=== PATIENT | male | born 1960 | race Caucasian/White ===

== ENCOUNTER → 2018-02-04 08:38 | Outpatient (REF) | payer OTHER, SELFPAY ==
[2018-02-04 18:50] LABS: Basophils # 0.1 K/mm3 (0-0.2); Basophils % 1.3 % (0.1-2.0); Eosinophils # 0.1 K/mm3 (0.0-0.4); Eosinophils % 1.3 % (0.1-12.0); Hematocrit 45.3 % (42.0-52.0); Hemoglobin 14.6 g/dL (14.1-18.0); Lymphocytes # 1.5 K/mm3 (0.7-4.5); Lymphocytes % 27.1 K/mm3 (10-50); Mean Corpuscular HGB Conc 32.3 g/dL (31.8-35.4); Mean Corpuscular Hemoglobin 29.5 pg (27.0-31.2); Mean Corpuscular Volume 91.5 fl (80-94); Monocytes # 0.4 K/mm3 (0.1-1.0); Monocytes % 6.5 % (1.7-9.3); Neutrophils # 3.4 K/mm3 (1.8-7.8); Neutrophils % 63.9 % (37.0-80.0); Platelet Count 325 K/mm3 (142-424); Red Blood Count 4.95 M/mm3 (4.60-6.20); Red Cell Distribution Width 13.6 % (11.5-17.5); White Blood Count 5.4 K/mm3 (4.8-10.8)
[2018-02-04 20:18] LABS: Alanine Aminotransferase 56 U/L (12-78); Albumin/Globulin Ratio 1.2 (1.1-1.8); Alkaline Phosphatase 130 U/L (46-116); Anion Gap 14.7 mEq/L (5-15); Aspartate Amino Transferase 31 U/L (15-37); Bilirubin,Total 0.3 mg/dL (0.2-1.0); Blood Urea Nitrogen 10 mg/dL (7-18); Calcium 9.1 mg/dL (8.5-10.1); Carbon Dioxide 28 mmol/L (21.0-32.0); Chloride 105 mmol/L (98-107); Cholesterol 175 mg/dL (140-200); Creatinine,Serum 0.86 mg/dL (0.70-1.30); Estimated Glomerular Filt Rate 92 ml/min (>60); GFR (African American) 111 ML/MIN (>60); Globulin 3.4 gm/dl (1.3-3.2); Glucose 98 mg/dL (74-106); HDL Cholesterol 35 mg/dL (27-67); LDL Cholesterol 72 mg/dL (0-130); Potassium 4.7 mmoL/L (3.5-5.1); Sodium 143 mmol/L (136-145); Thyroid Stimulating Hormone 1.49 uIU/ml (0.358-3.740); Total Protein,Serum 7.4 gm/dL (6.4-8.2); Triglycerides 341 mg/dL (30-200); VLDL Cholesterol 68 mg/dL (0-40)
== END ==
LOC: LAB 08:38
PROVIDERS: Visit Provider Nurse Practitioner Family
DX: I10 Essential (primary) hypertension (principal)
CPT/HCPCS: 80053; 80061; 82652; 84436; 84443; 85025

== ENCOUNTER → 2018-06-05 11:21 | Outpatient (CLI) | payer OTHER, SELFPAY ==
--- NOTE | 2018-06-05 11:26 | XR_ITS ---
XR hip RT 2-3V w/pelvis Ordering Physician: Umair Hawthorne MD Patient Age: 57 years: Male HISTORY: ITS.REASON: rt hip painAP pelvis with TECHNIQUE: AP and frog-leg view right hip.. COMPARISON :None FINDINGS The right femoral head and neck intact. Femoral head normal contour. Right hip joint space well maintained with only scant sclerosis about the joint Acetabulum is some minor hypertrophic lipping at its superior margin bilaterally at hips. Hip joint spaces adequately maintained with only borderline narrowing superiorly.. There could be some early subchondral cystic changes at the roof of the acetabulum on right more so than left. Equivocal. Degenerative facet changes at the lower L-spine L5/S1 noted The osseous pelvis is intact SI joints intact pubis and superior/inferior ramus intact. IMPRESSION: . Right hip intact. Only question some scant subtle degenerative changes at hips radiographically. Scant hypertrophic lipping superior rim of acetabulum possible early subchondral cystic changes roof of acetabulum question on plain film
== END ==
PROVIDERS: PCP Nurse Practitioner Family; Visit Provider Orthopaedic Surgery
DX: M25.551 Pain in right hip (principal)
CPT/HCPCS: 73502

== ENCOUNTER → 2018-06-17 13:33 | Outpatient (CLI) | payer OTHER, SELFPAY ==
--- NOTE | 2018-06-17 13:35 | MR_ITS ---
MR hip RT wo con Ordering Physician: Meredith Gordon MD Patient Age: 57 years: Male HISTORY severe right hip pain for 3 months.. Right leg pain with 18 at right ridley. No known injury . ITS.REASON: rule out AVN/ septic arthritis TECHNIQUE: Multiplanar multisequence imaging on 1.5 Jay[facility] MRI. COMPARISON :Plain films right hip 08/05/2017 FINDINGS A right & left femoral head appears symmetric and normal contour normal signal. No evidence of AVN in either hip. There is actually normal signal at both femoral heads.. RIGHT HIP : Arthritic Changes & Irregularities Involving involving the right acetabulum. ..:. Most notable is a focal moderate slightly generous subchondral cyst at the anterior/ superior aspect of the acetabulum this measuring up to 14 mm AP x 12 mm depth as nicely seen on sagittal image 18.. Associated small area of focal chondral thinning/loss here- at this developing osteochondral irregularity Also note more subtle degenerative signal changes, with possibly tiny developing subchondral cyst at the posterior superior acetabulum. These are best seen axial STIR slice 8, and sagittal slice 16 LEFT HIP.. Only very subtle increase signal likely reflecting early reactive degenerative changes at the posterior superior rim of acetabulum. Coronal image 16-14 Pelvic musculature well-developed. Moderate size prostate. SI joints, visualized inferior sacrum unremarkable. . There are generous fat along the right inguinal canal more so than left.. Generous caliber slightly dilated right inguinal ring -in fact Sagittal image 16 suggest developing fat-containing inguinal hernia. Clinical correlation required. -----IMPRESSION 1. 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 Most notable is the up to 14 mm AP Focal subchondral cystic feature// osteochondral irregularity at anterior superior acetabulum, ... With only Subtle reactive degenerative changes at posterior superior acetabulum 2. No evidence of AVN in either hip. Femoral heads normal contour & density. 3.Only question scant degenerative changes at the left hip 3. Generous fat along the right inguinal canal. Laxity at slight dilated right inguinal ring. Sagittal image suggest likely developing fat-containing right inguinal hernia.. No bowel loops
== END ==
PROVIDERS: PCP Emergency Medicine; Visit Provider Orthopaedic Surgery
DX: M25.551 Pain in right hip (principal)
CPT/HCPCS: 73721

== ENCOUNTER → 2019-01-23 07:27 | Outpatient (CLI) | payer OTHER, SELFPAY ==
[2019-01-23 07:44] LABS: Basophils # 0.1 K/mm3 (0-0.2); Eosinophils # 0.1 K/mm3 (0.0-0.4); Hematocrit 43.1 % (42.0-52.0); Lymphocytes # 1.5 K/mm3 (0.7-4.5); Lymphocytes % 24.7 % (10-50); Mean Corpuscular HGB Conc 32.5 g/dL (31.8-35.4); Mean Corpuscular Hemoglobin 29.5 pg (27.0-31.2); Mean Corpuscular Volume 90.9 fl (80-94); Monocytes # 0.3 K/mm3 (0.1-1.0); Monocytes % 5.5 % (1.7-9.3); Neutrophils # 4.1 K/mm3 (1.8-7.8); Neutrophils % 67.8 % (37.0-80.0); Platelet Count 361 K/mm3 (142-424); Red Blood Count 4.74 M/mm3 (4.60-6.20); Red Cell Distribution Width 13.5 % (11.5-17.5)
[2019-01-23 11:34] LABS: Alanine Aminotransferase 39 U/L (12-78); Albumin Level 3.8 gm/dL (3.4-5.0); Albumin/Globulin Ratio 1.2 (1.1-1.8); Alkaline Phosphatase 126 U/L (46-116); Anion Gap 15.5 mEq/L (5-15); Aspartate Amino Transferase 26 U/L (15-37); Bilirubin,Total 0.6 mg/dL (0.2-1.0); Blood Urea Nitrogen 10 mg/dL (7-18); Calcium 9.1 mg/dL (8.5-10.1); Carbon Dioxide 25 mmol/L (21.0-32.0); Chloride 102 mmol/L (98-107); Chol/HDL Ratio 3.8 (1-3.5); Cholesterol 132 mg/dL (140-200); Estimated Glomerular Filt Rate 87 ml/min (>60); GFR (African American) 105 ML/MIN (>60); Globulin 3.2 gm/dl (1.3-3.2); Glucose 90 mg/dL (74-106); HDL Cholesterol 35 mg/dL (27-67); LDL Cholesterol 69 mg/dL (0-130); Potassium 4.5 mmoL/L (3.5-5.1); Sodium 138 mmol/L (136-145); Triglycerides 139 mg/dL (30-200); VLDL Cholesterol 28 mg/dL (0-40)
[2019-01-26 03:31] LABS: Vitamin D 25 Hydroxy 44.4 ng/mL (30.0-100.0)
== END ==
PROVIDERS: Visit Provider Internal Medicine Cardiovascular Disease
DX: R01.1 Cardiac murmur, unspecified (principal); R42 Dizziness and giddiness; E78.5 Hyperlipidemia, unspecified; I10 Essential (primary) hypertension; I65.22 Occlusion and stenosis of left carotid artery
CPT/HCPCS: 36415; 80053; 80061; 82652; 85025

== ENCOUNTER → 2019-06-16 09:09 | Outpatient (CLI) | payer OTHER, SELFPAY ==
--- NOTE | 2019-06-16 09:18 | US_ITS ---
PROCEDURE: US GALLBLADDER CLINICAL INDICATION: abdominal pain and diarrhea Nausea after eating COMPARISON: No exams were available for comparison FINDINGS: Pancreas: Unremarkable/Not well seen Liver: Diffuse hepatic steatosis. No focal liver lesion demonstrated. There is appropriate direction of blood flow within a non dilated portal vein. Right kidney: Unremarkable appearing. No hydronephrosis. Gallbladder: No stones are evident. There is no gallbladder wall thickening. Common duct is normal in diameter. IMPRESSION: Negative gallbladder ultrasound. No stones evident. Hepatic steatosis Dictated by: Michael Zaragoza MD 06/16/2019 19:51 Electronically signed by Michael Zaragoza MD in [place] 06/16/2019 19:51
== END ==
PROVIDERS: PCP Emergency Medicine; Visit Provider Surgery
DX: K82.9 Disease of gallbladder, unspecified (principal); R10.9 Unspecified abdominal pain; R11.10 Vomiting, unspecified; R19.7 Diarrhea, unspecified
CPT/HCPCS: 76705

== ENCOUNTER → 2020-07-29 18:48 | Outpatient (CLI) | payer OTHER, SELFPAY ==
[2020-07-29 19:12] LABS: Basophils # 0.1 K/mm3 (0-0.2); Basophils % 1.1 % (0.1-2.0); Eosinophils # 0.1 K/mm3 (0.0-0.4); Eosinophils % 0.8 % (0.1-12.0); Hematocrit 42.8 % (42.0-52.0); Hemoglobin 14.5 g/dL (14.1-18.0); Lymphocytes # 2.1 K/mm3 (0.7-4.5); Lymphocytes % 28.3 % (10-50); Mean Corpuscular HGB Conc 33.8 g/dL (31.8-35.4); Mean Corpuscular Hemoglobin 30.3 pg (27.0-31.2); Mean Corpuscular Volume 89.6 fl (80-94); Mean Platelet Volume 8.1 fl (7.4-10.4); Monocytes # 0.5 K/mm3 (0.1-1.0); Monocytes % 7.2 % (1.7-9.3); Neutrophils # 4.6 K/mm3 (1.8-7.8); Neutrophils % 62.6 % (37.0-80.0); Platelet Count 370 K/mm3 (142-424); Red Blood Count 4.78 M/mm3 (4.60-6.20); Red Cell Distribution Width 13.8 % (11.5-17.5); White Blood Count 7.4 K/mm3 (4.8-10.8)
[2020-07-29 19:20] LABS: Alanine Aminotransferase 62 U/L (12-78); Albumin Level 4.6 g/dl (3.5-5.0); Albumin/Globulin Ratio 1.5 (1.1-1.8); Alkaline Phosphatase 130 U/L (38-126); Anion Gap 13.1 mEq/L (5-15); Aspartate Amino Transferase 52 U/L (17-59); Bilirubin,Total 0.4 mg/dl (0.2-1.3); Blood Urea Nitrogen 9 mg/dl (9-20); Carbon Dioxide 27 mmol/L (22.0-30.0); Chloride 99 mmol/L (98-107); Cholesterol 189 mg/dl (140-200); Estimated Glomerular Filt Rate 99 ml/min (>60); GFR (African American) 120 ML/MIN (>60); Glucose 123 mg/dl (74-100); HDL Cholesterol 38 mg/dl (40-60); Potassium 4.1 mmoL/L (3.5-5.1); Sodium 135 mmol/L (136-145); Total Protein,Serum 7.6 g/dl (6.3-8.2); Triglycerides 368 mg/dl (30-150); VLDL Cholesterol 74 mg/dL (0-40)
[2020-07-29 19:31] LABS: Direct LDL Cholesterol 88.32 mg/dL (100-129)
[2020-07-29 19:38] LABS: Free T4 (Free Thyroxine) 0.77 ng/dl (0.78-2.19)
[2020-07-29 19:53] LABS: Prostate Specific Ag Screen 0.2 ng/ml (0.0-4.0); Thyroid Stimulating Hormone 1.48 uIU/mL (0.465-4.68)
== END ==
PROVIDERS: PCP Nurse Practitioner Family; Visit Provider Nurse Practitioner Family
DX: Z00.00 Encounter for general adult medical examination without abnormal findings (principal); Z12.5 Encounter for screening for malignant neoplasm of prostate; I10 Essential (primary) hypertension; E78.5 Hyperlipidemia, unspecified
CPT/HCPCS: 80053; 80061; 84439; 84443; 85025; G0103

== ENCOUNTER 2020-11-14 13:16 | Emergency (ER) | payer OTHER, SELFPAY ==
[2020-11-14 13:17] VITALS: BP 173/84; PULSE 67; RESP 16; TEMP 36.6; O2SAT 98; BMI 31.6
--- NOTE | 2020-11-14 14:16 | HMH.EDGENADL ---
ED Disposition Clinical Impression: Lumbar strain Qualifiers: Encounter type: initial encounter Qualified Code(s): S39.012A - Strain of muscle, fascia and tendon of lower back, initial encounter Disposition: Home, Self-Care Condition on Discharge: Good Instructions: DI for Low Back Pain Additional Instructions: Rosepine and ibuprofen for pain. Additional instructions for BACK PAIN: See your physician as soon as possible for further evaluation. Return immediately if back pain becomes intolerable, or if fever, numbness or weakness of your legs, loss of control of your bowels or bladder. Additional instructions for CONTROLLED SUBSTANCES: You have been prescribed a medication that is a controlled substance. Controlled substances include pain medications known as opiates and sedative nerve medications known as benzodiazepines. Tramadol, fioricet, and gabapentin are also controlled substances. Some common opiates include: Codeine (such as Tylenol #3) Hydrocodone (Vicodin, Lortab, Lorcet, Rosepine) Oxycodone (Percocet, Percodan, Oxycodone, Oxy IR) Some common benzodiazepines include: Diazepam (Valium) Lorazepam (Ativan) Alprazolam (Xanax) Clonazepam (Klonopin) Oxazepam (Serax) All of these controlled substances are highly addictive and frequently abused. Misuse can and frequently does lead to addiction as well as overdose and . Medication should be stored in a locked cabinet or other secure storage unit. Do not store the medication in a motor vehicle. Short term supplies, 3 days or less, are prescribed because of the highly addictive nature of the medication. Any of the controlled substance medication NOT taken should be disposed of properly and NOT SAVED. The recommended method of disposing of unused medications is: Place the medicines in a sealable plastic bag. If the medicine is a solid, crush it or add water to dissolve it. Add something undesirable (cat litter, coffee grounds, etc.) Dispose of sealed bag in household trash Do not flush or pour unused medicines down a sink or drain. Controlled substances should not be shared, given away or sold. Because of the addictive nature and frequent abuse, these medications are sometimes stolen. These medications should be kept in a safe place where they cannot be stolen. Do not keep them in your car or purse. Lost or stolen prescriptions for controlled substances WILL NOT BE REFILLED in this emergency department, regardless of whether a police report was filed. Prescriptions: Hydrocod/Acet 5/325 mg [Rosepine 5/325mg tablet] 1 tab PO Q6HP PRN #10 tab PRN Reason: Pain Transmission Status: Received by [id number] Ibuprofen [Ibuprofen 800mg Tablet] 800 mg PO Q8HP PRN #15 tab PRN Reason: Moderate Pain Transmission Status: Pending to [id number] Referrals: Chip Falcon MD [Primary Care Provider] - - Critical Care Critical Care Time: No Attestation: On 11/14/20, the high probability of a clinically significant, sudden or life threatening deterioration of the following system(s) required my full and direct attention, intervention and personal management. The time I documented below is in addition to time spent performing reported procedures but includes the following listed in this critical care notation. Medical Decision Making - Rancho Inquiry Pt receiving controlled substance: Yes Rancho was queried for this patient: Yes Risks and benefits of using a controlled substance: were discussed with pt by me Vital Signs: 11/14/20 13:17 Temperature 98 F Temperature Source Oral Pulse Rate [Radial] 67 Respiratory Rate 16 Blood Pressure [Right Arm] 173/84 H Blood Pressure Mean [Right Arm] 113 Blood Pressure Position [Right Arm] Sitting 02 Sat by Pulse Oximetry 98 Oxygen Delivery Method Room Air Orders (Tests/Meds): ED MEDICATIONS Discontinued Medications Generic Name Dose Route Start Last Admin Trade Name F
[2020-11-14 14:51] VITALS: BP 160/83; PULSE 88; RESP 97; TEMP 36.6
== END 2020-11-14 14:52 | disposition home or self-care (01) ==
PROVIDERS: Emergency Provider Emergency Medicine; PCP Emergency Medicine
DX: S39.012A Strain of muscle, fascia and tendon of lower back, initial encounter (principal); X50.1XXA Overexertion from prolonged static or awkward postures, initial encounter; Y92.89 Other specified places as the place of occurrence of the external cause; I10 Essential (primary) hypertension; E78.5 Hyperlipidemia, unspecified; K21.9 Gastro-esophageal reflux disease without esophagitis; F33.1 Major depressive disorder, recurrent, moderate; Z79.899 Other long term (current) drug therapy
CPT/HCPCS: 96372; 99281; J2405

== ENCOUNTER → 2021-01-25 13:53 | Outpatient (CLI) | payer SELFPAY | PROVIDERS: Visit Provider Nurse Practitioner Family | DX: L98.9 Disorder of the skin and subcutaneous tissue, unspecified (principal) | CPT/HCPCS: 87070; 87077; 87186; 87205 ==

== ENCOUNTER → 2021-03-10 17:11 | Outpatient (CLI) | payer SELFPAY ==
[2021-03-10 17:46] LABS: Adenovirus,PCR Not Detected (NotDetected); Bordetella Pertussis Not Detected (NotDetected); Chlamydophila Pneumoniae, PCR Not Detected (NotDetected); Coronavirus 229E Not Detected (NotDetected); Coronavirus NL63 Not Detected (NotDetected); Coronavirus OC43 Not Detected (NotDetected); Coronovirus HKU1,PCR Not Detected (NotDetected); Human Metapneumovirus Not Detected (NotDetected); Influenza A, PCR Not Detected (NotDetected); Influenza AH1, 2009 Not Detected (NotDetected); Influenza AH1, PCR Not Detected (NotDetected); Influenza AH3,PCR Not Detected (NotDetected); Influenza B, PCR Not Detected (NotDetected); Mycoplasma Pneumoniae, PCR Not Detected (NotDetected); Parainfluenza 1, PCR Not Detected (NotDetected); Parainfluenza 2, PCR Not Detected (NotDetected); Parainfluenza 3, PCR Not Detected (NotDetected); Parainfluenza 4, PCR Not Detected (NotDetected); Respiratory Syncytial Virus Not Detected (NotDetected); Rhinovirus/Enterovirus Not Detected (NotDetected)
== END ==
PROVIDERS: Visit Provider Nurse Practitioner Family
DX: Z20.822 Contact with and (suspected) exposure to COVID-19 (principal)
CPT/HCPCS: 87486; 87581; 87633; 87798; U0003

== ENCOUNTER → 2021-03-21 08:24 | Outpatient (CLI) | payer SELFPAY ==
--- NOTE | 2021-03-21 08:33 | US_ITS ---
PROCEDURE: US GALLBLADDER CLINICAL INDICATION: RUQ Pain COMPARISON: US US GALLBLADDER from 06/16/2019 FINDINGS: Pancreas: Unremarkable/Not well seen Liver: Diffuse increased echogenicity of the liver with poor through transmission of sound consistent with hepatic steatosis. No focal liver lesion demonstrated. There is appropriate direction of blood flow within non dilated portal vein.There is appropriate direction of blood flow within a non dilated portal vein. Right kidney: Unremarkable appearing. No hydronephrosis. Gallbladder: No shadowing stones. No mobile stones. Small focus of increased echogenicity is present in the region of the neck of the gallbladder possibly due to small stone. This however is questionable. MRI with MRCP may confirm if clinically desired. IMPRESSION: Fatty liver. Possible small stone in the neck of the gallbladder. This is questionable. MRI/MRCP may confirm if clinically warranted Dictated by: Michael Zaragoza MD 03/21/2021 11:45 Michael Zaragoza MD in [place] 03/21/2021 11:45
== END ==
PROVIDERS: PCP Emergency Medicine; Visit Provider Nurse Practitioner Family
DX: R10.11 Right upper quadrant pain (principal)
CPT/HCPCS: 76705

== ENCOUNTER → 2021-07-21 17:30 | Outpatient (CLI) | payer SELFPAY ==
[2021-07-21 17:35] LABS: Coronavirus 19, PCR Not Detected (NotDetected); Influenza A, PCR Not Detected (NotDetected); Influenza B, PCR Not Detected (NotDetected)
== END ==
PROVIDERS: Visit Provider Nurse Practitioner Family
DX: Z20.822 Contact with and (suspected) exposure to COVID-19 (principal); R05.9 Cough, unspecified
CPT/HCPCS: C9803; U0003; U0005

== ENCOUNTER → 2021-10-29 10:00 | Outpatient (CLI) | payer MEDICAID, SELFPAY ==
[2021-10-29 11:01] LABS: Basophils # 0.1 K/mm3 (0-0.2); Basophils % 1.9 % (0.1-2.0); Eosinophils % 0.9 % (0.1-12.0); Hematocrit 42.1 % (42.0-52.0); Hemoglobin 14.1 g/dL (14.1-18.0); Lymphocytes # 1.5 K/mm3 (0.7-4.5); Lymphocytes % 31.8 % (10-50); Mean Corpuscular HGB Conc 33.4 g/dL (31.8-35.4); Mean Corpuscular Hemoglobin 30.7 pg (27.0-31.2); Mean Corpuscular Volume 91.9 fl (80-94); Monocytes # 0.3 K/mm3 (0.1-1.0); Monocytes % 6.1 % (1.7-9.3); Neutrophils # 2.9 K/mm3 (1.8-7.8); Neutrophils % 59.3 % (37.0-80.0); Platelet Count 318 K/mm3 (142-424); Red Blood Count 4.58 M/mm3 (4.60-6.20); Red Cell Distribution Width 14.2 % (11.5-17.5); White Blood Count 4.9 K/mm3 (4.8-10.8)
[2021-10-29 11:23] LABS: Hemoglobin A1C 6.8 % (4.0-6.0)
[2021-10-29 11:37] LABS: Alanine Aminotransferase 60 U/L (12-78); Albumin Level 4.1 g/dl (3.5-5.0); Albumin/Globulin Ratio 1.6 (1.1-1.8); Alkaline Phosphatase 119 U/L (38-126); Anion Gap 12.4 mEq/L (5-15); Aspartate Amino Transferase 58 U/L (17-59); Bilirubin,Total 0.6 mg/dl (0.2-1.3); Blood Urea Nitrogen 9 mg/dl (9-20); Calcium 9.1 mg/dl (8.4-10.2); Carbon Dioxide 25 mmol/L (22.0-30.0); Chloride 105 mmol/L (98-107); Chol/HDL Ratio 4.8 (1-3.5); Cholesterol 158 mg/dl (140-200); Estimated Glomerular Filt Rate 115 ml/min (>60); GFR (African American) 139 ML/MIN (>60); Globulin 2.6 g/dL (1.3-3.2); Glucose 113 mg/dl (74-100); HDL Cholesterol 33 mg/dl (40-60); Potassium 4.4 mmoL/L (3.5-5.1); Sodium 138 mmol/L (136-145); Total Protein,Serum 6.7 g/dl (6.3-8.2); Triglycerides 197 mg/dl (30-150); VLDL Cholesterol 39 mg/dL (0-40)
[2021-10-29 11:53] LABS: Free T4 (Free Thyroxine) 0.63 ng/dl (0.78-2.19)
[2021-10-29 12:07] LABS: Prostate Specific Ag Screen 0.2 ng/ml (0.0-4.0)
[2021-10-29 12:10] LABS: Thyroid Stimulating Hormone 1.36 uIU/mL (0.465-4.68)
== END ==
PROVIDERS: Visit Provider Emergency Medicine
DX: I10 Essential (primary) hypertension (principal); Z79.899 Other long term (current) drug therapy; Z12.5 Encounter for screening for malignant neoplasm of prostate
CPT/HCPCS: 36415; 80053; 80061; 83036; 84439; 84443; 85025; G0103

== ENCOUNTER → 2021-11-09 10:53 | Outpatient (CLI) | payer MEDICAID, SELFPAY | PROVIDERS: Visit Provider Plastic Surgery | DX: Z11.52 Encounter for screening for COVID-19 (principal); C44.612 Basal cell carcinoma of skin of right upper limb, including shoulder; L98.9 Disorder of the skin and subcutaneous tissue, unspecified | CPT/HCPCS: C9803; U0003; U0005 ==

== ENCOUNTER 2022-01-21 15:43 | Emergency (ER) | payer MEDICAID, SELFPAY ==
[2022-01-21 15:43] VITALS: BP 170/85; PULSE 85; RESP 19; TEMP 36.8; O2SAT 98; BMI 32.5
--- NOTE | 2022-01-21 15:54 | HMH.EDGENADL ---
ED Disposition Clinical Impression: Chest pain Qualifiers: Chest pain type: precordial pain Qualified Code(s): R07.2 - Precordial pain Disposition: Home, Self-Care Condition on Discharge: Good Instructions: DI for Chest Pain Additional Instructions: See Dr. Yoo in his office on Sunday morning at 9 AM. Additional instructions for CHEST PAIN: Return immediately if worsening chest pain, vomiting, shortness of breath, fever, coughing of blood. Prescriptions: bisoproloL fumarate [Bisoprolol Fumarate] 10 mg PO DAILY #14 tab Transmission Status: Pending to [id number] Isosorbide Mononitrate [Imdur 30mg ER tablet] 30 mg PO DAILY #14 tab Transmission Status: Pending to [id number] Referrals: Chip Falcon MD [Primary Care Provider] - - Critical Care Critical Care Time: No Attestation: On , the high probability of a clinically significant, sudden or life threatening deterioration of the following system(s) required my full and direct attention, intervention and personal management. The time I documented below is in addition to time spent performing reported procedures but includes the following listed in this critical care notation. Medical Decision Making - Rancho Inquiry Pt receiving controlled substance: No Rancho was queried for this patient: Yes Vital Signs: 01/21/22 15:43 01/21/22 16:00 01/21/22 16:31 Temperature 98.3 F Temperature Source Oral Pulse Rate 77 75 Pulse Rate [Right Radial] 85 Respiratory Rate 19 16 16 Blood Pressure 164/95 H 147/79 H Blood Pressure [Right Arm] 170/85 H Blood Pressure Mean 118 101 Blood Pressure Mean [Right Arm] 113 Blood Pressure Source [Right Arm] Automatic Cuff Blood Pressure Position [Right Arm] Sitting 02 Sat by Pulse Oximetry 98 96 98 Oxygen Delivery Method Room Air 01/21/22 17:30 01/21/22 18:01 Temperature Temperature Source Pulse Rate 73 65 Pulse Rate [Right Radial] Respiratory Rate 15 15 Blood Pressure 143/79 H 125/64 Blood Pressure [Right Arm] Blood Pressure Mean 98 84 Blood Pressure Mean [Right Arm] Blood Pressure Source [Right Arm] Blood Pressure Position [Right Arm] 02 Sat by Pulse Oximetry 97 95 Oxygen Delivery Method - Lab Data Lab Results 01/21/22 15:50: Sodium 130 L, Potassium 4.1, Chloride 99, Carbon Dioxide 22, Anion Gap 13.1, BUN 10, Creatinine 0.60 L, Estimated Creat Clear 109, Estimated GFR 137, Est GFR ( Amer) 166, Glucose 255 H, Calcium 8.8, Troponin I 0.01 01/21/22 16:41: WBC 7.2, RBC 4.23 L, Hgb 12.5 L, Hct 39.1 L, MCV 92.4, MCH 29.6, MCHC 32.0, RDW 14.0, Plt Count 281, MPV 7.2 L, Neut % (Auto) 64.1, Lymph % (Auto) 25.7, [place] % (Auto) 7.7, Eos % (Auto) 0.8, Baso % (Auto) 1.7, Neut # (Auto) 4.6, Lymph # (Auto) 1.9, [place] # (Auto) 0.6, Eos # (Auto) 0.1, Baso # (Auto) 0.1 01/21/22 17:30: SARS-CoV-2 (PCR) Not detected, Influenza A Untype (PCR) Not detected, Influenza Type B (PCR) Not detected 01/21/22 18:31: Troponin I 0.02 Result diagrams: 01/21/22 16:41 01/21/22 15:50 Orders (Tests/Meds): ED MEDICATIONS Generic Name Dose Route Start Last Admin Trade Name Freq PRN Reason Stop Dose Admin Bisoprolol Fumarate 10 mg 01/21/22 17:00 01/21/22 17:31 Bisoprolol 5mg Tablet PO 02/20/22 16:59 10 mg DAILY EROS Administration Isosorbide Mononitrate 30 mg 01/21/22 17:00 01/21/22 17:31 Isosorbide [place] 30mg Tab.Er.24h PO 02/20/22 16:59 30 mg DAILY EROS Administration Sodium Chloride 10 ml 01/21/22 15:59 Sodium Chloride 0.9% 10ml Flush Syringe IV 02/20/22 15:58 NEEDED PRN Maintain IV Site Discontinued Medications Generic Name Dose Route Start Last Admin Trade Name Freq PRN Reason Stop Dose Admin Aspirin 324 mg 01/21/22 16:03 01/21/22 16:49 Aspirin 81mg Chewable Tablet PO 01/21/22 16:04 324 mg ONCE ONE Administration Nitroglycerin 0.4 mg 01/21/22 16:02 Nitroglycerin 0.4mg Sl Tablet SL 02/20/22 16:01 Q5M
--- NOTE | 2022-01-21 15:59 | XR_ITS ---
PROCEDURE INFORMATION: Exam: XR Chest Exam date and time: 01/21/2022 4:04 PM Age: 61 years old Clinical indication: Shortness of breath; Additional info: Cp TECHNIQUE: Imaging protocol: Radiologic exam of the chest. Views: 1 view. COMPARISON: CR CXR CHEST(2 VIEWS-NOT PORTABLE) 03/21/2016 9:15 PM FINDINGS: Airway: The airways are patent. Lungs: No acute interstitial or airspace disease. Pleural spaces: No pleural effusions or pneumothorax. Heart/Mediastinum: The heart is mildly enlarged. Vasculature: Coronary artery stents are suggested. Consider correlation with surgical history. Bones/joints: No acute skeletal abnormality or aggressive osseous lesion. IMPRESSION: No acute thoracic pathology.
--- NOTE | 2022-01-21 15:59 | ECG_ITS ---
APPROVED REPORT Exam: Resting ECG HR:82 bpm ECG Measurements Heart Rate 82 AXES MI 137 P -23 QRSd 82 QRS 108 QT 354 T 147 QTc 393 Conclusion SINUS RHYTHM RIGHT AXIS DEVIATION [QRS AXIS > 100] NONSPECIFIC T-WAVE ABNORMALITY ABNORMAL ECG UNCONFIRMED REPORT Electronically signed by : Cale Diana MD 01/23/2022 21:32:19
[2022-01-21 16:00] VITALS: BP 164/95; PULSE 77; RESP 16; O2SAT 96
[2022-01-21 16:08] LABS: Chloride 99 mmol/L (98-107); Potassium 4.1 mmoL/L (3.5-5.1); Sodium 130 mmol/L (136-145)
[2022-01-21 16:11] LABS: Anion Gap 13.1 mEq/L (5-15); Blood Urea Nitrogen 10 mg/dl (9-20); Calcium 8.8 mg/dl (8.4-10.2); Carbon Dioxide 22 mmol/L (22.0-30.0); Creatinine Clearance Estimated 109 mL/min (50-200); Estimated Glomerular Filt Rate 137 ml/min (>60); GFR (African American) 166 ML/MIN (>60); Glucose 255 mg/dl (74-100)
[2022-01-21 16:24] LABS: Troponin I 0.01 ng/ml (0.00-0.034)
[2022-01-21 16:31] VITALS: BP 147/79; PULSE 75; RESP 16; O2SAT 98
[2022-01-21 17:18] LABS: Basophils # 0.1 K/mm3 (0-0.2); Basophils % 1.7 % (0.1-2.0); Eosinophils # 0.1 K/mm3 (0.0-0.4); Eosinophils % 0.8 % (0.1-12.0); Hematocrit 39.1 % (42.0-52.0); Hemoglobin 12.5 g/dL (14.1-18.0); Lymphocytes # 1.9 K/mm3 (0.7-4.5); Lymphocytes % 25.7 % (10-50); Mean Corpuscular Hemoglobin 29.6 pg (27.0-31.2); Mean Corpuscular Volume 92.4 fl (80-94); Mean Platelet Volume 7.2 fl (7.4-10.4); Monocytes # 0.6 K/mm3 (0.1-1.0); Monocytes % 7.7 % (1.7-9.3); Neutrophils # 4.6 K/mm3 (1.8-7.8); Neutrophils % 64.1 % (37.0-80.0); Platelet Count 281 K/mm3 (142-424); Red Blood Count 4.23 M/mm3 (4.60-6.20); White Blood Count 7.2 K/mm3 (4.8-10.8)
[2022-01-21 17:30] VITALS: BP 143/79; PULSE 73; RESP 15; O2SAT 97
[2022-01-21 18:01] VITALS: BP 125/64; PULSE 65; RESP 15; O2SAT 95
[2022-01-21 18:05] LABS: Coronavirus 19, PCR Not Detected (NotDetected); Influenza A, PCR Not Detected (NotDetected); Influenza B, PCR Not Detected (NotDetected)
--- NOTE | 2022-01-21 18:05 | PC.NURSE ---
pt states feeling better after meds given
[2022-01-21 19:08] LABS: Troponin I 0.02 ng/ml (0.00-0.034)
[2022-01-21 19:51] VITALS: BP 121/78; PULSE 61; RESP 16; TEMP 37.1; O2SAT 96
== END 2022-01-21 19:57 | disposition home or self-care (01) ==
PROVIDERS: Emergency Provider Emergency Medicine; PCP Emergency Medicine
DX: R07.2 Precordial pain (principal); Z79.82 Long term (current) use of aspirin; Z79.84 Long term (current) use of oral hypoglycemic drugs; Z79.899 Other long term (current) drug therapy; Z88.1 Allergy status to other antibiotic agents; E11.9 Type 2 diabetes mellitus without complications; I10 Essential (primary) hypertension; E78.5 Hyperlipidemia, unspecified; K21.9 Gastro-esophageal reflux disease without esophagitis; F32.A Depression, unspecified
CPT/HCPCS: 36415; 71045; 80048; 84484; 85025; 93005; 99284; C9803; U0003; U0005

== ENCOUNTER → 2022-01-30 07:11 | Outpatient (CLI) | payer MEDICAID, SELFPAY ==
--- NOTE | 2022-01-30 07:11 | CA_ITS ---
APPROVED REPORT EXAM: Comprehensive 2D, Doppler, and color-flow Echocardiogram Sr Account Executive: Ana Dickens CRT Ht: 5 ft 9 in Wt: 220lbs BSA: 2.15 BP: 120/69 mmHg Indications: Chest Pain, Shortness of Breath, CAD, Hyperlipidemia, Hypertension/HDD 2D Dimensions LVOT 1.94 cm (M/F) 1.5-2.5 M-Mode Dimensions RVDd 2.86 cm (0.9-2.6) LA Diam 3.21 cm (1.9-4.0) LVDd 4.00 cm (3.5-5.7) Ao Diam 4.41 cm (2.0-3.7) LVDs 2.19 cm (3.5-5.7) IVSd 1.60 cm (0.6-1.1) PWd 1.11 cm (0.6-1.1) EF (Teich) 77.10% FS 45.30% EDV (Teich) 70.00 mL TAPSE 2.06 (<1.7) ESV (Teich) 16.00 mL LV Diastology E Decel Time 340.00 (160-240 msec) E/A Ratio 1.05 MED E' 4.70 (< 7 cm/sec) MED A' 9.50 cm/s E'/MED E' Ratio 16.98 (>14) LAT E' 4.80 (<10 cm/sec) LAT A' 10.00 cm/s E/LAT E' Ratio 16.62 (>14) Aortic Valve AI PHT 438.00 ms AO Peak GR. 9.60 mmHg Mitral Valve MV E Max Josh. 80.00 (40-130 cm/s) MV A Velocity 76.00 (40-130 cm/s) E/A Ratio 1.05 MV Decel. Time 340.00 (160-240 ms) MV PHT 100.00 ms Pulmonary Valve PV Peak Velocity 100.00 (50-150 cm/s) Tricuspid Valve TR P. Velocity 233.00 cm/s RAP Estimate 10.00 mmHg RVSP 31.80 mmHg Left Ventricle Atrium is mildly enlarged, left ventricle is normal size, mild concentric left ventricular hypertrophy, estimated ejection fraction 55% with no regional wall motion abnormality, grade 1 diastolic dysfunction seen without tissue Doppler evidence of raise left atrial pressure. Right Ventricle Right atrium and right ventricle are mildly enlarged with normal contractility. Aortic Valve Aortic valve is minimally thickened and fibrosed there is no aortic stenosis, there is trace aortic insufficiency. Mitral Valve Mitral valve is grossly normal, there is trace mitral regurgitation. Tricuspid Valve Tricuspid valve grossly normal, there is trace tricuspid regurgitation, tricuspid regurgitation jet velocity is inadequate for calculation of the right ventricular systolic pressure. Pulmonic Valve Pulmonic valve is poorly visualized. Great Vessels Aortic root is normal size. Inferior vena cava is poorly visualized. Pericardium No significant pericardial effusion. Conclusion 1. Biatrial enlargement, normal left ventricular size, mild concentric left ventricular hypertrophy, estimated ejection fraction 55% with no regional wall motion abnormality, grade 1 diastolic dysfunction seen without tissue Doppler evidence of raise left atrial pressure. 2. Trace aortic, mitral and tricuspid regurgitation. 3. No significant pericardial effusion noted. 4. Inferior vena cava is poorly visualized. Electronically signed by : Balbir Resendiz MD 01/30/2022 20:30:42
--- NOTE | 2022-01-30 07:17 | NM_ITS ---
APPROVED REPORT Exam: Nuclear Stress Test Indication: Chest pain, SOB, CAD, HTN, DM, High cholesterol Patient Location: Outpatient Stress Tech: Amy Adhikari [place] Tech:Cassandra Ley, ARRT, RT (R)(N) Ht: 5 ft 9 in Wt: 212 lbs HR: 72 bpm BP: 148/85 mmHg BSA: 2.12 m2 TID: 1.20 BMI: 31.3 History: Chest pain, SOB, CAD, HTN, DM, High cholesterol Procedure: Patient exercised on Mayo protocol 8:00 minutes and sec, resting heart rate 72 bpm, resting blood pressure 148/85 mmHg, with exercise maximum heart rate achived was 144 bpm which is 91 % of the maximum predicted heart rate and blood pressure was 198/92 mmHg. Test was stopped due to SOB. Patient denied any complaint of chest pain. Patient has Good exercise capacity, achieved 10.1 METs of workload on treadmill, the blood pressure response to exercise was Adequate. Electrocardiogram Resting electrocardiogram shows sinus rhythm nonspecific ST-T changes, with exercise there is less than 1.[address] segment depression noted from the baseline EKG. The EKG portion of the exercise Myoview is nondiagnostic due to baseline abnormal EKG. Cardiac Stress and Resting SPECT Images: Cardiac Stress and Resting SPECT images were obtained using technetium 99m Myoview 30.5 mCi stress and 9.93 mCi at rest. Gated SPECT for analysis of segmental wall motion and calculation of the ejection fraction also done. Cardiac stress and resting SPECT images show uniform myocardial activity without segmental perfusion abnormality, computer derived ejection fraction 64% with no regional wall motion abnormality, right ventricle is normal size and contractility. Conclusion: 1. The EKG portion of the exercise Myoview is nondiagnostic due to baseline abnormal EKG, patient has good exercise capacity achieved 10.1 METs of workload on treadmill, the blood pressure response to exercise was adequate, there was no exercise-induced chest discomfort. 2. No scintigraphic evidence of reversible ischemia seen, compared to ejection fraction 64% with no regional wall motion abnormality, right ventricle is normal size and contractility. 3. Normal exercise Myoview study. Electronically signed by : Balbir Resendiz MD 01/30/2022 20:20:34
--- NOTE | 2022-01-30 09:19 | HMH.ITSHM ---
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 []LISINOPRIL ISOSORBIDE VITAMIN D3 BISOPROLOL ASA POTASSIUM OMEPRAZOLE CLOPIDOGREL CITALOPRAM CETIRIZINE ATORVASTATIN
--- NOTE | 2022-01-30 09:29 | CA_ITS ---
APPROVED REPORT Exam: Exercise Treadmill Technologist: Amy Lyman, Ht: 5 ft 9 in Wt: 220 lbs BSA: 2.15 m2 HR: 70 bpm BP: 135/80 mmHg Medical History Medications: Lisinopril,,,,, Omeprazole,,,,, Aspirin,,,,, Vitamin D3,,,,, Atorvastatin,,,,, Citalopram,,,,, CloPIdogrel,,,,, BisOPROLOL Fumarate,,,,, CetIRIZINE,,,,, Potassium,,,,, Isosorbide Monoitrate ER,,,,, Stress Test Details Test: Mayo HR Resting HR: 72 bpm Max Heart Rate (APMHR): 159.556802 bpm Max HR Achieved: 144 bpm Target HR (85% APMHR): 135.030030 bpm % of APMHR: 90.57 Recovery HR: 88 bpm BP Resting BP: 148/85 mmHg Max BP: 198/92 mmHg Recovery BP: 182.0/76.0 mmHg ECG Resting ECG: NSR, SNNTTW Abnormalities, PRWPA Clinical Reason for Termination: Leg Pain Dyspnea, Completed protocol Exercise duration: 08:00 min Highest Stage Achieved: III Exercise capacity: 10.1 METs Stress ECG Conclusion Max HR: 144 % of PM: 106 METs: 10.1 Test stopped due to: Hip/knee discomfort Symptoms: No CP Arrhythmias/Ectopy: None ST-T Changes: <1.5mm ST segment changes Conclusion: Negative stress. See Nuclear Imaging report. Test Summary RECOVERY 01:00 0.0 0.0 130 . . . Stop exercise at 08:00 REST . . . . . . . Standing REST 07:04 0.0 1.2 72 . 148/ 85 . . Stage 1 01:00 10.0 1.7 91 . . . . Stage 1 02:00 10.0 1.7 97 . . . . Stage 1 03:00 10.0 1.7 103 . 182/ 90 . . Stage 2 01:00 12.0 2.5 107 . . . . Stage 2 02:00 12.0 2.5 114 . . . . Stage 2 03:00 12.0 2.5 120 . 198/ 92 . . Stage 3 01:00 14.0 3.4 134 . . . . Stage 3 02:00 14.0 3.4 142 . . . Stop exercise at 08:00 RECOVERY 01:00 0.0 0.0 130 . . . . RECOVERY 02:00 0.0 0.0 105 . . . . RECOVERY 03:00 0.0 0.0 91 . 172/ 76 . . RECOVERY 04:00 0.0 0.0 86 . 172/ 76 . . RECOVERY 04:11 0.0 0.0 86 . 172/ 76 . . Electronically signed by : Balbir Resendiz MD 01/30/2022 20:17:50
== END ==
PROVIDERS: PCP Emergency Medicine; Visit Provider Nurse Practitioner
DX: I20.8 Other forms of angina pectoris (principal); I10 Essential (primary) hypertension; E78.5 Hyperlipidemia, unspecified
CPT/HCPCS: 78452; 93017; 93306; A9502

== ENCOUNTER → 2022-02-03 12:40 | Outpatient (CLI) | payer MEDICAID, SELFPAY ==
--- NOTE | 2022-02-03 12:45 | CA_ITS ---
FINAL REPORT CLINICAL HISTORY: ALDAIR, CAD, HTN, hyperlipidemia FINDINGS: An ultrasound of the carotid arteries was performed. Duplex Doppler evaluation with spectral analysis was performed. The peak systolic velocity of the right common carotid artery is 144 cm/s. The peak systolic velocity of the right internal carotid artery is 125 cm/s and end diastolic velocity 41 cm/s. A small amount of plaque is present. The right external carotid artery is patent. The right vertebral artery is patent with antegrade flow. The peak systolic velocity of the left common carotid artery is 138 cm/s. The peak systolic velocity of the left internal carotid artery is 98 cm/s and end diastolic velocity 31 cm/s. A small amount of plaque is present. The left external carotid artery is patent. The left vertebral artery is patent with antegrade flow. IMPRESSION: Less than 50% bilateral carotid stenoses. Bilateral patent vertebral arteries with antegrade flow. Reviewed, Interpreted and Dictated by Macario Duckworth MD Transcribed by Sanford Rangel Authenticated and [facility]
== END ==
PROVIDERS: PCP Emergency Medicine; Visit Provider Nurse Practitioner Family
DX: I65.23 Occlusion and stenosis of bilateral carotid arteries (principal); I25.118 Atherosclerotic heart disease of native coronary artery with other forms of angina pectoris; I10 Essential (primary) hypertension; E78.5 Hyperlipidemia, unspecified
CPT/HCPCS: 93880

== ENCOUNTER 2022-04-20 17:53 | Emergency (ER) | payer MEDICAID, SELFPAY ==
[2022-04-20 18:33] VITALS: BP 129/72; PULSE 63; RESP 18; TEMP 36.6; O2SAT 98; BMI 31.8
--- NOTE | 2022-04-20 18:34 | XR_ITS ---
PROCEDURE INFORMATION: Exam: XR Lumbosacral Spine Exam date and time: 04/20/2022 7:29 PM Age: 61 years old Clinical indication: Patient HX: Low back pain for 4 days. No known injury. ; Additional info: Pain. No injury TECHNIQUE: Imaging protocol: Radiologic exam of the lumbosacral spine. Views: 2 or 3 views. COMPARISON: HIPRTWO MR hip RT wo con 06/17/2018 1:47 PM FINDINGS: Bones/joints: The lumbar spine demonstrates mild degenerative changes at multiple levels. The facet joints demonstrate mild degenerative hypertrophy and sclerosis. There is no evidence of acute fracture. Soft tissues: Unremarkable. IMPRESSION: 1. The lumbar spine demonstrates mild degenerative changes at multiple levels. 2. No evidence of acute fracture.
[2022-04-20 18:41] LABS: Microscopic, Urine URINE MICROSCOPIC (MICROSCOPIC)
[2022-04-20 18:42] LABS: Appearance,Urine CLEAR (Clear); Bilirubin,Urine Negative (Negative); Blood, Urine Negative (Negative); Color,Urine YELLOW (Yellow); Glucose,Urine (UA) Negative (Negative); Ketones,Urine Negative (Negative); Leukocyte Esterase,Urine Negative (Negative); Nitrate,Urine Negative (Negative); Protein,Urine Negative (Negative); Specific Gravity, Urine 1.015 (1.005-1.030); Urobilinogen,Urine 0.2 EU/dl (0.2)
[2022-04-20 19:02] LABS: Squamous Epithelial Cell,Urine Occasional #/hpf (0-5)
--- NOTE | 2022-04-20 19:03 | PC.NURSE ---
pt sitting in chair, does not want to lay down,
--- NOTE | 2022-04-20 19:20 | HMH.EDBACK ---
Discharge Plan Disposition Patient Disposition: Home, Self-Care Condition: Good Prescriptions Prescriptions: New ketorolac 10 mg tablet 10 mg PO Q8H PRN (Reason: pain) Qty: 20 0RF methocarbamol 750 mg tablet 750 mg PO Q8H Qty: 90 0RF lidocaine [Lidoderm] 5 % adhesive patch,medicated 1 patch topical DAILY Qty: 15 0RF Rx Instructions: leave on most painful area for up to 12 hrs No Action aspirin [Adult Low Dose Aspirin] 81 mg tablet,delayed release (DR/EC) 81 mg PO DAILY cholecalciferol (vitamin D3) 1,000 unit capsule 4,000 unit PO DAILY bisoprolol fumarate 10 mg tablet 10 mg PO DAILY Qty: 30 5RF isosorbide mononitrate 30 mg tablet extended release 24 hr 30 mg PO DAILY Qty: 30 3RF cetirizine 10 mg tablet See Rx Instructions .ROUTE .COMPLEX Qty: 30 2RF Dose Instruction: take 1 tablet by mouth daily As Needed for allergy symptoms Rx Instructions: take 1 tablet by mouth daily As Needed for allergy symptoms lisinopril 10 mg tablet See Rx Instructions .ROUTE .COMPLEX Qty: 90 0RF Dose Instruction: Take 1 tablet by mouth daily needs appt Rx Instructions: Take 1 tablet by mouth daily needs appt atorvastatin 20 mg tablet See Rx Instructions .ROUTE .COMPLEX Qty: 90 0RF Dose Instruction: TAKE ONE TABLET BY MOUTH DAILY PT NEEDS APPT Rx Instructions: TAKE ONE TABLET BY MOUTH DAILY PT NEEDS APPT omeprazole 40 mg capsule,delayed release(DR/EC) See Rx Instructions .ROUTE .COMPLEX Qty: 90 0RF Dose Instruction: Take 1 capsule by mouth daily Rx Instructions: Take 1 capsule by mouth daily clopidogrel 75 mg tablet See Rx Instructions .ROUTE .COMPLEX Qty: 90 0RF Dose Instruction: Take 1 tablet by mouth daily needs an appt Rx Instructions: Take 1 tablet by mouth daily metformin 500 mg tablet extended release 24 hr See Rx Instructions .ROUTE .COMPLEX Qty: 30 2RF Dose Instruction: TAKE ONE TABLET BY MOUTH DAILY Rx Instructions: TAKE ONE TABLET BY MOUTH DAILY (DME) OneTouch Ultra Test Strip See Rx Instructions .Route Qty: 100 12RF Rx Instructions: As directed potassium chloride 10 mEq capsule, extended release See Rx Instructions .ROUTE .COMPLEX Qty: 60 2RF Dose Instruction: TAKE TWO CAPSULES BY MOUTH DAILY Rx Instructions: TAKE TWO CAPSULES BY MOUTH DAILY citalopram 20 mg tablet See Rx Instructions .ROUTE .COMPLEX Qty: 30 3RF Dose Instruction: Take 1 tablet by mouth DAILY pt needs apt Rx Instructions: Take 1 tablet by mouth DAILY pt needs apt Referrals Follow up/Referrals: Chip Falcon MD [Primary Care Provider] - See instructions Clinical Impressions Clinical Impression: Sciatica Instructions Patient Instructions: DI for Low Back Pain, DI for Back Pain With Sciatica, Ketorolac, Lidocaine Transdermal Patch, Methocarbamol Discharge ED Provider: David Maxwell Back Pain HPI General Chief Complaint: Back Pain/Injury Stated Complaint: LAST 4 DAYS W/ BACK PAIN Time Seen by Provider: 04/20/22 19:20 Mode of Arrival: Ambulatory Source of Information: Patient Limitations: No Limitations Description of Symptoms (Recalled from ER Triage Doc. by RN): pt to ed c/o lower back pain that radiates down his right leg. pt states this pain started x4 days ago. pt states the pain radiates all the way into his foot. pt denies burning with urination, blood in urine or injury/accident. History of Present Illness HPI Narrative: 61-year-old male, prior history of lower back pain and sciatica, presents with the same that started approximately 4 days ago. 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 He reports associated pain and numbness radiating down the right leg. He den
--- NOTE | 2022-04-20 19:22 | PC.NURSE ---
hand off report given to director global development RN's
[2022-04-20 20:07] VITALS: BP 130/72; PULSE 65; RESP 15; TEMP 36.8; O2SAT 97
== END 2022-04-20 20:13 | disposition home or self-care (01) ==
PROVIDERS: Emergency Provider Emergency Medicine; PCP Emergency Medicine
DX: M54.9 Dorsalgia, unspecified (principal); M54.41 Lumbago with sciatica, right side; Z79.82 Long term (current) use of aspirin; Z88.1 Allergy status to other antibiotic agents; E11.9 Type 2 diabetes mellitus without complications; I10 Essential (primary) hypertension; I25.10 Atherosclerotic heart disease of native coronary artery without angina pectoris; E78.5 Hyperlipidemia, unspecified; I65.29 Occlusion and stenosis of unspecified carotid artery
CPT/HCPCS: 72100; 81001; 96372; 99283

== ENCOUNTER → 2022-06-01 15:00 | Outpatient (CLI) | payer MEDICAID, SELFPAY ==
--- NOTE | 2022-06-01 15:00 | MR_ITS ---
FINAL REPORT CLINICAL HISTORY: arm and neck pain left arm pain , tingling, numbness x 4 months FINDINGS: Multi planar MR imaging was obtained of the cervical spine. There is abnormal decreased signal throughout the cervical discs. The vertebrae are of normal height. There is reversal the cervical lordosis. There is minimal spondylolisthesis of C4 on C5. The cervical cord demonstrates normal signal and configuration. C2-C3: There is no evidence of significant disc bulge or protrusion. There is no significant facet hypertrophy. C3-C4: There is endplate hypertrophy eccentric to the right. There is moderate to high-grade right neural foraminal narrowing. C4-C5: There is endplate hypertrophy eccentric to the left. There is asymmetric facet hypertrophy. There is high-grade left neural foraminal narrowing. C5-C6: There is moderate endplate hypertrophy. There is bilateral facet hypertrophy. There is high-grade bilateral neural foraminal narrowing. C6-C7: There is moderate endplate hypertrophy. There is bilateral facet hypertrophy. There is high-grade bilateral neural foraminal narrowing. C7-T1: There is moderate endplate hypertrophy. There is bilateral facet hypertrophy. There is high-grade bilateral neural foraminal narrowing. T1-T2: Posterolateral disc protrusions with high-grade bilateral neural foraminal narrowing. IMPRESSION: High-grade neural foraminal narrowing on the right at C3-C4, the left at C4-C5 and bilaterally at C5-C6, C6-C7, C7-T1 and T1-T2. Reviewed, Interpreted and Dictated by Macario Duckworth MD Transcribed by Sanford Rangel Authenticated and [facility]
== END ==
PROVIDERS: PCP Emergency Medicine; Visit Provider Orthopaedic Surgery
DX: M54.2 Cervicalgia (principal); M79.602 Pain in left arm
CPT/HCPCS: 72141; 76376

== ENCOUNTER → 2022-11-14 10:44 | Outpatient (CLI) | payer MEDICAID, SELFPAY ==
[2022-11-14 14:23] LABS: Basophils # 0.1 K/mm3 (0-0.2); Basophils % 1.2 % (0.1-2.0); Eosinophils # 0.1 K/mm3 (0.0-0.4); Eosinophils % 1.1 % (0.1-12.0); Hematocrit 41.3 % (42.0-52.0); Hemoglobin 13.9 g/dL (14.1-18.0); Lymphocytes # 1.8 K/mm3 (0.7-4.5); Lymphocytes % 29.4 % (10-50); Mean Corpuscular HGB Conc 33.6 g/dL (31.8-35.4); Mean Corpuscular Hemoglobin 31.1 pg (27.0-31.2); Mean Corpuscular Volume 92.7 fl (80-94); Mean Platelet Volume 7.9 fl (7.4-10.4); Monocytes # 0.5 K/mm3 (0.1-1.0); Monocytes % 7.2 % (1.7-9.3); Neutrophils # 3.8 K/mm3 (1.8-7.8); Neutrophils % 61.1 % (37.0-80.0); Platelet Count 326 K/mm3 (142-424); Red Blood Count 4.46 M/mm3 (4.60-6.20); Red Cell Distribution Width 14.2 % (11.5-17.5); White Blood Count 6.2 K/mm3 (4.8-10.8)
[2022-11-14 14:55] LABS: Alanine Aminotransferase 55 U/L (12-78); Albumin Level 4.4 g/dl (3.5-5.0); Albumin/Globulin Ratio 1.6 (1.1-1.8); Alkaline Phosphatase 124 U/L (38-126); Anion Gap 12.7 mEq/L (5-15); Aspartate Amino Transferase 72 U/L (17-59); Bilirubin,Total 0.4 mg/dl (0.2-1.3); Blood Urea Nitrogen 10 mg/dl (9-20); Calcium 8.9 mg/dl (8.4-10.2); Carbon Dioxide 26 mmol/L (22.0-30.0); Chloride 101 mmol/L (98-107); Chol/HDL Ratio 4.8 (1-3.5); Cholesterol 176 mg/dl (140-200); Estimated Glomerular Filt Rate 98 ml/min (>60); GFR (African American) 119 ML/MIN (>60); Globulin 2.7 g/dL (1.3-3.2); Glucose 84 mg/dl (74-100); HDL Cholesterol 37 mg/dl (40-60); Potassium 4.7 mmoL/L (3.5-5.1); Sodium 135 mmol/L (136-145); Total Protein,Serum 7.1 g/dl (6.3-8.2); Triglycerides 323 mg/dl (30-150); VLDL Cholesterol 65 mg/dL (0-40)
[2022-11-14 15:06] LABS: Direct LDL Cholesterol 95.22 mg/dL (100-129)
[2022-11-14 15:13] LABS: Free T4 (Free Thyroxine) 0.75 ng/dl (0.78-2.19)
[2022-11-14 16:28] LABS: Hemoglobin A1C 6.4 % (4.0-6.0)
== END ==
PROVIDERS: PCP Emergency Medicine; Visit Provider Emergency Medicine
DX: E11.9 Type 2 diabetes mellitus without complications (principal); E66.9 Obesity, unspecified; Z68.33 Body mass index [BMI] 33.0-33.9, adult; Z79.84 Long term (current) use of oral hypoglycemic drugs; Z79.899 Other long term (current) drug therapy
CPT/HCPCS: 80053; 80061; 83036; 84439; 84443; 85025

== ENCOUNTER → 2022-11-28 12:40 | Outpatient (CLI) | payer MEDICAID, SELFPAY ==
--- NOTE | 2022-11-28 12:40 | MR_ITS ---
FINAL REPORT TECHNIQUE: Multiplanar MR without gadolinium enhancement CLINICAL HISTORY: back pain lower back pain unable to walk with bilateral leg numbness x 4 months FINDINGS: Sagittal images show normal vertebral height. Alignment is normal. There is epidural lipomatosis most pronounced in the posterior canal from L2-3 through the sacral spinal canal. T12-L1: Unremarkable L1-2: Mild annular disc bulge. L2-3: Mild annular disc bulge and facet arthropathy. Borderline canal stenosis and mild bilateral neural foraminal narrowing. L3-4: Moderate annular disc bulge and moderate facet arthropathy. Ligamentum flavum hypertrophy. Small right paracentral disc protrusion with severe central canal stenosis and moderate bilateral neural foraminal narrowing. L4-5: Moderate annular disc bulge and moderate facet arthropathy. Ligamentum flavum hypertrophy. Small right paracentral disc protrusion with moderate central canal stenosis and moderate bilateral neural foraminal narrowing. L5-S1: Mild annular disc bulge. Severe facet arthropathy. Mild bilateral neural foraminal narrowing. IMPRESSION: Multilevel degenerative disc disease as detailed above. Reviewed, Interpreted and Dictated by Tanner Bell MD Transcribed by Susan Duffy Authenticated and [facility]
== END ==
LOC: RAD 12:40
PROVIDERS: PCP Emergency Medicine; Visit Provider Emergency Medicine
DX: M54.50 Low back pain, unspecified (principal); M54.16 Radiculopathy, lumbar region
CPT/HCPCS: 72148; 76376

== ENCOUNTER 2023-01-13 09:32 | Emergency (ER) | payer MEDICAID, SELFPAY ==
[2023-01-13 09:33] VITALS: BP 126/81; PULSE 56; RESP 16; TEMP 36.6; O2SAT 97; BMI 34.0
[2023-01-13 09:37] VITALS: BP 126/81; PULSE 54; O2SAT 99
--- NOTE | 2023-01-13 09:48 | CT_ITS ---
PROCEDURE INFORMATION: Exam: CT Lumbar Spine Without Contrast Exam date and time: 01/13/2023 10:06 AM Age: 62 years old Clinical indication: Injury or trauma; Fall; Blunt trauma (contusions or hematomas); Additional info: Fall, lower c, t, L, sacral pain TECHNIQUE: Imaging protocol: Computed tomography of the lumbar spine without contrast. Radiation optimization: All CT scans at this facility use at least one of these dose optimization techniques: automated exposure control; mA and/or kV adjustment per patient size (includes targeted exams where dose is matched to clinical indication); or iterative reconstruction. REPORTING DATA: Count of CT and Cardiac NM exams in prior 12 months: This patient has received 0 known CTs and 0 known cardiac nuclear medicine studies in the 12 months prior to the current study. COMPARISON: MR LUMBAR SPINE WO CON 11/28/2022 1:01 PM FINDINGS: Bones/joints: No acute fracture. Normal alignment. No significant disc bulge or herniation. No severe spinal canal stenosis. No significant neural foraminal narrowing. Soft tissues: Unremarkable. Aortoiliac atherosclerosis. IMPRESSION: No acute findings.
--- NOTE | 2023-01-13 09:48 | CT_ITS ---
PROCEDURE INFORMATION: Exam: CT Pelvis Without Contrast; Skeletal Exam date and time: 01/13/2023 10:09 AM Age: 62 years old Clinical indication: Injury or trauma; Fall; Blunt trauma (contusions or hematomas); Bilateral; Pelvic region; Additional info: Fall, lower c, t, L, sacral pain TECHNIQUE: Imaging protocol: Computed tomography of the pelvis without contrast. Exam focused on the skeleton. Radiation optimization: All CT scans at this facility use at least one of these dose optimization techniques: automated exposure control; mA and/or kV adjustment per patient size (includes targeted exams where dose is matched to clinical indication); or iterative reconstruction. REPORTING DATA: Count of CT and Cardiac NM exams in prior 12 months: This patient has received 0 known CTs and 0 known cardiac nuclear medicine studies in the 12 months prior to the current study. COMPARISON: CR HIPCMRT XR hip RT 2-3V w/pelvis 06/05/2018 11:31 AM FINDINGS: Vasculature: Mild aortoiliac atherosclerosis. Bones/joints: No acute fracture. [id number] bilateral femoroacetabular degenerative joint disease. Soft tissues: Small, fat containing, right direct and indirect inguinal hernias. IMPRESSION: 1. Small, fat containing, right direct and indirect inguinal hernias. 2. No acute fracture. [id number] bilateral femoroacetabular degenerative joint disease.
--- NOTE | 2023-01-13 09:48 | CT_ITS ---
PROCEDURE INFORMATION: Exam: CT Cervical Spine Without Contrast Exam date and time: 01/13/2023 10:01 AM Age: 62 years old Clinical indication: Injury or trauma; Fall; Blunt trauma; Additional info: Fall, lower c, t, L, sacral pain TECHNIQUE: Imaging protocol: Computed tomography of the cervical spine without contrast. Radiation optimization: All CT scans at this facility use at least one of these dose optimization techniques: automated exposure control; mA and/or kV adjustment per patient size (includes targeted exams where dose is matched to clinical indication); or iterative reconstruction. REPORTING DATA: Count of CT and Cardiac NM exams in prior 12 months: This patient has received 0 known CTs and 0 known cardiac nuclear medicine studies in the 12 months prior to the current study. COMPARISON: MR CERVICAL SPINE WO CON 06/01/2022 3:25 PM FINDINGS: Bones/joints: Moderate to severe degenerative disc disease of the cervical spine, most notable at C5-C6 and C6-C7. There is straightening of the cervical spine alignment. No acute fracture. Lungs: Lung apices are normal. Soft tissues: Unremarkable. IMPRESSION: Moderate to severe degenerative disc disease of the cervical spine, most notable at C5-C6 and C6-C7. There is straightening of the cervical spine alignment. No acute fracture.
--- NOTE | 2023-01-13 09:48 | CT_ITS ---
PROCEDURE INFORMATION: Exam: CT Thoracic Spine Without Contrast Exam date and time: 01/13/2023 10:03 AM Age: 62 years old Clinical indication: Injury or trauma; Fall; Blunt trauma (contusions or hematomas); Additional info: Fall, lower c, t, L, sacral pain TECHNIQUE: Imaging protocol: Computed tomography of the thoracic spine without contrast. Radiation optimization: All CT scans at this facility use at least one of these dose optimization techniques: automated exposure control; mA and/or kV adjustment per patient size (includes targeted exams where dose is matched to clinical indication); or iterative reconstruction. REPORTING DATA: Count of CT and Cardiac NM exams in prior 12 months: This patient has received 0 known CTs and 0 known cardiac nuclear medicine studies in the 12 months prior to the current study. COMPARISON: CT CERVICAL SPINE WO CON 01/13/2023 10:01 AM FINDINGS: Bones/joints: No acute fracture. Normal alignment. No significant disc bulge or herniation. No severe spinal canal stenosis. No significant neural foraminal narrowing. Soft tissues: Unremarkable. IMPRESSION: Unremarkable CT Spine.
--- NOTE | 2023-01-13 09:48 | HMH.EDGENADL ---
Discharge Plan Disposition Patient Disposition: Home, Self-Care Condition: Good Prescriptions Prescriptions: New methocarbamol 750 mg tablet 1,500 mg PO TID Qty: 90 0RF No Action aspirin [Adult Low Dose Aspirin] 81 mg tablet,delayed release (DR/EC) 81 mg PO DAILY cholecalciferol (vitamin D3) 1,000 unit capsule 4,000 unit PO DAILY diclofenac sodium 1 % gel 2 g topical QID Qty: 100 0RF Rx Instructions: apply to single elbow, wrist or hand; for hand includes palm/fingers/back of hand oxycodone-acetaminophen [Percocet] 10-325 mg tablet 1 tab PO Q6H Qty: 84 0RF (DME) OneTouch Ultra Test Strip See Rx Instructions .Route Qty: 100 12RF Rx Instructions: As directed cetirizine 10 mg tablet See Rx Instructions .ROUTE .COMPLEX Qty: 30 2RF Dose Instruction: take 1 tablet by mouth daily As Needed for allergy symptoms Rx Instructions: take 1 tablet by mouth daily As Needed for allergy symptoms lisinopril 10 mg tablet See Rx Instructions .ROUTE .COMPLEX Qty: 90 0RF Dose Instruction: TAKE ONE TABLET BY MOUTH DAILY Rx Instructions: TAKE ONE TABLET BY MOUTH DAILY omeprazole 40 mg capsule,delayed release(DR/EC) See Rx Instructions .ROUTE .COMPLEX Qty: 90 0RF Dose Instruction: TAKE ONE CAPSULE BY MOUTH DAILY Rx Instructions: TAKE ONE CAPSULE BY MOUTH DAILY clopidogrel 75 mg tablet See Rx Instructions .ROUTE .COMPLEX Qty: 90 0RF Dose Instruction: TAKE ONE TABLET BY MOUTH DAILY Rx Instructions: TAKE ONE TABLET BY MOUTH DAILY atorvastatin 20 mg tablet See Rx Instructions .ROUTE .COMPLEX Qty: 90 0RF Dose Instruction: take 1 tablet by mouth at bedtime nightly Rx Instructions: take 1 tablet by mouth at bedtime nightly bisoprolol fumarate 10 mg tablet 10 mg PO DAILY Qty: 90 3RF citalopram 20 mg tablet See Rx Instructions .ROUTE .COMPLEX Qty: 30 3RF Dose Instruction: Take 1 tablet by mouth DAILY pt needs apt Rx Instructions: Take 1 tablet by mouth DAILY pt needs apt potassium chloride 10 mEq capsule, extended release See Rx Instructions .ROUTE .COMPLEX Qty: 60 2RF Dose Instruction: TAKE TWO CAPSULES BY MOUTH DAILY Rx Instructions: TAKE TWO CAPSULES BY MOUTH DAILY Referrals Follow up/Referrals: Chip Falcon MD [Primary Care Provider] - See instructions Activity Restrictions/Add. Instructions Additional Instructions/Restrictions: Take Tylenol 1000 mg every 6 hours (4 times daily) and ibuprofen 400 mg every 6 hours (4 times daily) as needed with food and water to prevent GI upset and kidney damage. Take Robaxin up to 3 times daily (you can take 750 mg or 1500 mg). Do not drive or operate heavy machinery, or do anything that would be dangerous if he fell asleep until you know what effect medication has on you. If you have any other concerning signs or symptoms, return to the ER for further evaluation. Clinical Impressions Clinical Impression: Acute back pain Qualifiers: Back pain laterality: midline Sciatica presence: with sciatica Sciatica laterality: bilateral sciatica Discharge ED Provider: Orlin Ramirez General Adult HPI General Chief complaint: PAIN Stated complaint: [id number], pain in back/legs Time Seen by Provider: 01/13/23 09:35 Mode of Arrival: Wheelchair Source of Information: Patient Limitations: No Limitations Description of Symptoms (Recalled from ER Triage Doc. by RN): 62 yo M presents to ED with c/o fall yesterday and back pain. pt states that he fell off a ladder yesterday, hitting his truck, hurting his back. pt states that when he woke up this am he was having trouble ambulating due to pain. History of Present Illness HPI narrative: This is a 62-year-old male with history of hypertension, hyperlipidemia, CAD status post FL and stenting on aspirin and Plavix, chronic neck and back pain with bilateral sciatica presenting with
--- NOTE | 2023-01-13 10:11 | PC.NURSE ---
pt to radiology
[2023-01-13 10:19] VITALS: BP 113/90; PULSE 54; O2SAT 98
[2023-01-13 10:30] VITALS: BP 111/67; PULSE 53; O2SAT 97
[2023-01-13 11:00] VITALS: BP 113/66; PULSE 52; O2SAT 98
--- NOTE | 2023-01-13 11:14 | PC.NURSE ---
family at BS
[2023-01-13 11:22] VITALS: BP 113/66; PULSE 52; RESP 16; TEMP 36.6; O2SAT 98
== END 2023-01-13 11:23 | disposition home or self-care (01) ==
PROVIDERS: Emergency Provider Emergency Medicine; PCP Emergency Medicine
DX: M54.59 Other low back pain (principal); M54.30 Sciatica, unspecified side; I65.29 Occlusion and stenosis of unspecified carotid artery; I10 Essential (primary) hypertension; E78.5 Hyperlipidemia, unspecified; Z79.01 Long term (current) use of anticoagulants; Z87.891 Personal history of nicotine dependence; W11.XXXA Fall on and from ladder, initial encounter
CPT/HCPCS: 72125; 72128; 72131; 72192; 96372; 99284; 99285

== ENCOUNTER 2023-07-24 07:18 | Outpatient (CLI) | payer MEDICAID, SELFPAY ==
[2023-07-24 20:31] LABS: Amphetamine/Metha Screen,Urine Negative ng/ml (<1000); Barbiturates Screen,Urine Negative ng/ml (<200); Benzodiazepines Screen,Urine Negative ng/ml (<200); Cannabinoid Screen,Urine Negative ng/ml (<50); Cocaine Screen,Urine Negative ng/ml (<300); Methadone Screen,Urine Negative ng/ml (<300); Opiate Screen,Urine Negative ng/ml (<300); Phencyclidine Screen,Urine Negative ng/ml (<25)
== END 2023-07-24 23:59 ==
LOC: LAB.DROPOF 07-25 07:18
PROVIDERS: PCP Physician Assistant; Visit Provider Physician Assistant
DX: Z79.899 Other long term (current) drug therapy (principal)
CPT/HCPCS: 80307

== ENCOUNTER 2023-08-02 07:39 | Outpatient (CLI) | payer MEDICAID, SELFPAY ==
--- NOTE | 2023-08-02 07:42 | US_ITS ---
FINAL REPORT CLINICAL HISTORY: RUQ pain COMPARISON: None FINDINGS: Sonographic images of the right upper quadrant were obtained. The pancreas is partially obscured. There is fatty infiltration of the liver present. There is a questionable gallstone present, without convincing posterior acoustical shadowing. There is no evidence of biliary ductal dilatation.The common duct measures 5.5 mm. Limited images of the right kidney are unremarkable. IMPRESSION: Fatty infiltration of the liver. Questionable gallstone without convincing posterior acoustical shadowing. Follow-up ultrasound might be helpful for further evaluation. Reviewed, Interpreted and Dictated by Robert Willis III, MD Transcribed by Codie Mayo Authenticated and [facility]
== END 2023-08-02 23:59 ==
LOC: RAD 07:40
PROVIDERS: PCP Physician Assistant; Visit Provider Physician Assistant
DX: R10.11 Right upper quadrant pain (principal)
CPT/HCPCS: 76705

== ENCOUNTER 2023-08-08 13:35 | Emergency (ER) | payer MEDICAID, SELFPAY ==
[2023-08-08] VITALS (7 sets, daily range): BP systolic 107–147; BP diastolic 68–83; PULSE 52–61; RESP 11–19; TEMP 36.6; O2SAT 95–99; BMI 34.0
--- NOTE | 2023-08-08 13:28 | ECG_ITS ---
APPROVED REPORT Exam: Resting ECG HR:60 bpm ECG Measurements Heart Rate 60 AXES NV 175 P 34 QRSd 86 QRS 89 QT 385 T 58 QTc 387 Conclusion SINUS RHYTHM NORMAL ECG UNCONFIRMED REPORT Electronically signed by : Cale Diana MD 08/09/2023 21:26:45
--- NOTE | 2023-08-08 13:53 | XR_ITS ---
FINAL REPORT CLINICAL HISTORY: mid sternum chest pain ,hx of stents COMPARISON: 01/21/2022 FINDINGS: A single portable view of the chest was obtained. The heart size and pulmonary vascularity are within normal limits. The mediastinum is within normal limits. No acute pulmonary abnormality is identified. The bony thorax is intact. IMPRESSION: No active cardiopulmonary disease. Reviewed, Interpreted and Dictated by Robert Willis III, MD Transcribed by Myra Kauffman Authenticated and [facility]
--- NOTE | 2023-08-08 13:55 | [facility].EDCP ---
Discharge Plan Disposition Patient Disposition: Home, Self-Care Prescriptions Prescriptions: No Action aspirin [Adult Low Dose Aspirin] 81 mg tablet,delayed release (DR/EC) 81 mg PO DAILY cholecalciferol (vitamin D3) 1,000 unit capsule 4,000 unit PO DAILY diclofenac sodium 1 % gel 2 g topical QID Qty: 100 0RF Rx Instructions: apply to single elbow, wrist or hand; for hand includes palm/fingers/back of hand (DME) OneTouch Ultra Test Strip See Rx Instructions .Route Qty: 100 12RF Rx Instructions: As directed (DME) blood-glucose meter [Blood Glucose Monitoring] Kit See Rx Instructions .Route Qty: 1 0RF Rx Instructions: As directed oxycodone 5 mg tablet 5 mg PO Q8H PRN (Reason: pain) Qty: 30 0RF bisoprolol fumarate 10 mg tablet 10 mg PO DAILY Qty: 90 3RF cetirizine 10 mg tablet See Rx Instructions .ROUTE .COMPLEX Qty: 90 3RF Dose Instruction: take 1 tablet by mouth daily As Needed for allergy symptoms Rx Instructions: take 1 tablet by mouth daily As Needed for allergy symptoms citalopram 20 mg tablet See Rx Instructions .ROUTE .COMPLEX Qty: 30 3RF Dose Instruction: Take 1 tablet by mouth DAILY pt needs apt Rx Instructions: Take 1 tablet by mouth DAILY pt needs apt clopidogrel 75 mg tablet See Rx Instructions .ROUTE .COMPLEX Qty: 90 0RF Dose Instruction: TAKE ONE TABLET BY MOUTH DAILY Rx Instructions: TAKE ONE TABLET BY MOUTH DAILY lisinopril 10 mg tablet See Rx Instructions .ROUTE .COMPLEX Qty: 90 0RF Dose Instruction: TAKE ONE TABLET BY MOUTH DAILY Rx Instructions: TAKE ONE TABLET BY MOUTH DAILY omeprazole 40 mg capsule,delayed release(DR/EC) See Rx Instructions .ROUTE .COMPLEX Qty: 90 0RF Dose Instruction: TAKE ONE CAPSULE BY MOUTH DAILY Rx Instructions: TAKE ONE CAPSULE BY MOUTH DAILY atorvastatin 20 mg tablet See Rx Instructions .ROUTE .COMPLEX Qty: 90 0RF Dose Instruction: take 1 tablet by mouth at bedtime nightly Rx Instructions: take 1 tablet by mouth at bedtime nightly methocarbamol 750 mg tablet 1,500 mg PO TID Qty: 90 0RF Referrals Follow up/Referrals: Rachel Coles PA [Primary Care Provider] - See instructions Clinical Impressions Clinical Impression: Chest pain Discharge ED Provider: Orlin Ramirez <Girish Feliciano MD - Last Filed: 08/08/23 15:18> General Chief Complaint: Chest Pain Stated Complaint: Chest Pain Time Seen by Provider: 08/08/23 13:40 History of Present Illness HPI narrative: Patient is a 62-year-old male with past medical history of hypertension, hyperlipidemia, coronary artery disease status post stenting who presents emergency department for evaluation of chest pain. Onset was acute, substernal, 1 hour prior to arrival, stabbing, radiating to his left jaw. No other acute complaints at this time. Related Data Home Medications Medication Instructions Recorded Confirmed aspirin 81 mg tablet,delayed 81 mg PO DAILY Heart disease 11/19/17 07/24/23 release (Adult Low Dose Aspirin) cholecalciferol (vitamin D3) 25 4,000 unit PO DAILY Supplement 11/19/17 07/24/23 mcg (1,000 unit) capsule Previous Rx's Medication Instructions Recorded diclofenac sodium 1 % topical gel 2 g topical QID #100 grams 04/26/22 bisoprolol fumarate 10 mg tablet 10 mg PO DAILY #90 tabs 11/13/22 blood sugar diagnostic (OneTouch #100 ea 11/14/22 Ultra Test strips) methocarbamol 750 mg tablet 1,500 mg PO TID #90 tabs 01/13/23 cetirizine 10 mg tablet See Rx Instructions .Route 01/19/23 .COMPLEX #90 tabs citalopram 20 mg tablet See Rx Instructions .Route 04/04/23 .COMPLEX #30 tabs atorvastatin 20 mg tablet See Rx Instructions .Route 05/23/23 .COMPLEX #90 tabs clopidogrel 75 mg tablet See Rx Instructions .Route 05/23/23 .COMPLEX #90 tabs lisinopril 10 mg tablet See Rx Instructions .Route 05/23/23 .COMPLEX #90 tabs omeprazole 40 mg capsule,delayed See Rx Instructions .Route 05/23/23 release .COMPLEX #90 caps blood-glucose meter (Blood Glucose #1 ea 07/24/23 Monitoring kit) oxycodone 5 mg tablet 5 mg PO Q8H PRN pain #30 tabs 07/25/23 Allergies Allergy/AdvReac Type Severity Reaction Status Date / Time erythromycin base Allergy Mild UPSET Verified 07/24/23 13:49 [ERYTHROMYCIN BASE] STOMACH Macrolide Antibiotics Allergy Mild UPSET Verified 07/24/23 13:49 [MACROLIDE ANTIBIOTICS] STOMACH PFSH <Girish Feliciano MD - Last Filed: 08/08/23 15:18> PFS Disclaimer: The information contained in this section may have been updated after the patient was seen, as this information can be updated by other users. Medical History Carotid artery stenosis Social History Smoking Status: Former smoker alcohol intake: never substance use type: denies use current occupational status: employed Travel in the last 8 weeks: Inside the [place] household members: spouse housing: house <Girish Feliciano MD - Last Filed: 08/08/23 15:18> ROS Obtained: Yes Systems reviewed as appropriate & no additional complaints except as documented Physical Exam <Girish Feliciano MD - Last Filed: 08/08/23 15:18> General General appearance: alert and in no apparent distress Head Head exam: atraumatic and normocephalic Eye Eye exam: Present PERRL and EOMI ENT ENT exam: Present mucous membranes moist Neck Neck exam: Present normal inspection Chest Chest inspection: Present normal inspection and symmetric chest wall rise Respiratory Respiratory exam: Present normal lung sounds bilaterally; Absent respiratory distress Cardiovascular Cardiovascular exam: Present regular rate and normal rhythm Abdominal Exam Abdominal exam: Present soft; Absent tenderness Extremities Exam Extremities exam: Present normal inspection Neurological Exam Neurological exam: Present alert Psychiatric Psychiatric exam: Present normal affect Skin Skin exam: Present warm and dry HEART Score <Girish Feliciano MD - Last Filed: 08/08/23 15:18> HEART Score HEART Score assessment performed?: Yes History (anamnesis): Highly suspicious ECG: Normal Age: 45-65 years Risk factors: Atherosclerosis history Troponin: </= normal limit HEART Score: 5 <Orlin Ramirez MD - Last Filed: 08/08/23 17:42> HEART Score HEART Score: 5 Critical Care <Girish Feliciano MD - Last Filed: 08/08/23 15:18> Critical Care Time Critical Care Time: No Medical Decision Making <Girish Feliciano MD - Last Filed: 08/08/23 15:18> [place] Inquiry Pt receiving controlled substance: No Vital Signs Vital Signs: 08/08/23 13:35 08/08/23 14:31 08/08/23 15:19 Temperature 97.9 F Temperature Source Oral Pulse Rate 59 L 53 L Pulse Rate [Left Radial] 61 Respiratory Rate 19 12 Blood Pressure 133/83 120/75 Blood Pressure [Right Arm] 147/81 H Blood Pressure Mean 99 Blood Pressure Mean [Right Arm] 103 02 Sat by Pulse Oximetry 98 97 95 Oxygen Delivery Method Room Air Room Air 08/08/23 15:30 08/08/23 16:00 08/08/23 16:30 Temperature Temperature Source Pulse Rate 53 L 56 L Pulse Rate [Left Radial] Respiratory Rate 11 L 13 Blood Pressure 116/68 107/72 L 113/68 Blood Pressure [Right Arm] Blood Pressure Mean 79 88 Blood Pressure Mean [Right Arm] 02 Sat by Pulse Oximetry 95 96 Oxygen Delivery Method Room Air Lab Data Labs: Lab Results 08/08/23 13:32: WBC 6.8, RBC 4.52 L, Hgb 14.0 L, Hct 40.4 L, MCV 89.2, MCH 30.9, MCHC 34.7, RDW 13.8, Plt Count 257, MPV 7.9, Neut % (Auto) 60.1, Lymph % (Auto) 32.1, [place] % (Auto) 5.7, Eos % (Auto) 1.1, Baso % (Auto) 1.1, Neut # (Auto) 4.1, Lymph # (Auto) 2.2, [place] # (Auto) 0.4, Eos # (Auto) 0.1, Baso # (Auto) 0.1, Sodium 134 L, Potassium 4.2, Chloride 101, Carbon Dioxide 25, Anion Gap 12.2, BUN 12, Creatinine 0.90, Estimated Creat Clear 113, Estimated GFR 86, Est GFR ( Amer) 103, Glucose 158 H, Calcium 8.8, Total Bilirubin 0.4, AST 44, ALT 40, Alkaline Phosphatase 125, Troponin I < 0.01, Total Protein 7.0, Albumin 4.1, Globulin 2.9, Albumin/Globulin Ratio 1.4 08/08/23 14:52: SARS-CoV-2 (PCR) Not detected, Influenza A Untype (PCR) Not detected, Influenza Type B (PCR) Not detected 08/08/23 16:39: Troponin I 0.03 08/08/23 13:32 08/08/23 13:32 Response Orders (Tests/Meds): ED MEDICATIONS Generic Name Dose Route Start Last Admin Trade Name Freq PRN Reason Stop Dose Admin Nitroglycerin 0.4 mg 08/08/23 13:54 Nitroglycerin 0.4mg Sl Tablet SL 09/07/23 13:53 [id number] PRN Chest Pain Discontinued Medications Generic Name Dose Route Start Last Admin Trade Name Freq PRN Reason Stop Dose Admin Aspirin 324 mg 08/08/23 13:54 08/08/23 14:20 Aspirin 81mg Chewable Tablet PO 08/08/23 13:55 Not Given ONCE ONE Morphine Sulfate 4 mg 08/08/23 13:54 08/08/23 14:36 Morphine 4mg/Ml Syringe IV 08/08/23 13:55 4 mg ONCE ONE Administration Ondansetron HCl 4 mg 08/08/23 14:19 08/08/23 14:36 Ondansetron 4mg/2ml Vial IV 08/08/23 14:20 4 mg ONCE ONE Administration ORDERS Category Date Time Status CXR --portable [XR chest portable] Stat Exams 08/08/23 13:53 Completed CBC w/Auto Diff [Complete Blood Count Auto Diff] Stat Lab 08/08/23 13:32 Completed CMP [Comprehensive Metabolic Panel] Stat Lab 08/08/23 13:32 Completed Rapid PCR Covid and Flu A/B Stat Lab 08/08/23 14:52 Completed Trop I [Troponin I] Stat Lab 08/08/23 13:32 Completed Troponin I Q3H Lab 08/08/23 16:39 Completed Troponin I Q3H Lab 08/08/23 20:00 Ordered ECG Data Tracing #1: ECG Narrative: Independently interpreted by me, rate is 60, rhythm is regular, axis is borderline rightward deviated, no ST elevation in anatomical contiguous leads, QTc 307. MDM Narrative Medical Decision Narrative: In summary patient is a 62-year-old male with past medical history described above presents emergency department for evaluation of chest pain. Patient is hemodynamically stable nontoxic-appearing upon arrival, differential diagnosis includes ACS, noncardiac chest pain, among others. Workup will be conducted with hematologic labs, chest x-ray, EKG, serial troponins, viral swab. Initial inventions include aspirin, morphine, nitroglycerin. Initial workup reviewed by me, hematologic labs are nonactionable, no troponin below detectable limit. Initial EKG nonischemic. Repeat clinical assessment and serial troponin pending at time of transition of care to the oncoming physician, Dr. Ramirez. <Orlin Ramirez MD - Last Filed: 08/08/23 17:42> Vital Signs Vital Signs: 08/08/23 13:35 08/08/23 14:31 08/08/23 15:19 Temperature 97.9 F Temperature Source Oral Pulse Rate 59 L 53 L Pulse Rate [Left Radial] 61 Respiratory Rate 19 12 Blood Pressure 133/83 120/75 Blood Pressure [Right Arm] 147/81 H Blood Pressure Mean 99 Blood Pressure Mean [Right Arm] 103 02 Sat by Pulse Oximetry 98 97 95 Oxygen Delivery Method Room Air Room Air 08/08/23 15:30 08/08/23 16:00 08/08/23 16:30 Temperature Temperature Source Pulse Rate 53 L 56 L Pulse Rate [Left Radial] Respiratory Rate 11 L 13 Blood Pressure 116/68 107/72 L 113/68 Blood Pressure [Right Arm] Blood Pressure Mean 79 88 Blood Pressure Mean [Right Arm] 02 Sat by Pulse Oximetry 95 96 Oxygen Delivery Method Room Air Lab Data Labs: Lab Results 08/08/23 13:32: WBC 6.8, RBC 4.52 L, Hgb 14.0 L, Hct 40.4 L, MCV 89.2, MCH 30.9, MCHC 34.7, RDW 13.8, Plt Count 257, MPV 7.9, Neut % (Auto) 60.1, Lymph % (Auto) 32.1, [place] % (Auto) 5.7, Eos % (Auto) 1.1, Baso % (Auto) 1.1, Neut # (Auto) 4.1, Lymph # (Auto) 2.2, [place] # (Auto) 0.4, Eos # (Auto) 0.1, Baso # (Auto) 0.1, Sodium 134 L, Potassium 4.2, Chloride 101, Carbon Dioxide 25, Anion Gap 12.2, BUN 12, Creatinine 0.90, Estimated Creat Clear 113, Estimated GFR 86, Est GFR ( Amer) 103, Glucose 158 H, Calcium 8.8, Total Bilirubin 0.4, AST 44, ALT 40, Alkaline Phosphatase 125, Troponin I < 0.01, Total Protein 7.0, Albumin 4.1, Globulin 2.9, Albumin/Globulin Ratio 1.4 08/08/23 14:52: SARS-CoV-2 (PCR) Not detected, Influenza A Untype (PCR) Not detected, Influenza Type B (PCR) Not detected 08/08/23 16:39: Troponin I 0.03 Response Orders (Tests/Meds): ED MEDICATIONS Generic Name Dose Route Start Last Admin Trade Name Freq PRN Reason Stop Dose Admin Nitroglycerin 0.4 mg 08/08/23 13:54 Nitroglycerin 0.4mg Sl Tablet SL 09/07/23 13:53 [id number] PRN Chest Pain Discontinued Medications Generic Name Dose Route Start Last Admin Trade Name Freq PRN Reason Stop Dose Admin Aspirin 324 mg 08/08/23 13:54 08/08/23 14:20 Aspirin 81mg Chewable Tablet PO 08/08/23 13:55 Not Given ONCE ONE Morphine Sulfate 4 mg 08/08/23 13:54 08/08/23 14:36 Morphine 4mg/Ml Syringe IV 08/08/23 13:55 4 mg ONCE ONE Administration Ondansetron HCl 4 mg 08/08/23 14:19 08/08/23 14:36 Ondansetron 4mg/2ml Vial IV 08/08/23 14:20 4 mg ONCE ONE Administration ORDERS Category Date Time Status CXR --portable [XR chest portable] Stat Exams 08/08/23 13:53 Completed CBC w/Auto Diff [Complete Blood Count Auto Diff] Stat Lab 08/08/23 13:32 Completed CMP [Comprehensive Metabolic Panel] Stat Lab 08/08/23 13:32 Completed Rapid PCR Covid and Flu A/B Stat Lab 08/08/23 14:52 Completed Trop I [Troponin I] Stat Lab 08/08/23 13:32 Completed Troponin I Q3H Lab 08/08/23 16:39 Completed Troponin I Q3H Lab 08/08/23 20:00 Ordered MDM Narrative Medical Decision Narrative: In summary patient is a 62-year-old male with past medical history described above presents emergency department for evaluation of chest pain. Patient is hemodynamically stable nontoxic-appearing upon arrival, differential diagnosis includes ACS, noncardiac chest pain, among others. Workup will be conducted with hematologic labs, chest x-ray, EKG, serial troponins, viral swab. Initial inventions include aspirin, morphine, nitroglycerin. Initial workup reviewed by me, hematologic labs are nonactionable, no troponin below detectable limit. Initial EKG nonischemic. Repeat clinical assessment and serial troponin pending at time of transition of care to the oncoming physician, Dr. Ramirez. James: I assume primary responsibility for this patient after signout from previous physician. On my evaluation, patient very well-appearing, asking for p.o. intake. Was given clear liquids. Independently interpreted workup, nonactionable hematologic labs. Chest x-ray within normal limits. Patient was placed in observation. Patient was placed in observation beginning at 3 PM in order to rule out evolving GA via serial troponins and determine need for admission versus home-going. The patient was provided monitoring while awaiting results. Independent interpretation of results demonstrated negative delta troponin. On reevaluation, patient feeling well. At this time, I feel patient is appropriate for discharge. Total observation time 2.5 hours.
[2023-08-08 14:09] LABS: Chloride 101 mmol/L (98-107); Potassium 4.2 mmoL/L (3.5-5.1); Sodium 134 mmol/L (136-145)
[2023-08-08 14:10] LABS: Basophils # 0.1 K/mm3 (0-0.2); Basophils % 1.1 % (0.1-2.0); Eosinophils # 0.1 K/mm3 (0.0-0.4); Eosinophils % 1.1 % (0.1-12.0); Hematocrit 40.4 % (42.0-52.0); Lymphocytes # 2.2 K/mm3 (0.7-4.5); Lymphocytes % 32.1 % (10-50); Mean Corpuscular HGB Conc 34.7 g/dL (31.8-35.4); Mean Corpuscular Hemoglobin 30.9 pg (27.0-31.2); Mean Corpuscular Volume 89.2 fl (80-94); Mean Platelet Volume 7.9 fl (7.4-10.4); Monocytes # 0.4 K/mm3 (0.1-1.0); Monocytes % 5.7 % (1.7-9.3); Neutrophils # 4.1 K/mm3 (1.8-7.8); Neutrophils % 60.1 % (37.0-80.0); Platelet Count 257 K/mm3 (142-424); Red Blood Count 4.52 M/mm3 (4.60-6.20); Red Cell Distribution Width 13.8 % (11.5-17.5); White Blood Count 6.8 K/mm3 (4.8-10.8)
[2023-08-08 14:12] LABS: Alanine Aminotransferase 40 U/L (12-78); Albumin Level 4.1 g/dl (3.5-5.0); Albumin/Globulin Ratio 1.4 (1.1-1.8); Alkaline Phosphatase 125 U/L (38-126); Anion Gap 12.2 mEq/L (5-15); Aspartate Amino Transferase 44 U/L (17-59); Bilirubin,Total 0.4 mg/dl (0.2-1.3); Blood Urea Nitrogen 12 mg/dl (9-20); Calcium 8.8 mg/dl (8.4-10.2); Carbon Dioxide 25 mmol/L (22.0-30.0); Creatinine Clearance Estimated 113 mL/min (50-200); Estimated Glomerular Filt Rate 86 ml/min (>60); GFR (African American) 103 ML/MIN (>60); Globulin 2.9 g/dL (1.3-3.2); Glucose 158 mg/dl (74-100)
[2023-08-08 14:28] LABS: Troponin I < 0.01 ng/ml (0.00-0.034)
[2023-08-08] MEDS: ONDANSETRON 4MG/2ML VIAL 4 MG IV (14:36)
[2023-08-08] MEDS: MORPHINE 4MG/ML SYRINGE 4 MG IV (14:36)
[2023-08-08 15:03] LABS: Coronavirus 19, PCR Not Detected (NotDetected); Influenza A, PCR Not Detected (NotDetected); Influenza B, PCR Not Detected (NotDetected)
--- NOTE | 2023-08-08 15:40 | PC.NURSE ---
PT WAS GIVEN A BAG OF CHIPS AND LEMON MANZANITA SODA
[2023-08-08 17:19] LABS: Troponin I 0.03 ng/ml (0.00-0.034)
--- NOTE | 2023-08-08 17:51 | PC.NURSE ---
PT GIVEN D/C INSTRUCTIONS TO RETURN TO ER IF PAIN RETURNS FOLLOW UP WITH DR CURRY TOMORROW
== END 2023-08-08 17:58 | disposition home or self-care (01) ==
PROVIDERS: Emergency Medicine; Emergency Provider Emergency Medicine; PCP Physician Assistant
DX: R07.9 Chest pain, unspecified (principal); R68.84 Jaw pain; I10 Essential (primary) hypertension; E78.5 Hyperlipidemia, unspecified; I25.10 Atherosclerotic heart disease of native coronary artery without angina pectoris; I65.29 Occlusion and stenosis of unspecified carotid artery; Z87.891 Personal history of nicotine dependence
CPT/HCPCS: 71045; 80053; 84484; 85025; 87636; 93005; 96374; 96375; 99285; J2405

== ENCOUNTER 2023-08-22 07:41 | Outpatient (CLI) | payer MEDICAID, SELFPAY ==
--- NOTE | 2023-08-22 07:41 | US_ITS ---
FINAL REPORT TECHNIQUE: Ultrasound images of the abdomen were obtained. CLINICAL HISTORY: Possible gallstones, fatty liver FINDINGS: The pancreas is obscured by bowel gas. There is fatty infiltration of the liver. No definite gallstones are identified. The common duct is normal. The right kidney measures 11.6 cm in length and is normal in echogenicity without hydronephrosis. The left kidney measures 11.4 cm in length and is normal in echogenicity without hydronephrosis. The spleen is unremarkable. The aorta is normal in caliber. The vena cava is unremarkable. IMPRESSION: Fatty liver. Reviewed, Interpreted and Dictated by Tanner Bell MD Transcribed by Sarah Coulter Authenticated and [facility]
== END 2023-08-22 23:59 ==
LOC: RAD 07:41
PROVIDERS: PCP Physician Assistant; Visit Provider Physician Assistant
DX: K76.0 Fatty (change of) liver, not elsewhere classified (principal)
CPT/HCPCS: 76700

== ENCOUNTER 2023-09-05 10:06 | Outpatient (CLI) | payer MEDICAID, SELFPAY ==
--- NOTE | 2023-09-05 10:06 | NM_ITS ---
FINAL REPORT CLINICAL HISTORY: Upper right quadrant pain COMPARISON: None FINDINGS: Sequential anterior projection images of the abdomen were obtained after the intravenous injection of 8.07 mCi technetium 99m Choletec. There is normal uptake of radiotracer by the liver. The bile ducts and bowel are visualized by 10 minutes. Gallbladder activity is seen by 20 minutes. After 1 hour, 2 ?g of CCK was injected intravenously for calculation of gallbladder ejection fraction. The gallbladder ejection fraction is 80%, which is within normal limits. IMPRESSION: No evidence of cystic duct or bile duct obstruction. Normal gallbladder ejection fraction of 80%. Reviewed, Interpreted and Dictated by Robert Willis III, MD Transcribed by Myra Kauffman Authenticated and [facility]
[2023-09-05] MEDS: ISOTOPE CHOLETECH;1 DOSE (UP TO 15 MCI) IV (13:18)
[2023-09-05] MEDS: SINCALIDE 2 MCG in 0.9 % SODIUM CHLORIDE 50 ML 100 MCG IV (13:18)
[2023-09-05] MEDS: SODIUM CHLORIDE 0.9% 10ML SYR (RAD ONLY) 10 ML IV (13:18)
== END 2023-09-05 23:59 ==
LOC: RAD 10:06
PROVIDERS: PCP Physician Assistant; Visit Provider Physician Assistant
DX: R10.11 Right upper quadrant pain (principal)
CPT/HCPCS: 78227; A9537; J2805

== ENCOUNTER 2024-02-21 14:14 | Emergency (ER) | payer MEDICAID, SELFPAY ==
[2024-02-21 14:16] VITALS: BP 157/70; PULSE 63; RESP 18; TEMP 36.7; O2SAT 98; BMI 32.1
--- NOTE | 2024-02-21 14:23 | XR_ITS ---
FINAL REPORT CLINICAL HISTORY: pop, pain, ambulkatory FINDINGS: Right hip Three views were obtained. There is no acute fracture or dislocation. There is mild joint space narrowing. The femoral head demonstrates a normal smooth contour. There are mild hypertrophic changes at the acetabular margin. No soft tissue abnormality is identified. IMPRESSION: Mild osteoarthritis. Reviewed, Interpreted and Dictated by Macario Duckworth MD Transcribed by Sarah Coulter Authenticated and [facility]
[2024-02-21 14:30] VITALS: BP 154/133; PULSE 59; O2SAT 97
--- NOTE | 2024-02-21 14:33 | PC.NURSE ---
DR ROBBINS AT BEDSIDE
--- NOTE | 2024-02-21 14:40 | PC.NURSE ---
PT TO XR
[2024-02-21] MEDS: DEXAMETHASONE 4MG TABLET 10 MG PO (14:59)
[2024-02-21 15:00] VITALS: BP 139/85; PULSE 56; O2SAT 96
[2024-02-21] MEDS: KETOROLAC 30MG/ML VIAL 15 MG IM (15:00)
--- NOTE | 2024-02-21 15:23 | ED_ITS ---
Discharge Plan Disposition Patient Disposition: Home, Self-Care Prescriptions Prescriptions: New dexamethasone 6 mg tablet 6 mg PO DAILY Qty: 5 0RF No Action aspirin [Adult Low Dose Aspirin] 81 mg tablet,delayed release (DR/EC) 81 mg PO DAILY diclofenac sodium 1 % gel 2 g topical QID Qty: 100 0RF Rx Instructions: apply to single elbow, wrist or hand; for hand includes palm/fingers/back of hand (DME) OneTouch Ultra Test Strip See Rx Instructions .Route Qty: 100 12RF Rx Instructions: As directed (DME) blood-glucose meter [Blood Glucose Monitoring] Kit See Rx Instructions .Route Qty: 1 0RF Rx Instructions: As directed Debrox 6.5 % drops 5 drp otic (ear) BID 4 Days Qty: 15 0RF (DME) blood-glucose meter [OneTouch Ultra2 Meter] [facility] See Rx Instructions .ROUTE .MEDSUPPLY Qty: 1 Patient Comments: As directed Rx Instructions: As directed methocarbamol 750 mg tablet 1,500 mg PO TID Qty: 90 0RF bisoprolol fumarate 10 mg tablet See Rx Instructions .ROUTE .COMPLEX Qty: 90 3RF Dose Instruction: TAKE ONE TABLET BY MOUTH DAILY Rx Instructions: TAKE ONE TABLET BY MOUTH DAILY omeprazole 40 mg capsule,delayed release(DR/EC) See Rx Instructions .ROUTE .COMPLEX Qty: 90 3RF Dose Instruction: TAKE ONE CAPSULE BY MOUTH DAILY Rx Instructions: TAKE ONE CAPSULE BY MOUTH DAILY lisinopril 10 mg tablet See Rx Instructions .ROUTE .COMPLEX Qty: 90 3RF Dose Instruction: TAKE ONE TABLET BY MOUTH DAILY Rx Instructions: TAKE ONE TABLET BY MOUTH DAILY clopidogrel 75 mg tablet See Rx Instructions .ROUTE .COMPLEX Qty: 90 3RF Dose Instruction: TAKE ONE TABLET BY MOUTH DAILY Rx Instructions: TAKE ONE TABLET BY MOUTH DAILY atorvastatin 20 mg tablet See Rx Instructions .ROUTE .COMPLEX Qty: 90 3RF Dose Instruction: take 1 tablet by mouth at bedtime nightly Rx Instructions: take 1 tablet by mouth at bedtime nightly citalopram 20 mg tablet See Rx Instructions .ROUTE .COMPLEX Qty: 90 3RF Dose Instruction: Take 1 tablet by mouth DAILY pt needs apt Rx Instructions: Take 1 tablet by mouth DAILY pt needs apt cetirizine 10 mg tablet See Rx Instructions .ROUTE .COMPLEX Qty: 90 3RF Dose Instruction: take 1 tablet by mouth daily As Needed for allergy symptoms Rx Instructions: take 1 tablet by mouth daily As Needed for allergy symptoms Referrals Follow up/Referrals: Norma Stephenson APRN [Primary Care Provider] - See instructions Edvin Govea DO [Staff Physician] - See instructions Activity Restrictions/Add. Instructions Additional Instructions/Restrictions: Call your family doctor to establish care for this visit to the emergency department and schedule follow-up within 48 hours to ensure improvement. If you have any worsening of your condition or any other concerning signs or symptoms, return to the emergency department or your primary care doctor for further evaluation. Dexamethasone daily each morning for the next 5 days. Follow-up with Dr. Govea as needed for hip injections Clinical Impressions Clinical Impression: Acute pain of right hip Print Language Print Language: Fijian Discharge ED Provider: Patricia Whyte General Adult HPI <Orlin Ramirez MD - Last Filed: 02/22/24 07:59> General Chief complaint: PAIN Stated complaint: Pain in R hip. heard a pop Time Seen by Provider: 02/21/24 14:22 Mode of Arrival: Ambulatory Source of Information: Patient Limitations: No Limitations Description of Symptoms (Recalled from ER Triage Doc. by RN): Patient reports right hip pain for 3.5 months now. States this morning while trying to get out of the car he heard a pop and now it hasn't stopped hurting. Reports pain that radiates all the way down to the top of his foot. History of Present Illness HPI narrative: Please note that above description of symptoms, in this electronic medical record under categorization of recalled from ER triage doctor by RN are reflective of an initial nursing assessment, however, is not reflective of my fu ll history and physical exam that was personally taken and clarified. Consequentially, this preceding description of symptoms, which may include the patient's categorized chief complaint in the EMR, do not reflect my personal clinical impression, and the ultimate description of history of present illness and patient stated complaints should be deferred to this section of the note. Unless stated otherwise or congruent with this section of the note, additional signs, symptoms, or incongruence should be interpreted as inaccurate with my clinical impression. Related Data Home Medications ?Medication ?Instructions ?Recorded ?Confirmed aspirin 81 mg tablet,delayed 81 mg PO DAILY Heart disease 11/19/17 01/11/24 release (Adult Low Dose Aspirin) blood-glucose meter (Yeboluch #1 ea 01/11/24 01/11/24 Ultra2 Meter) Previous Rx's ?Medication ?Instructions ?Recorded diclofenac sodium 1 % topical gel 2 g topical QID #100 grams 04/26/22 blood sugar diagnostic (OneTouch #100 ea 11/14/22 Ultra Test strips) blood-glucose meter (Blood Glucose #1 ea 07/24/23 Monitoring kit) methocarbamol 750 mg tablet 1,500 mg (2 x 750 mg) PO TID #90 09/07/23 tabs carbamide peroxide 6.5 % ear drops 5 drp otic (ear) BID 4 days #15 mL 09/20/23 (Debrox) bisoprolol fumarate 10 mg tablet See Rx Instructions .Route 11/14/23 .COMPLEX #90 tabs atorvastatin 20 mg tablet See Rx Instructions .Route 12/07/23 .COMPLEX #90 tabs clopidogrel 75 mg tablet See Rx Instructions .Route 12/07/23 .COMPLEX #90 tabs lisinopril 10 mg tablet See Rx Instructions .Route 12/07/23 .COMPLEX #90 tabs omeprazole 40 mg capsule,delayed See Rx Instructions .Route 12/07/23 release .COMPLEX #90 caps citalopram 20 mg tablet See Rx Instructions .Route 01/03/24 .COMPLEX #90 tabs cetirizine 10 mg tablet See Rx Instructions .Route 01/21/24 .COMPLEX #90 tabs dexamethasone 6 mg tablet 6 mg PO DAILY #5 tabs 02/21/24 Allergies Allergy/AdvReac Type Severity Reaction Status Date / Time erythromycin base Allergy Mild UPSET Verified 01/11/24 10:02 [ERYTHROMYCIN BASE] STOMACH Macrolide Antibiotics Allergy Mild UPSET Verified 01/11/24 10:02 [MACROLIDE ANTIBIOTICS] STOMACH PFS <Orlin Ramirez MD - Last Filed: 02/22/24 07:59> [facility] Disclaimer: The information contained in this section may have been updated after the patie nt was seen, as this information can be updated by other users. Medical History Carotid artery stenosis Social History Smoking Status: Never smoker alcohol intake: never substance use type: denies use current occupational status: employed Travel in the last 8 weeks: Inside the [place] household members: spouse housing: house <Orlin Ramirez MD - Last Filed: 02/22/24 07:59> ROS Obtained: Yes All systems reviewed & no additional complaints except as documented Physical Exam <Orlin Ramirez MD - Last Filed: 02/22/24 07:59> General General appearance: alert Head Head exam: atraumatic and normocephalic Eye Eye exam: Present normal appearance, PERRL and EOMI Neck Neck exam: Present normal inspection, full ROM and trachea midline Respiratory Respiratory exam: Absent respiratory distress, wheezes, stridor, accessory muscle use or prolonged expiratory phase Cardiovascular Cardiovascular exam: Present other (Pulses equal symmetric in upper and lower extremities) Abdominal Exam Abdominal exam: Present soft; Absent distention, tenderness or pulsatile mass Extremities Exam Extremities exam: Absent edema Neurological Exam Neurological exam: Present alert, oriented X3 and CN II-XII intact; Absent motor sensory deficit Skin Skin exam: Present warm and dry; Absent diaphoresis or erythema Medical Decision Making <Orlin Ramirez MD - Last Filed: 02/22/24 07:59> Medical Records Medical records reviewed: Yes I reviewed the patient's medical records. [place] Inquiry Pt receiving controlled substance: No [place] was queried for this patient: No Vital Signs: 02/21/24 14:16 02/21/24 14:30 02/21/24 15:00 Temperature 98.0 F Temperature Source Oral Pulse Rate 59 L 56 L Pulse Rate [Radial] 63 Respiratory Rate 18 Blood Pressure 154/133 H 139/85 Blood Pressure [Right Arm] 157/70 H Blood Pressure Mean 138 103 Blood Pressure Mean [Right Arm] 99 Blood Pressure Source Blood Pressure Source [Right Arm] Automatic Cuff Blood Pressure Position Blood Pressure Position [Right Arm] Sitting 02 Sat by Pulse Oximetry 98 97 96 Oxygen Delivery Method Room Air 02/21/24 15:36 Temperature 98.0 F Temperature Source Oral Pulse Rate 55 L Pulse Rate [Radial] Respiratory Rate 16 Blood Pressure 148/75 H Blood Pressure [Right Arm] Blood Pressure Mean Blood Pressure Mean [Right Arm] Blood Pressure Source Automatic Cuff Blood Pressure Source [Right Arm] Blood Pressure Position Sitting Blood Pressure Position [Right Arm] 02 Sat by Pulse Oximetry Oxygen Delivery Method Room Air Orders (Tests/Meds): ED MEDICATIONS Discontinued Medications Generic Name Dose Route Start Last Admin Trade Name Freq PRN Reason Stop Dose Admin Dexamethasone 10 mg 02/21/24 14:23 02/21/24 14:59 Dexamethasone 4mg Tablet PO 02/21/24 14:24 10 mg ONCE ONE Administration Ketorolac Tromethamine 15 mg 02/21/24 14:34 02/21/24 15:00 Ketorolac 30mg/Ml Vial IM 02/21/24 14:35 15 mg ONCE ONE Administration Methocarbamol 1,500 mg 02/21/24 14:23 02/21/24 14:51 Methocarbamol 500mg Tablet PO 02/21/24 14:24 Not Given ONCE ONE ORDERS Category Date Time Status Hip XR right minimum 2 views [XR hip RT 2-3V w/pelvis] Exams 02/21/24 14:23 Completed Stat Medical Decision Narrative: 63-year-old male history of osteoarthritis right hip and chronic back pain presenting with right hip pain. Patient states he was getting in the car couple hours prior to this visit, felt a pop. Had immediate pain. Able to ambulate, no other trauma. No neurologic deficits. Patient states pain is moderate in intensity, worse when bearing weight, and inguinal fold most. No other concerning complaints. History was obtained via conversation with patient. On arrival, patient hemodynamically stable, alert, oriented x4, appropriate, GCS 15, moving all extremities spontaneously, pupils equal and reactive to light. Full physical exam performed and significant for ambulatory male who is in no acute distress, pain with active and passive range of motion right hip. Neurovascular intact, no outward signs of injury or deformity. Not shortened or rotated. Differential includes osteoarthritis, soft tissue injury, fracture, sprain, strain, degenerative joint disease, among others. Patient was given Decadron. X-rays to be obtained. X-rays independently interpreted and without acute bony abnormality of the right hip, chronic changes. See radiology read for further interpretation. On reevaluation, patient still ambulatory, feels comfortable following up with his orthopedist who previously did injections in his hip. I feel this is appropriate. Given patient presentation, workup, history, this most likely represents acute on chronic pain in the setting of osteoarthritis of the right hip. Downstairs Maid disclaimer Much of this encounter note is an electronic supervisor mail carriers spoken language to printed text. Electronic supervisor mail carriers of the spoken language may permit errors. Although I have reviewed the note, some errors may still exist. <Patricia Whyte, DO - Last Filed: 02/21/24 22:34> Vital Signs: 02/21/24 14:16 02/21/24 14:30 02/21/24 15:00 Temperature 98.0 F Temperature Source Oral Pulse Rate 59 L 56 L Pulse Rate [Radial] 63 Respiratory Rate 18 Blood Pressure 154/133 H 139/85 Blood Pressure [Right Arm] 157/70 H Blood Pressure Mean 138 103 Blood Pressure Mean [Right Arm] 99 Blood Pressure Source Blood Pressure Source [Right Arm] Automatic Cuff Blood Pressure Position Blood Pressure Position [Right Arm] Sitting 02 Sat by Pulse Oximetry 98 97 96 Oxygen Delivery Method Room Air 02/21/24 15:36 Temperature 98.0 F Temperature Source Oral Pulse Rate 55 L Pulse Rate [Radial] Respiratory Rate 16 Blood Pressure 148/75 H Blood Pressure [Right Arm] Blood Pressure Mean Blood Pressure Mean [Right Arm] Blood Pressure Source Automatic Cuff Blood Pressure Source [Right Arm] Blood Pressure Position Sitting Blood Pressure Position [Right Arm] 02 Sat by Pulse Oximetry Oxygen Delivery Method Room Air Orders (Tests/Meds): ED MEDICATIONS Discontinued Medications Generic Name Dose Route Start Last Admin Trade Name Augie PRN Reason Stop Dose Admin Dexamethasone 10 mg 02/21/24 14:23 02/21/24 14:59 Dexamethasone 4mg Tablet PO 02/21/24 14:24 10 mg ONCE ONE Administration Ketorolac Tromethamine 15 mg 02/21/24 14:34 02/21/24 15:00 Ketorolac 30mg/Ml Vial IM 02/21/24 14:35 15 mg ONCE ONE Administration Methocarbamol 1,500 mg 02/21/24 14:23 02/21/24 14:51 Methocarbamol 500mg Tablet PO 02/21/24 14:24 Not Given ONCE ONE ORDERS Category Date Time Status Hip XR right minimum 2 views [XR hip RT 2-3V w/pelvis] Exams 02/21/24 14:23 Completed Stat Medical Decision Narrative: [history+ROS]. [It should be noted that patient has , which is currently not at goal and complicates care.] History was obtained via conversation with []. On arrival, patient hemodynamically stable, alert, [oriented x4, ][appropriate, ]GCS [15], moving all extremities spontaneously, pupils equal and reactive to light. Full physical exam performed and significant for [Other relevant findings/NIHSS]. Differential includes []. Patient placed on continuous cardiac monitoring and continuous pulse ox with initial blood pressure [], heart rate [], saturation []. [Independent interpretation of EKG shows] []. Patient was given [] for symptomatic management[ and correction of underlying abnormalities]. Workup independently interpreted and significant for []. On independent interpretation of imaging, []. See radiology read for full review of final results. [Nexus/Namibian CT head/heart/[id number]/Wells/PERC/Age adjusted/YEARS/MELD]. [] was considered, but deemed unnecessary due to []. On reevaluation, [additional tests/treatment]. [Consultants] [obs] Given patient presentation, workup, history, this most likely represents []. Less likely []. [SDH] Downstairs Maid disclaimer Much of this encounter note is an electronic supervisor mail carriers spoken language to printed text. Electronic supervisor mail carriers of the spoken language may permit errors. Although I have reviewed the note, some errors may still exist. Critical Care <Orlin Ramirez MD - Last Filed: 02/22/24 07:59> Critical Care Time Critical Care Time: No
[2024-02-21 15:36] VITALS: BP 148/75; PULSE 55; RESP 16; TEMP 36.7; O2SAT 96
== END 2024-02-21 15:37 | disposition home or self-care (01) ==
PROVIDERS: Emergency Provider Emergency Medicine; PCP Family Medicine
DX: M25.551 Pain in right hip (principal)
CPT/HCPCS: 73502; 96372; 99283; J1885; J8540

== ENCOUNTER 2024-03-18 12:58 | Outpatient (CLI) | payer MEDICAID, SELFPAY ==
--- OUTSIDE RECORDS SUMMARY | 2024-03-18 13:01 | XMS_ITS ---
Care Plan - [facility], [facility] Created on: March 18, 2024 Aguilar Mario .0 : 1960 Sex: Male Author Organization [facility], [facility] Address [address] [place] [address] Phone Care Team Providers Care Job Press Feeder Name Role Phone Travis Govea MD Unavailable [phone]
--- OUTSIDE RECORDS SUMMARY | 2024-03-18 13:01 | XMS_ITS ---
Author Organization [facility] Address [address] [place] [address] Phone Care Team Providers Care Opener Tender Name Role Phone Jeferson ROBERTS, Travis Hoyos Unavailable [phone] Plan of Treatment No Plan of Treatment Recorded Assessments Includes: Assessments for all patient encounters No Assessments Recorded Medical Equipment - Implanted Devices Includes: Current and historical Devices No Medical Equipment Recorded Medications Administered Includes: Administered Medications in patient's chart No Administered Medications Recorded Results Includes: Results from 03/18/2023 through 03/18/2024 No Results Recorded For Specified Dates History of Present Illness History of Present Illness not supported for this document type No History of Present Illness Recorded Social History No Social History Recorded - Smoking Status Unknown Medical History Includes: Medical History in patient's chart No Medical History Recorded Family History Includes: Family History in patient's chart No Family History Recorded Review of Systems Review of Systems not supported for this document type No Review of Systems Recorded Mental Status No Mental Status Recorded Functional Status No Functional Status Recorded Physical Exam Physical Exam not supported for this document type No Physical Exam Recorded Insurance Includes: Active Insurance Policies Plan Name Member ID Group # Subscriber Relationship Effect lui Dates 1 - [employer] [id number] Mario wood Clinical Notes Includes: Signed Clinical Notes starting from 07/06/2022 No Clinical Notes Recorded
== END 2024-03-18 23:59 | disposition home or self-care (01) ==
LOC: PREOP 12:59
PROVIDERS: PCP Family Medicine; Visit Provider Orthopaedic Surgery
DX: R69 Illness, unspecified (principal)

== ENCOUNTER 2024-03-19 11:21 | Day surgery (SDC) | payer MEDICAID, SELFPAY ==
--- OUTSIDE RECORDS SUMMARY | 2024-03-19 11:24 | XMS_ITS ---
Author Organization [facility] Address [address] [place] [address] Phone Care Team Providers Care Community Service Manager Name Role Phone Jeferson ROBERTS, Travis Hoyos Unavailable [phone] Plan of Treatment No Plan of Treatment Recorded Assessments Includes: Assessments for all patient encounters No Assessments Recorded Medical Equipment - Implanted Devices Includes: Current and historical Devices No Medical Equipment Recorded Medications Administered Includes: Administered Medications in patient's chart No Administered Medications Recorded Results Includes: Results from 03/19/2023 through 03/19/2024 No Results Recorded For Specified Dates History [...] Effect lui Dates 1 - [employer] MEDICA[employer] [id number] Mario wood Clinical Notes Includes: Signed Clinical Notes starting from 07/06/2022 No Clinical Notes Recorded
--- OUTSIDE RECORDS SUMMARY | 2024-03-19 11:24 | XMS_ITS ---
Care Plan - [facility], [facility] Created on: March 19, 2024 Aguilar Mario .0 : 1960 Sex: Male Author Organization [facility], [facility] Address [address] [place] [address] Phone Care Team Providers Care Emergency Services Director Name Role Phone Travis Govea MD Unavailable [phone]
[2024-03-19 11:40] LABS: Basophils # 0.1 K/mm3 (0-0.2); Basophils % 1.4 % (0.1-2.0); Eosinophils # 0.1 K/mm3 (0.0-0.4); Eosinophils % 1.9 % (0.1-12.0); Hemoglobin 13.8 g/dL (14.1-18.0); Lymphocytes # 1.8 K/mm3 (0.7-4.5); Lymphocytes % 33.8 % (10-50); Mean Corpuscular HGB Conc 32.8 g/dL (31.8-35.4); Mean Corpuscular Hemoglobin 30.4 pg (27.0-31.2); Mean Corpuscular Volume 92.7 fl (80-94); Mean Platelet Volume 7.3 fl (7.4-10.4); Monocytes # 0.4 K/mm3 (0.1-1.0); Monocytes % 7.6 % (1.7-9.3); Neutrophils % 55.3 % (37.0-80.0); Platelet Count 308 K/mm3 (142-424); Red Blood Count 4.53 M/mm3 (4.60-6.20); Red Cell Distribution Width 14.1 % (11.5-17.5); White Blood Count 5.5 K/mm3 (4.8-10.8)
[2024-03-19 11:53] VITALS: BMI 31.3
[2024-03-19 11:58] VITALS: BP 117/69; PULSE 59; RESP 18; TEMP 36.4; O2SAT 97
[2024-03-19 12:11] LABS: Albumin Level 4.1 g/dl (3.5-5.0); Chloride 104 mmol/L (98-107); Potassium 4.3 mmoL/L (3.5-5.1); Sodium 137 mmol/L (136-145)
[2024-03-19 12:13] LABS: Blood Urea Nitrogen 5 mg/dl (9-20); Creatinine Clearance Estimated 103 mL/min (50-200); Estimated Glomerular Filt Rate 85 ml/min (>60); GFR (African American) 103 ML/MIN (>60)
[2024-03-19 12:14] LABS: Alanine Aminotransferase 26 U/L (12-78); Alkaline Phosphatase 131 U/L (38-126); Anion Gap 8.3 mEq/L (5-15); Aspartate Amino Transferase 31 U/L (17-59); Bilirubin,Direct 0.3 mg/dl (0.0-0.4); Bilirubin,Indirect 0.2 mg/dL (0.0-0.9); Bilirubin,Total 0.5 mg/dl (0.2-1.3); Bilirubin,Unconjugated 0.2 mg/dL (0.0-1.1); Calcium 9.1 mg/dl (8.4-10.2); Carbon Dioxide 29 mmol/L (22.0-30.0); Cholesterol 159 mg/dl (140-200); Glucose 107 mg/dl (74-100); Magnesium 1.9 mg/dl (1.6-2.3); Total Protein,Serum 6.8 g/dl (6.3-8.2); Triglycerides 304 mg/dl (30-150); VLDL Cholesterol 61 mg/dL (0-40)
[2024-03-19 12:15] LABS: Chol/HDL Ratio 4.5 (1-3.5); HDL Cholesterol 35 mg/dl (40-60)
[2024-03-19] MEDS: LACTATED RINGERS 1000ML 1,000 ML 25 ML IV (12:15)
[2024-03-19 12:31] LABS: Free T4 (Free Thyroxine) 0.67 ng/dl (0.78-2.19)
[2024-03-19 12:45] LABS: Thyroid Stimulating Hormone 2.69 uIU/mL (0.465-4.68)
--- NOTE | 2024-03-19 12:50 | P.PNANES_ITS ---
[facility] Disclaimer: The information contained in this section may have been updated after the patient was seen, as this information can be updated by other users. Medical History Kidney stone COPD (chronic obstructive pulmonary disease) Asthma Osteoarthritis History of gastroesophageal reflux (GERD) History of chest pain History of heart attack Hyperlipidemia Hypertension Carotid artery stenosis Surgical History Hx of right heart catheterization Family History Father Lymphoma Social History Smoking Status: Former smoker alcohol intake: never substance use type: denies use current occupational status: employed Travel in the last 8 weeks: None household members: spouse housing: house [facility] Anesthesia Checklist Patient Identification Patient Identification: Arm Band and Verbal (Name & ) Structural Data Admitted From: Home Planned Operative Procedure/s: Hip injection Consent for Planned Operative Procedure(s) Verified: Yes Verified Documents: Surgical Consent and History and Physical NPO Status Verified Time NPO: 00:00 Chart Verification Results Verified: CBC and BMP Additional verifications Anesthesia Reactions: No Hx Blood Transfusions: No Blood Transfusion Reaction: No Airway Assessment Mallampati Score:: Class III C-Spine Mobility Assessed: Yes TMJ Mobility Assessed: Yes Dentition: Dentures-poor fitting Neurological Assessment Level of Consciousness: Awake Hx Seizures: No Numbness or tingling in extremities: No Anesthesia Plan Anesthesia Risk discussed: Yes Anesthesia Plan: Verified ASA Class: III Anesthesia Type: MAC
[2024-03-19] MEDS: IOPAMIDOL-370 (76%);100ML BOTTLE IV (13:00)
[2024-03-19] MEDS: CEFAZOLIN SODIUM 2 GM in 0.9 % SODIUM CHLORIDE 100 ML IV (13:05)
[2024-03-19] MEDS: TRIAMCINOLONE ACET 40MG/ML VIAL 80 MG (13:10)
[2024-03-19] MEDS: LIDOCAINE 1% 20ML MDV 20 ML (13:12)
--- NOTE | 2024-03-19 13:14 | EXP.OP.NOTE ---
Date of procedure: 03/19/24 Pre-op Diagnosis:: Right hip OA Post-op Diagnosis:: Same Procedure performed:: Right hip injection with arthrogram x-ray guidance for needle placement Surgeon:: Edvin Govea DO PHARMACEUTICAL PROCESS ENGINEER:: Abdiaziz Taylor Anesthesia: MAC Estimated blood loss (mL): 0 Operative findings:: See dictation Operative note:: Patient identified preoperatively. Right hip marked with yes my initials. Transferred operative suite placed upon the radiolucent bed. Right hip was then prepped and draped normal sterile fashion. Once prepped and draped final operative timeout performed to identify proper patient procedure and extremity. Everyone involved the case agrees no counter indication beginning. X-ray was brought into identify the right hip joint x-ray was used for proper needle placement and trajectory into the hip joint once the 18-gauge needle was placed into the hip joint contrast was utilized to confirm needle placement within the hip capsule once confirmed the hip was injected with 80 mg Kenalog 3 cc 1% lidocaine. Needle was removed Band-Aids placed. Patient tolerated procedure well without difficulty. Condition: stable Disposition: PACU Complications:: None
[2024-03-19 13:17] VITALS: BP 96/63; PULSE 60; RESP 15; TEMP 36.2; O2SAT 93
--- NOTE | 2024-03-19 13:24 | XR_ITS ---
FINAL REPORT CLINICAL HISTORY: rt HIP INJECTION. 3ml of contrast 1.78 mgy 0.05 fluoro time FINDINGS: FLUOROSCOPY LESS THAN 1 HOUR HISTORY: Fluoroscopy guidance. FINDINGS: Fluoroscopic guidance was provided for right hip injection. A single spot film was obtained. A total of 0.05 minutes of fluoroscopy time were used. DAP: 1.78 mGy IMPRESSION: As above. Reviewed, Interpreted and Dictated by Macario Duckworth MD Transcribed by Myra Kauffman Authenticated and . [facility]
[2024-03-19 13:27] VITALS: BP 101/63; PULSE 62; RESP 17; O2SAT 94
[2024-03-19 13:37] VITALS: BP 117/72; PULSE 63; RESP 17; O2SAT 94
[2024-03-19 13:47] VITALS: BP 117/64; PULSE 56; RESP 16; TEMP 36.6; O2SAT 97
== END 2024-03-19 14:00 | disposition home or self-care (01) ==
PROVIDERS: Physician Assistant; PCP Family Medicine; Visit Provider Orthopaedic Surgery
PROC: (CPT 20610; principal; 2024-03-19 14:15)
DX: M16.11 Unilateral primary osteoarthritis, right hip (principal); I25.10 Atherosclerotic heart disease of native coronary artery without angina pectoris; I10 Essential (primary) hypertension
CPT/HCPCS: 20610; 36415; 73502; 76000; 80048; 80061; 80076; 83735; 84439; 84443; 85025; 96374; J0690; J2250; J3301; J7120; Q9967

== ENCOUNTER 2024-07-10 08:00 | Outpatient (RCR) | payer MEDICAID, SELFPAY | END 2024-07-10 23:59 | disposition home or self-care (01) | LOC: PT 08:00 | PROVIDERS: Visit Provider Orthopaedic Surgery Adult Reconstructive Orthopaedic Surgery | DX: M16.11 Unilateral primary osteoarthritis, right hip (principal); Z98.890 Other specified postprocedural states | CPT/HCPCS: 97163 ==

== ENCOUNTER 2024-08-04 10:19 | Emergency (ER) | payer MEDICAID, SELFPAY ==
[2024-08-04 10:19] VITALS: BP 144/91; PULSE 58; RESP 20; TEMP 36.9; O2SAT 98; BMI 31.0
--- NOTE | 2024-08-04 10:28 | XR_ITS ---
FINAL REPORT CLINICAL HISTORY: fall, L hip pain in groin FINDINGS: LEFT HIP: Two views of the left hip demonstrate no acute fracture or subluxation. There are mild degenerative changes. The visualized bony structures are well aligned. No soft tissue abnormality is seen. IMPRESSION: Degenerative changes with no acute process. Reviewed, Interpreted and Dictated by Tanner Bell MD Transcribed by Susan Duffy Authenticated and [facility]
--- NOTE | 2024-08-04 10:28 | XR_ITS ---
FINAL REPORT CLINICAL HISTORY: fall, left wrist pain FINDINGS: LEFT WRIST THREE VIEW FINDINGS: Three views show no evidence of an acute, displaced fracture or dislocation of the visualized bony architecture. 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 There is a chronic fracture fragment along the dorsal carpus. Mild degenerative changes are seen. IMPRESSION: Chronic changes without acute process. Reviewed, Interpreted and Dictated by Tanner Bell MD Transcribed by Susan Duffy Authenticated and [facility]
--- NOTE | 2024-08-04 10:28 | XR_ITS ---
FINAL REPORT CLINICAL HISTORY: fall on ice, distal radius pain FINDINGS: 2 views of the left forearm were obtained. There is no acute fracture or dislocation. There is an old chip fracture of the ulnar styloid process with nonunion. Mild degenerative changes are seen at the wrist and elbow joint. IMPRESSION: No acute process. Reviewed, Interpreted and Dictated by Tanner Bell MD Transcribed by Susan Duffy Authenticated and [facility]
[2024-08-04 10:30] VITALS: BP 144/91; PULSE 58; O2SAT 98
[2024-08-04] MEDS: KETOROLAC 30MG/ML VIAL 15 MG IV (10:38)
[2024-08-04] MEDS: ONDANSETRON 4MG/2ML VIAL 4 MG IV (10:38)
[2024-08-04] MEDS: HYDROMORPHONE 2MG/ML SYRINGE 0.5 MG IV (10:39)
--- NOTE | 2024-08-04 10:46 | CT_ITS ---
FINAL REPORT TECHNIQUE: Axial images through the pelvis were performed by computed tomography. This study was performed with techniques to keep radiation doses as low as reasonably achievable (ALARA). Individualized dose reduction techniques using automated exposure control or adjustment of mA and/or kV according to the patient's size were employed. CLINICAL HISTORY: concern for occult fx COMPARISON: 01/13/2023 FINDINGS: CT BONY PELVIS Mild degenerative changes are seen in the left hip. There is no acute fracture. There are post arthroplasty changes of the right hip. There is contusion and hemorrhage in the subcutaneous tissues overlying the left gluteal musculature presumably related to recent trauma. IMPRESSION: 1. No acute bony abnormality 2. Left posterior gluteal contusion involving the subcutaneous tissues. Reviewed, Interpreted and Dictated by Tanner Bell MD Transcribed by Susan Duffy Authenticated and [facility]
--- NOTE | 2024-08-04 10:46 | ED_ITS ---
Discharge Plan Disposition Patient Disposition: Home, Self-Care Prescriptions Prescriptions: New methocarbamol 750 mg tablet 1,500 mg PO TID 5 Days Qty: 30 0RF No Action aspirin [Adult Low Dose Aspirin] 81 mg tablet,delayed release (DR/EC) 81 mg PO DAILY (DME) OneTouch Ultra Test Strip See Rx Instructions .Route Qty: 100 12RF Rx Instructions: As directed (DME) blood-glucose meter [Blood Glucose Monitoring] Kit See Rx Instructions .Route Qty: 1 0RF Rx Instructions: As directed (DME) blood-glucose meter [OneTouch Ultra2 Meter] [facility] [place] See Rx Instructions .ROUTE .MEDSUPPLY Qty: 1 Patient Comments: As directed Rx Instructions: As directed doxycycline hyclate 100 mg tablet 100 mg PO BID 10 Days Qty: 20 0RF cetirizine 10 mg tablet See Rx Instructions .ROUTE .COMPLEX Qty: 90 3RF Dose Instruction: take 1 tablet by mouth daily As Needed for allergy symptoms Rx Instructions: take 1 tablet by mouth daily As Needed for allergy symptoms fluticasone propionate [Flonase Allergy Relief] 50 mcg/actuation spray,suspension 1 spray intranasal DAILY PRN (Reason: cold symptoms) Qty: 16 0RF Rx Instructions: administer into each nostril guaifenesin 1,200 mg tablet extended release 12hr 1,200 mg PO BID Qty: 60 0RF bisoprolol fumarate 10 mg tablet See Rx Instructions .ROUTE .COMPLEX Qty: 90 3RF Dose Instruction: TAKE ONE TABLET BY MOUTH DAILY Rx Instructions: TAKE ONE TABLET BY MOUTH DAILY omeprazole 40 mg capsule,delayed release(DR/EC) See Rx Instructions .ROUTE .COMPLEX Qty: 90 3RF Dose Instruction: TAKE ONE CAPSULE BY MOUTH DAILY Rx Instructions: TAKE ONE CAPSULE BY MOUTH DAILY lisinopril 10 mg tablet See Rx Instructions .ROUTE .COMPLEX Qty: 90 3RF Dose Instruction: TAKE ONE TABLET BY MOUTH DAILY Rx Instructions: TAKE ONE TABLET BY MOUTH DAILY clopidogrel 75 mg tablet See Rx Instructions .ROUTE .COMPLEX Qty: 90 3RF Dose Instruction: TAKE ONE TABLET BY MOUTH DAILY Rx Instructions: TAKE ONE TABLET BY MOUTH DAILY atorvastatin 20 mg tablet See Rx Instructions .ROUTE .COMPLEX Qty: 90 3RF Dose Instruction: take 1 tablet by mouth at bedtime nightly Rx Instructions: take 1 tablet by mouth at bedtime nightly citalopram 20 mg tablet See Rx Instructions .ROUTE .COMPLEX Qty: 90 3RF Dose Instruction: Take 1 tablet by mouth DAILY pt needs apt Rx Instructions: Take 1 tablet by mouth DAILY pt needs apt Referrals Follow up/Referrals: Norma Stephenson APRN [Primary Care Provider] - See instructions Activity Restrictions/Add. Instructions Additional Instructions/Restrictions: Call your family doctor to establish care for this visit to the emergency department and schedule follow-up within 48 hours to ensure improvement. If you have any worsening of your condition or any other concerning signs or symptoms, return to the emergency department or your primary care doctor for further evaluation. Robaxin can cause you to feel drowsy. Do not drive, operate heavy machinery, or engage in any activity that may make you tired, fall asleep, and because harm to yourself or others while taking this medication. Clinical Impressions Clinical Impression: Hematoma of buttock Print Language Print Language: [place] Discharge ED Provider: Orlin Ramirez General Adult HPI General Chief complaint: Fall Stated complaint: Fall @ 0830, L back/hip/wrist pain Time Seen by Provider: 08/04/24 10:22 Mode of Arrival: EMS Source of Information: Patient Limitations: No Limitations Description of Symptoms (Recalled from ER Triage Doc. by RN): pt feet slipped out from under him and he fell down 4 steps outside house due to ice, did not hit head and no loc, pt complaining of left hip and wrist pain. pms intact x4 and pt is alox4 upon triage History of Present Illness HPI narrative: Please note that above description of symptoms, in this electronic medical record under categorization of recalled from ER triage doctor by RN are reflective of an initial nursing assessment, however, is not reflective of my full history and physical exam that was personally taken and clarified. Consequentially, this preceding description of symptoms, which may include the patient's categorized chief complaint in the EMR, do not reflect my personal clinical impression, and the ultimate description of history of present illness and patient stated complaints should be deferred to this section of the note. Unless stated otherwise or congruent with this section of the note, additional signs, symptoms, or incongruence should be interpreted as inaccurate with my clinical impression. Related Data Home Medications ?Medication ?Instructions ?Recorded ?Confirmed aspirin 81 mg tablet,delayed 81 mg PO DAILY Heart disease 11/19/17 07/11/24 release (Adult Low Dose Aspirin) blood-glucose meter ([employer] #1 ea 01/11/24 07/11/24 Ultra2 Meter) Previous Rx's ?Medication ?Instructions ?Recorded blood sugar diagnostic (OneTouch #100 ea 11/14/22 Ultra Test strips) blood-glucose meter (Blood Glucose #1 ea 07/24/23 Monitoring kit) bisoprolol fumarate 10 mg tablet See Rx Instructions .Route 11/14/23 .COMPLEX #90 tabs atorvastatin 20 mg tablet See Rx Instructions .Route 12/07/23 .COMPLEX #90 tabs clopidogrel 75 mg tablet See Rx Instructions .Route 12/07/23 .COMPLEX #90 tabs lisinopril 10 mg tablet See Rx Instructions .Route 12/07/23 .COMPLEX #90 tabs omeprazole 40 mg capsule,delayed See Rx Instructions .Route 12/07/23 release .COMPLEX #90 caps citalopram 20 mg tablet See Rx Instructions .Route 01/03/24 .COMPLEX #90 tabs cetirizine 10 mg tablet See Rx Instructions .Route 07/11/24 .COMPLEX #90 tabs doxycycline hyclate 100 mg tablet 100 mg PO BID 10 days #20 tabs 07/11/24 fluticasone propionate 50 1 spray intranasal DAILY PRN cold 07/11/24 mcg/actuation nasal symptoms #16 grams spray,suspension (Flonase Allergy Relief) guaifenesin 1,200 mg tablet, 1,200 mg PO BID #60 tabs 07/11/24 extended release 12 hr methocarbamol 750 mg tablet 1,500 mg (2 x 750 mg) PO TID 5 08/04/24 days #30 tabs Allergies Allergy/AdvReac Type Severity Reaction Status Date / Time erythromycin base Allergy Mild UPSET Verified 07/11/24 13:28 (ERYTHROMYCIN BASE) STOMACH Macrolide Antibiotics Allergy Mild UPSET Verified 07/11/24 13:28 (MACROLIDE ANTIBIOTICS) STOMACH PFSH PFSH Disclaimer: The information contained in this section may have been updated after the patient was seen, as this information can be updated by other users. Medical History Kidney stone COPD (chronic obstructive pulmonary disease) Asthma Osteoarthritis History of gastroesophageal reflux (GERD) History of chest pain History of heart attack Hyperlipidemia Hypertension Carotid artery stenosis Surgical History Hx of right heart catheterization Family History Father Lymphoma Social History Smoking Status: Never smoker alcohol intake: never substance use type: denies use current occupational status: employed Travel in the last 8 weeks: None household members: spouse housing: house Have you lived/traveled outside [place] in past 30 days?: No Contact w/someone who lives/traveled outside US past 30 days?: No Exposure to someone with infectious disease in past 14 days?: No Do you have a fever (greater than 100.4 F or 38 C)?: No Have you tested positive for COVID-19: No Exposed to someone with COVID-19 in past 14 days?: No Do you have a sore throat?: No Do you have a cough?: No Do you have any weakness?: No Do you have any diarrhea?: No Are you experiencing any unusual bleeding?: No Do you have any muscle aches/pain?: No Do you have any abdominal pain?: No Are you experiencing loss of taste or smell?: No Other Medical History Have you received the Flu Vaccine for this season: No Have you received the Pneumonia Vaccine: No ROS Obtained: Yes All systems reviewed & no additional complaints except as documented Physical Exam General General appearance: alert and in distress (Mild distress secondary to pain) Head Head exam: atraumatic and normocephalic Eye Eye exam: Present normal appearance, PERRL and EOMI Neck Neck exam: Present normal inspection, full ROM and trachea midline Respiratory Respiratory exam: Absent respiratory distress, wheezes, stridor, accessory muscle use or prolonged expiratory phase Cardiovascular Cardiovascular exam: Present other (Pulses equal symmetric in upper and lower extremities) Abdominal Exam Abdominal exam: Present soft; Absent distention, tenderness or pulsatile mass Extremities Exam Extremities exam: Present other (Per MDM); Absent edema Neurological Exam Neurological exam: Present alert, oriented X3 and CN II-XII intact; Absent motor sensory deficit Skin Skin exam: Present warm and dry; Absent diaphoresis or erythema Medical Decision Making Medical Records Medical records reviewed: Yes I reviewed the patient's medical records. Screening: Per USPSTF and CDC recommendations, given the prevalence of disease in our region, it is our hospital?s policy to screen for HIV and viral Hepatitis for all patients aged 18 and over and those with ongoing risk factors. [place] Inquiry Pt receiving controlled substance: No [place] was queried for this patient: No Vital Signs: 08/04/24 10:19 08/04/24 10:30 08/04/24 11:00 Temperature 98.4 F Temperature Source Oral Pulse Rate 58 L 57 L Pulse Rate [Left Radial] 58 L Respiratory Rate 20 Blood Pressure 144/91 H 111/78 Blood Pressure [Right Arm] 144/91 H Blood Pressure Mean [Right Arm] 108 02 Sat by Pulse Oximetry 98 98 100 Oxygen Delivery Method Room Air Room Air Lab Data Lab Results 08/04/24 10:30: WBC 8.9, RBC 4.32 L, Hgb 12.6 L, Hct 37.8 L, MCV 87.5, MCH 29.2, MCHC 33.3, RDW 13.1, Plt Count 281, MPV 8.7, Neut % (Auto) 71.4, Lymph % (Auto) 20.0, [place] % (Auto) 6.3, Eos % (Auto) 1.2, Baso % (Auto) 0.9, Neut # (Auto) 6.4, Lymph # (Auto) 1.8, [place] # (Auto) 0.6, Eos # (Auto) 0.1, Baso # (Auto) 0.1, PT 10.3, INR 0.91, APTT 25.8, Sodium 134 L, Potassium 4.3, Chloride 101, Carbon Dioxide 24, Anion Gap 13.3, BUN 12, Creatinine 0.80, Estimated Creat Clear 102, Estimated GFR 98, Est GFR ( Amer) 118, Glucose 111 H, Calcium 9.4, Total Bilirubin 0.3, AST 41, ALT 32, Alkaline Phosphatase 133 H, Total Protein 7.1, Albumin 4.4, Globulin 2.7, Albumin/Globulin Ratio 1.6, Triglycerides 298 H, Cholesterol 170, LDL Cholesterol Direct 84.81 L, VLDL Cholesterol 60 H, HDL Cholesterol 33 L, Cholesterol/HDL Ratio 5.2 H 08/04/24 10:30 08/04/24 10:30 Orders (Tests/Meds): ED MEDICATIONS Discontinued Medications Generic Name Dose Route Start Last Admin Trade Name Freq PRN Reason Stop Dose Admin Hydromorphone HCl 0.5 mg 08/04/24 10:28 08/04/24 10:39 Hydromorphone 2mg/Ml Syringe IV 08/04/24 10:29 0.5 mg ONCE ONE Administration Ketorolac Tromethamine 15 mg 08/04/24 10:28 08/04/24 10:38 Ketorolac 30mg/Ml Vial IV 08/04/24 10:29 15 mg ONCE ONE Administration Methocarbamol 1,500 mg 08/04/24 11:35 Methocarbamol 500mg Tablet PO 08/04/24 11:36 ONCE ONE Ondansetron HCl 4 mg 08/04/24 10:28 08/04/24 10:38 Ondansetron 4mg/2ml Vial IV 08/04/24 10:29 4 mg ONCE ONE Administration ORDERS Category Date Time Status CT bony pelvis Stat Cat Scan 08/04/24 10:[address] lumbar spine wo con Stat Cat Scan 08/04/24 10:50 Completed Forearm XR left 2 views [XR forearm LT 2V] Stat Exams 08/04/24 10:28 Completed Hip XR left minimum 2 views [XR hip LT 2-3V w/pelvis] Exams 08/04/24 10:28 Completed Stat Wrist XR left minimum 3 views [XR wrist LT min 3V] Stat Exams 08/04/24 10:28 Completed Complete Blood Count Auto Diff Stat Lab 08/04/24 10:30 Completed Comprehensive Metabolic Panel Stat Lab 08/04/24 10:30 Completed Hemoglobin A1C Stat Lab 08/04/24 10:30 Received Lipid Panel Stat Lab 08/04/24 10:30 Completed PT INR [Prothrombin Time INR] Stat Lab 08/04/24 10:30 Completed PTT [Activated Partial Thrombo Time] Stat Lab 08/04/24 10:30 Completed Medical Decision Narrative: 63-year-old male history of hypertension, hyperlipidemia, diabetes CAD status post stenting, presenting with fall. Patient states he was walking out of his house just prior to arrival. Slipped on ice, fell down 4 steps and rolled into the yard. Having significant pain in his left hip and his left wrist. Did not hit his head, did not lose consciousness. States that he tried to stand up, was unable to, needed his 's help to get into the house. Called EMS and was brought here for further evaluation. States that the pain is not bad at rest, but with any movement including flexion of the hip as well as internal/external rotation of the left hip having significant pain. Also having lumbar spine pain. No bowel or bladder dysfunction, numbness, tingling, weakness. Brought in for further evaluation. History was obtained via conversation with patient and EMS. On arrival, patient hemodynamically stable, alert, oriented x4, appropriate, GCS 15, moving all extremities spontaneously, pupils equal and reactive to light. Full physical exam performed and significant for well- appearing male at rest, but with any movement of left hip having significant pain. He has pain in his left groin/true hip joint area. Significant pain with any internal or external rotation and flexion of the hip. Neurovascularly intact. Patient also has distal radius tenderness, no outward signs of abnormality and also neurovascularly intact. Differential includes fracture, sprain, strain, pelvic fracture, neurovascular injury, lumbar spinal fracture, among others. Patient was given Toradol, Dilaudid, Zofran. Labs are ordered in case patient has fracture and needs operative clearance. Images were independently interpreted. No obvious fracture or bony abnormality on pelvis x-ray. No obvious abnormality of the wrist or forearm on left upper extremity films. CT of the lumbar spine and bony pelvis were ordered out of concern for acute fracture given the level of patient's pain. On independent interpretation no acute bony abnormality. He has gluteal hematoma, but structurally intact. On reevaluation, patient resting comfortably, muscle relaxer was given. Given patient presentation, workup, history, this most likely represents acute musculoskeletal spasm in the setting of intramuscular hematoma and fall. Because patient at baseline without signs or symptoms of clinical decompensation, deemed appropriate for discharge. Results were relayed to patient who voiced understanding and were agreeable to outpatient management and follow up. I discussed my clinical impression with patient and answered all questions. At this time, the evidence for any other entities in the differential is insufficient to warrant any further testing or ED observation. This was explained as well. Advisory was given that persistent or worsening symptoms require further evaluation. I confirmed the understanding of this discussion. 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 Electronic metal ceiling builder of the spoken language may permit errors. Although I have reviewed the note, some errors may still exist. Critical Care Critical Care Time Critical Care Time: No
--- NOTE | 2024-08-04 10:50 | CT_ITS ---
FINAL REPORT CLINICAL HISTORY: fall, midline pain COMPARISON: 01/13/2023 FINDINGS: CT LUMBAR SPINE TECHNIQUE: Thin section axial CT with sagittal and coronal reconstructions This study was performed with techniques to keep radiation doses as low as reasonably achievable, (ALARA). Individualized dose reduction techniques using automated exposure control or adjustment of mA and/or kV according to the patient's size were employed. FINDINGS: No fracture is present. Alignment is normal. Diffuse degenerative changes are noted. There is significant degenerative canal stenosis at L3-4 and L4-5 with neuroforaminal narrowing. IMPRESSION: No acute bony abnormality. Significant degenerative canal stenosis in the lower lumbar spine. Reviewed, Interpreted and Dictated by Tanner Bell MD Transcribed by Myra Kauffman Authenticated and [facility]
--- NOTE | 2024-08-04 10:50 | PC.NURSE ---
pt to ct/xr via stretcher
[2024-08-04 10:52] LABS: Basophils # 0.1 K/mm3 (0-0.2); Basophils % 0.9 % (0.1-2.0); Eosinophils # 0.1 K/mm3 (0.0-0.4); Eosinophils % 1.2 % (0.1-12.0); Hematocrit 37.8 % (42.0-52.0); Hemoglobin 12.6 g/dL (14.1-18.0); Lymphocytes # 1.8 K/mm3 (0.7-4.5); Mean Corpuscular HGB Conc 33.3 g/dL (31.8-35.4); Mean Corpuscular Hemoglobin 29.2 pg (27.0-31.2); Mean Corpuscular Volume 87.5 fl (80-94); Mean Platelet Volume 8.7 fl (7.4-10.4); Monocytes # 0.6 K/mm3 (0.1-1.0); Monocytes % 6.3 % (1.7-9.3); Neutrophils # 6.4 K/mm3 (1.8-7.8); Neutrophils % 71.4 % (37.0-80.0); Platelet Count 281 K/mm3 (142-424); Red Blood Count 4.32 M/mm3 (4.60-6.20); Red Cell Distribution Width 13.1 % (11.5-17.5); White Blood Count 8.9 K/mm3 (4.8-10.8)
[2024-08-04 10:57] LABS: Activated Partial Thrombo Time 25.8 seconds (22.8-30.6); INR 0.91 (0.9-1.1); Prothrombin Time 10.3 seconds (10.1-12.5)
[2024-08-04 11:00] VITALS: BP 111/78; PULSE 57; O2SAT 100
[2024-08-04 11:04] LABS: Alanine Aminotransferase 32 U/L (12-78); Albumin Level 4.4 g/dl (3.5-5.0); Albumin/Globulin Ratio 1.6 (1.1-1.8); Alkaline Phosphatase 133 U/L (38-126); Anion Gap 13.3 mEq/L (5-15); Aspartate Amino Transferase 41 U/L (17-59); Bilirubin,Total 0.3 mg/dl (0.2-1.3); Blood Urea Nitrogen 12 mg/dl (9-20); Calcium 9.4 mg/dl (8.4-10.2); Carbon Dioxide 24 mmol/L (22.0-30.0); Chloride 101 mmol/L (98-107); Chol/HDL Ratio 5.2 (1-3.5); Cholesterol 170 mg/dl (140-200); Creatinine Clearance Estimated 102 mL/min (50-200); Estimated Glomerular Filt Rate 98 ml/min (>60); GFR (African American) 118 ML/MIN (>60); Globulin 2.7 g/dL (1.3-3.2); Glucose 111 mg/dl (74-100); HDL Cholesterol 33 mg/dl (40-60); Potassium 4.3 mmoL/L (3.5-5.1); Sodium 134 mmol/L (136-145); Total Protein,Serum 7.1 g/dl (6.3-8.2); Triglycerides 298 mg/dl (30-150); VLDL Cholesterol 60 mg/dL (0-40)
[2024-08-04 11:15] LABS: Direct LDL Cholesterol 84.81 mg/dL (100-129)
--- NOTE | 2024-08-04 11:20 | PC.NURSE ---
ROUNDED ON PT STATES NO NEEDS AT THIS TIME, CALL LIGHT IN REACH
[2024-08-04 11:30] VITALS: BP 129/76; PULSE 55; O2SAT 96
[2024-08-04 12:00] VITALS: BP 122/76; PULSE 55; O2SAT 95
[2024-08-04 12:03] VITALS: BP 122/76; PULSE 53; RESP 20; TEMP 36.8; O2SAT 98
[2024-08-04] MEDS: METHOCARBAMOL 500MG TABLET 1500 MG PO (12:14)
[2024-08-04 12:42] LABS: Hemoglobin A1C 5.9 % (4.0-6.0)
== END 2024-08-04 12:19 | disposition home or self-care (01) ==
PROVIDERS: Emergency Provider Emergency Medicine; PCP Family Medicine
DX: S30.0XXA Contusion of lower back and pelvis, initial encounter (principal); M25.552 Pain in left hip; M25.532 Pain in left wrist; W00.1XXA Fall from stairs and steps due to ice and snow, initial encounter; Y93.89 Activity, other specified; Y92.007 Garden or yard of unspecified non-institutional (private) residence as the place of occurrence of the external cause
CPT/HCPCS: 72131; 72192; 73090; 73110; 73502; 80053; 80061; 83036; 85025; 85610; 85730; 96374; 96375; 99284; J1171; J1885; J2405

== ENCOUNTER 2024-08-28 09:56 | Outpatient (CLI) | payer MEDICAID, SELFPAY ==
[2024-08-28 19:15] LABS: Coronavirus 19, PCR Not Detected (NotDetected); Influenza B, PCR Not Detected (NotDetected)
[2024-08-28 20:29] LABS: Free Thyroxine Index 1.7 ug/dL (5.93-13.13); T4 (Thyroxine) 5.7 ug/dl (5.53-11.0); Triiodothryronine (T3) Uptake 29 % (23.5-40.5)
[2024-08-29 00:16] LABS: Influenza A, PCR Detected (NotDetected)
== END 2024-08-28 23:59 | disposition home or self-care (01) ==
LOC: LAB.DROPOF 08-29 12:47
PROVIDERS: PCP Family Medicine; Visit Provider Family Medicine
DX: R05.9 Cough, unspecified (principal); R79.89 Other specified abnormal findings of blood chemistry
CPT/HCPCS: 84436; 84443; 84479; 87636

== ENCOUNTER 2024-11-23 11:34 | Emergency (ER) | payer MEDICAID, SELFPAY ==
[2024-11-23 11:44] VITALS: BP 121/75; PULSE 63; O2SAT 96
[2024-11-23 11:47] VITALS: BP 121/75; PULSE 64; RESP 20; TEMP 36.7; O2SAT 96; BMI 32.5
[2024-11-23] MEDS: TET/DIPHTH/PERT-ADULT 0.5ML SYRINGE 0.5 ML IM (11:59)
--- NOTE | 2024-11-23 12:46 | XR_ITS ---
PROCEDURE INFORMATION: Exam: XR Left Hand Exam date and time: 11/23/2024 12:51 PM Age: 64 years old Clinical indication: Injury or trauma; Other: Cut on 2nd fingertip; Laceration; Left; Index finger; Additional info: Avulsion tip of finger TECHNIQUE: Imaging protocol: Radiologic exam of the left hand. Views: 3 or more views. COMPARISON: CR XR FOREARM LT 2V 08/04/2024 10:28 AM FINDINGS: Bones/joints: No acute fracture. Soft tissues: Soft tissue deformity distal tip 2nd digit without radiopaque foreign body. IMPRESSION: 1. Soft tissue deformity distal tip 2nd digit without radiopaque foreign body. 2. No acute fracture.
[2024-11-23 13:25] VITALS: BP 132/68; PULSE 72; RESP 18; TEMP 36.7; O2SAT 97
--- NOTE | 2024-11-23 13:37 | ED_ITS ---
<Statement entered by Manny Plummer DO - 11/25/24 14:39> I was consulted by the YOMAIRA, and we discussed the complexity of the problem being addressed. I approve the treatment and management plan for this patient's care in the emergency department, thus performing a substantive portion of the medical decision making. Seen by YOMAIRA only. Manny Plummer DO Discharge Plan Disposition Patient Disposition: Home, Self-Care Condition: Good Prescriptions Prescriptions: No Action aspirin [Adult Low Dose Aspirin] 81 mg tablet,delayed release (DR/EC) 81 mg PO DAILY (DME) OneTouch Ultra Test Strip See Rx Instructions .Route Qty: 100 12RF Rx Instructions: As directed (DME) blood-glucose meter [Blood Glucose Monitoring] Kit See Rx Instructions .Route Qty: 1 0RF Rx Instructions: As directed (DME) blood-glucose meter [OneTouch Ultra2 Meter] Misc See Rx Instructions .ROUTE .MEDSUPPLY Qty: 1 Patient Comments: As directed Rx Instructions: As directed cetirizine 10 mg tablet See Rx Instructions .ROUTE .COMPLEX Qty: 90 3RF Dose Instruction: take 1 tablet by mouth daily As Needed for allergy symptoms Rx Instructions: take 1 tablet by mouth daily As Needed for allergy symptoms fluticasone propionate [Flonase Allergy Relief] 50 mcg/actuation spray,suspension 1 spray intranasal DAILY PRN (Reason: cold symptoms) Qty: 16 0RF Rx Instructions: administer into each nostril ujvgcnqlqyednop-[id number] [Bromfed DM] 2-30-10 mg/5 mL syrup 10 ml PO Q6H PRN (Reason: cold symptoms) Qty: 118 0RF bisoprolol fumarate 10 mg tablet See Rx Instructions .ROUTE .COMPLEX Qty: 90 3RF Dose Instruction: TAKE ONE TABLET BY MOUTH DAILY Rx Instructions: TAKE ONE TABLET BY MOUTH DAILY atorvastatin 20 mg tablet See Rx Instructions .ROUTE .COMPLEX Qty: 90 3RF Dose Instruction: take 1 tablet by mouth at bedtime nightly Rx Instructions: take 1 tablet by mouth at bedtime nightly citalopram 20 mg tablet 20 mg PO DAILY Qty: 90 0RF clopidogrel 75 mg tablet See Rx Instructions .ROUTE .COMPLEX Qty: 90 3RF Dose Instruction: TAKE ONE TABLET BY MOUTH DAILY Rx Instructions: TAKE ONE TABLET BY MOUTH DAILY lisinopril 10 mg tablet See Rx Instructions .ROUTE .COMPLEX Qty: 90 3RF Dose Instruction: TAKE ONE TABLET BY MOUTH DAILY Rx Instructions: TAKE ONE TABLET BY MOUTH DAILY omeprazole 40 mg capsule,delayed release(DR/EC) See Rx Instructions .ROUTE .COMPLEX Qty: 90 3RF Dose Instruction: TAKE ONE CAPSULE BY MOUTH DAILY Rx Instructions: TAKE ONE CAPSULE BY MOUTH DAILY methocarbamol 750 mg tablet 1,500 mg PO TID 5 Days Qty: 30 0RF Referrals Follow up/Referrals: Norma Stephenson APRN [Primary Care Provider] - See instructions Activity Restrictions/Add. Instructions Additional Instructions/Restrictions: You were seen for a laceration/ avulsion of the tip of your finger. Follow up with your doctor for a wound check this week. Return to the ER for bleeding, redness, pus or fever. Clinical Impressions Clinical Impression: Avulsion of skin of finger Instructions Patient Instructions: DI for Laceration Repair Print Language Print Language: Greenlandic Discharge ED Provider: Manny Plummer General Adult HPI General Chief complaint: Wound/Laceration Stated complaint: AO-1100, lacer to L index finger, on blood thinner Time Seen by Provider: 11/23/24 12:02 Mode of Arrival: Ambulatory Source of Information: Patient Description of Symptoms (Recalled from ER Triage Doc. by RN): pt cut his left index finger at 1100 today on box liner, pt is navin x 4 and bleeding is controlled Related Data Home Medications ?Medication ?Instructions ?Recorded ?Confirmed aspirin 81 mg tablet,delayed 81 mg PO DAILY Heart disease 11/19/17 10/03/24 release (Adult Low Dose Aspirin) blood-glucose meter (OneTouch #1 ea 01/11/24 10/03/24 Ultra2 Meter) Previous Rx's ?Medication ?Instructions ?Recorded blood sugar diagnostic (OneTouch #100 ea 11/14/22 Ultra Test strips) blood-glucose meter (Blood Glucose #1 ea 07/24/23 Monitoring kit) bisoprolol fumarate 10 mg tablet See Rx Instructions .Route 11/14/23 .COMPLEX #90 tabs cetirizine 10 mg tablet See Rx Instructions .Route 07/11/24 .COMPLEX #90 tabs fluticasone propionate 50 1 spray intranasal DAILY PRN cold 07/11/24 mcg/actuation nasal symptoms #16 grams spray,suspension (Flonase Allergy Relief) methocarbamol 750 mg tablet 1,500 mg (2 x 750 mg) PO TID 5 08/04/24 days #30 tabs qejasmozuevyscc-tnqbgqmmjlxoiyt-TY 10 ml PO Q6H PRN cold symptoms 10/03/24 2 mg-30 mg-10 mg/5 mL oral syrup #118 mL (Bromfed DM) atorvastatin 20 mg tablet See Rx Instructions .Route 10/31/24 .COMPLEX #90 tabs citalopram 20 mg tablet 20 mg PO DAILY #90 tabs 10/31/24 clopidogrel 75 mg tablet See Rx Instructions .Route 10/31/24 .COMPLEX #90 tabs lisinopril 10 mg tablet See Rx Instructions .Route 10/31/24 .COMPLEX #90 tabs omeprazole 40 mg capsule,delayed See Rx Instructions .Route 10/31/24 release .COMPLEX #90 caps Allergies Allergy/AdvReac Type Severity Reaction Status Date / Time erythromycin base Allergy Mild UPSET Verified 10/03/24 08:40 (ERYTHROMYCIN BASE) STOMACH Macrolide Antibiotics Allergy Mild UPSET Verified 10/03/24 08:40 (MACROLIDE ANTIBIOTICS) STOMACH PFSH PFSH Disclaimer: The information contained in this section may have been updated after the patient was seen, as this information can be updated by other users. Medical History (Updated 11/23/24 @ 12:49 by REYNALDO Gardner) Food intolerance Bloating Esophageal pain Abdominal pain Cerumen impaction Acute pain of right hip Kidney stone COPD (chronic obstructive pulmonary disease) Asthma Osteoarthritis History of gastroesophageal reflux (GERD) History of chest pain History of heart attack Hyperlipidemia Hypertension Carotid artery stenosis Surgical History (Updated 08/28/24 @ 10:48 by Norma Stephenson APRN) Hx of right heart catheterization Family History Father Lymphoma Social History Smoking Status: Never smoker alcohol intake: never substance use type: denies use current occupational status: employed Travel in the last 8 weeks?: None household members: spouse housing: house Have you lived/traveled outside US in past 30 days?: No Contact w/someone who lives/traveled outside US past 30 days?: No Exposure to someone with infectious disease in past 14 days?: No Do you have a fever (greater than 100.4 F or 38 C)?: No Have you tested positive for COVID-19?: No Exposed to someone with COVID-19 in past 14 days?: No Do you have a sore throat?: No Do you have a cough?: No Do you have any weakness?: No Do you have any diarrhea?: No Are you experiencing any unusual bleeding?: No Do you have any muscle aches/pain?: No Do you have any abdominal pain?: No Are you experiencing loss of taste or smell?: No Other Medical History Have you received the Flu Vaccine for this season: No Have you received the Pneumonia Vaccine: No ROS Obtained: Yes Systems reviewed as appropriate & no additional complaints except as documented Physical Exam General General appearance: alert and in no apparent distress Head Head exam: atraumatic and normocephalic Eye Eye exam: Present normal appearance and EOMI Chest Chest inspection: Present symmetric chest wall rise Respiratory Respiratory exam: Present normal lung sounds bilaterally; Absent wheezes or stridor Cardiovascular Cardiovascular exam: Present regular rate and normal rhythm; Absent systolic murmur Extremities Exam Extremities exam: Present full ROM Neurological Exam Neurological exam: Present alert and oriented X3 Psychiatric Psychiatric exam: Present normal affect and normal mood Skin Skin exam: Present other (Left 2nd digit avulsion of distal nail and fingertip dorsal surface, N/V intact, FROM ) Medical Decision Making Medical Records Screening: Per USPSTF and CDC recommendations, given the prevalence of disease in our region, it is our hospital?s policy to screen for HIV and viral Hepatitis for all patients aged 18 and over and those with ongoing risk factors. [place] Inquiry Pt receiving controlled substance: No Vital Signs: 11/23/24 11:44 11/23/24 11:47 11/23/24 13:25 Temperature 98.0 F 98.0 F Temperature Source Oral Oral Pulse Rate 63 72 Pulse Rate [Left Radial] 64 Respiratory Rate 20 18 Blood Pressure 121/75 132/68 Blood Pressure [Right Arm] 121/75 Blood Pressure Mean 85 Blood Pressure Mean [Right Arm] 90 Blood Pressure Source Automatic Cuff Blood Pressure Position Sitting 02 Sat by Pulse Oximetry 96 96 Oxygen Delivery Method Room Air Room Air Room Air Orders (Tests/Meds): ED MEDICATIONS Discontinued Medications Generic Name Dose Route Start Last Admin Trade Name Freq PRN Reason Stop Dose Admin Tetanus/Reduced Diphtheria/Acell Pertussis 0.5 ml 11/23/24 11:52 11/23/24 11:59 Tet/Diphth/Pert-Adult 0.5ml Syringe IM 11/23/24 11:53 0.5 ml .ONCE ONE Administration ORDERS Category Date Time Status XR hand LT min 3V Stat Exams 11/23/24 12:46 Completed Radiology Data #1: Image(s): Hand (IMPRESSION: 1. Soft tissue deformity distal tip 2nd digit without radiopaque foreign body. 2. No acute fracture. ) Preliminary Findings: No Fracture Seen Medical Decision Narrative: In summary patient is a 64-year-old who presents the emergency department for evaluation of laceration of fingertip. Patient is hemodynamically stable upon arrival, afebrile. Initially wound covered with wound seal , after soaking and cleaning I visualized an avulsion of left second digit distal phalanx. Differential diagnosis includes laceration, avulsion, fracture. Initial workup will be conducted with plain films. Initial inventions include wound was cleaned and Surgicel applied to skin avulsion. Initial workup reviewed by me unremarkable x-ray. Upon repeat evaluation patient had resolution of bleeding. Given this patient is appropriate for discharge at this time with return precautions. I informally interpreted the patient's hand xray. Critical Care Critical Care Time Critical Care Time: No
== END 2024-11-23 13:26 | disposition home or self-care (01) ==
PROVIDERS: Emergency Provider Student in an Organized Health Care Education/Training Program; PCP Family Medicine
DX: S61.201A Unspecified open wound of left index finger without damage to nail, initial encounter (principal); W26.8XXA Contact with other sharp object(s), not elsewhere classified, initial encounter; Z23 Encounter for immunization
CPT/HCPCS: 73130; 90471; 90715; 99283

== ENCOUNTER 2025-02-19 08:50 | Outpatient (POV) | payer MEDICAID, SELFPAY ==
--- OUTSIDE RECORDS SUMMARY | 2025-02-19 08:58 | XMS_ITS | Encounter Summary ---
Author Organization Healthcare Address [address] [place] [address] Care Team Providers Care Brim Pouncer Machine Operator Name Role Phone Chip Falcon MD Primary Care Provider [phone] Norma Stephenson APRN Primary Care Provider [phone] Encounter Details Date Type Department Care Team ([facility] st Contact Info) Description 04/26/2017 Orders Only External Location [address] [place] [address] Provider, External Social History Tobacco Use Types Packs/Day Years Used Date Smoking Tobacco: Never Assessed Sex and Gender Information Value Date Recorded Sex Assigned at Not on file Legal Sex Male 6:30 PM EDT Gender Identity Not on file Sexual Orientation Not on file documented as of this encounter Plan of Treatment Not on file documented as of this encounter Procedures Procedure Name Priority Date/Time Associated Diagnosis Comments XR OUTSIDE IMAGES 04/26/2017 1:31 PM EDT documented in this encounter Results * XR OUTSIDE IMAGES (04/26/2017 1:31 PM EDT) Anatomical Region Laterality Modality Radiographic Kelsie ging 04/26/2017 1:31 PM EDT us External Provider IMG XR PROCEDURES Final Result documented in this encounter Visit Diagnoses Not on filedocumented in this encounter Care Teams Brim Pouncer Machine Operator Relationship Specialty Start Date End Date Chip Falcon MD [address] [place] [address] PCP - General 11/11/21 05/25/24 Norma Stephenson APRN [address] [place] [address] PCP - General 05/26/24 documented as of this encounter
--- OUTSIDE RECORDS SUMMARY | 2025-02-19 08:58 | XMS_ITS ---
Author Organization [facility] Address [address] [place] [address] Care Team Providers Care Supervisor Delivery Department Name Role Phone Norma Stephenson APRN Primary Care Provider Active Problems Problem Noted Date Diagnosed Date Arthritis of right hip 06/16/2024 Unilateral primary osteoarthritis, right hip 06/2024 Basal cell carcinoma (BCC) of skin of right wris t 11/03/2021 Overview (11/03/2021): Added automatically from request for surgery [id number] Scalp lesion 11/03/2021 Overview (11/03/2021): Added automatically from request for surgery [id number] Current Treatment and Therapy Plans No current plan information found. Past Treatment and Therapy Plans No past plan information found. Lifetime Dose Tracking * Chemical Lifetime Dose Automatic Entry Manual Entr y Fluoro Time 0.4 minutes 0.4 minutes 0 minutes Air Kerma 4.44 mGy 4.44 mGy 0 mGy
--- OUTSIDE RECORDS SUMMARY | 2025-02-19 08:58 | XMS_ITS | Clinical Summary ---
Author Organization [employer] ([place], [place], [place], [place]) Address [address] [place] [address] Care Team Providers Care Palliative Nurse Name Role Phone Deborah Chilo Earl JUNG Primary Care Provider [phone] Allergies Active Allergy Reactions Criticality Noted Date Comments Clindamycin Low 11/03/2021 Other Reaction(s): Other - please document in the comment field Upset stomach Erythromycin 10/17/2024 Nitrofurantoin Monohyd/M-Cryst 10/17/2024 Penicillins Rash Low 11/28/2013 Medications aspirin 81 MG EC tablet Take 1 tablet (81 mg total) by mouth daily. Active clopidogreL (PLAVIX) 75 mg tablet Take 1 tablet (75 mg total) by mouth daily Look-alike/So und-alike medication. Active nitroglycerin (NITROSTAT) 0.[address] 1 tablet (0.4 mg total) under the tongue every 5 (five) minutes as needed for chest pain Put 1 pill under tongue every 5min as needed for chest pain.No more than 3 doses in 15min.Call 911 if pain unrelieved 5min after 1st dose. Active omeprazole (PriLOSEC) 40 MG capsule Take 1 capsule (40 mg total) by mouth Daily (0600). Active atorvastatin (LIPITOR) 20 MG tablet Take 1 tablet (20 mg total) by mouth nightly. Active citalopram (CeleXA) 20 MG tablet Take 1 tablet (20 mg total) by mouth daily Look-alike/So und-alike medication. Active lisinopriL (ZESTRIL) 10 MG tablet Take 1 tablet (10 mg total) by mouth daily. Active potassium chloride (KLOR-CON) 10 MEQ CR tablet Take 1 tablet (10 mEq total) by mouth daily. Active cetirizine (ZyrTEC) 10 MG tablet Take 1 tablet (10 mg total) by mouth daily. Active bisoprolol (ZEBETA) 10 MG tabletIndicatio ns:Ischemic heart disease Take 1 tablet (10 mg total) by mouth daily. 90 tablet 3 Active Active Problems Problem Noted Date Diagnosed Date Atypical chest pain 10/17/2024 Depression 10/17/2024 Hypertension 10/17/2024 Hyperlipidemia 10/17/2024 Interstitial lung disorders 10/17/2024 Ischemic heart disease 10/17/2024 Heart murmur 10/17/2024 CAD (coronary artery disease) 10/17/2024 Arteriosclerosis of carotid artery 10/17/2020 Angina pectoris 10/17/2020 Chronic obstructive pulmonary disease 10/17/2020 Dizziness and giddiness 10/17/2020 Gastroesophageal reflux disease 10/17/2020 Shortness of breath 09/17/2020 Encounters Date Type Department Care Team Description 11/20/2024 Orders Only [facility] Cardiology - [address] [address] Isaias Melgar MD Ischemic heart disease (Primary Dx) from Last 3 Months Family History Medical History Relation Name Comments Hypertension Mother Relation Name Status Comments Mother Social History Tobacco Use Types Packs/Day Years Used Date Smoking Tobacco: Former Cigarettes Smokeless Tobacco: Never Alcohol Use Standard Drinks/Week Comments Not Currently 0 (1 standard drink = 0.6 oz pur e alcohol) CAFFEINE USE Sex and Gender Information Value Date Recorded Sex Assigned at Not on file Legal Sex Male 5:34 PM CDT Gender Identity Not on file Sexual Orientation Not on file Last Filed Vital Signs Vital Sign Reading Time Taken Comments Blood Pressure 150/88 10/20/2024 9:55 AM EDT Pulse 54 10/20/2024 9:55 AM EDT Temperature - - Respiratory Rate 20 10/20/2024 9:55 AM EDT Oxygen Saturation 93% 10/20/2024 9:55 AM EDT Inhaled Oxygen Concentration - - Weight 97.1 kg (214 lb) 10/20/2024 9:55 AM EDT Height 175.3 cm (5' 9 ) 10/20/2024 9:55 AM EDT Body Mass Index 31.6 10/20/2024 9:55 AM EDT Plan of Treatment Upcoming Encounters Date Type Department Care Team (Late st Contact Info) Description 04/22/2025 9:45 AM EDT Office Visit [facility] Cardiology - [place] [address] [place] [id number] Isaias Melgar MD [address] [place] [address] Health Maintenance Due Date Last Done Comments CT Colonography 1960 Colonoscopy 1960 Colorectal Cancer Screening 1960 FOBT/FIT 1960 Fit-DNA (Cologuard) 1960 Sigmoidoscopy 1960 HIV Screening 11/03/1975 Hepatitis C Screening 1978 Pneumococcal 50+ years (1 of 2 - PCV) 11/03/1979 Lipid Panel 11/03/1995 Shingles Vaccine (Zoster) (1 of 2) 2010 Respiratory Syncytial Virus (RSV) Adult or (1 - Risk 60-74 years 1-dose series) 2020 COVID-19 VACCINE (1 - 2023- season) 2024 Influenza Vaccine (#1) 2025 Tobacco Cessation Counseling and Screening (12+) 10/2010/20/2024 DTAP/TDAP/TD VACCINES (2 - Td or Tdap) 04/26/2027 Insurance [facility] MEDICAID Care Teams Palliative Nurse Relationship Specialty Start Date End Date Chilo Cabrera, [address] [facility] [address] [place] [address] PCP - General Internal Medicine 10/20/24
--- OUTSIDE RECORDS SUMMARY | 2025-02-19 08:58 | XMS_ITS | Clinical Summary ---
Author Organization [facility] Address [address] [place] [address] Phone Care Team Providers Care Rag Willow Operator Name Role Phone Sajan Jc MD Primary Care Provider [phone] Allergies Active Allergy Reactions Criticality Noted Date Comments Penicillins 11/28/2013 Medications ALBUTEROL INHL Inhale into the lungs. Active ondansetron (ZOFRAN) 4 mg tablet Take 1 Tab by mouth every 6 hours as needed for Nausea. 10 Tab 0 11/28/2013 Active Medical History Medical History Date Comments COPD (chronic obstructive pulmonary disease) (HC C) Social History Tobacco Use Types Packs/Day Years Used Date Smoking Tobacco: Former Smokeless Tobacco: Never Alcohol Use Standard Drinks/Week Comments No 0 (1 standard drink = 0.6 oz pur e alcohol) Sex and Gender Information Value Date Recorded Sex Assigned at Not on file Legal Sex Male 2:06 PM EDT Gender Identity Not on file Sexual Orientation Not on file Obstetrics History Last Filed Vital Signs Vital Sign Reading Time Taken Comments Blood Pressure 146/76 11/28/2013 4:23 PM EDT Pulse 82 11/28/2013 4:23 PM EDT Temperature 37.1 C (98.8 F) 11/28/2013 2:09 PM EDT Respiratory Rate 20 11/28/2013 4:23 PM EDT Oxygen Saturation 98% 11/28/2013 2:09 PM EDT Inhaled Oxygen Concentration - - Weight 98.9 kg (218 lb) 11/28/2013 2:09 PM EDT Height 176.5 cm (5' 9.5 ) 11/28/2013 2:09 PM EDT Body Mass Index 31.73 11/28/2013 2:09 PM EDT Plan of Treatment Health Maintenance Due Date Last Done Comments Annual Wellness Exam 11/03/1963 Hepatitis C Screening 1978 DTaP/TDaP/Td (1 - Tdap) 11/03/1979 Cologuard 2005 Colon Cancer Screening 2005 Colonoscopy 2005 FIT 2005 Sigmoidoscopy 2005 Virtual Colonography 2005 Pneumococcal Vaccine 50+ (1 of 1 - PCV) 2010 Zoster (1 of 2) 2010 COVID-19 Vaccine (1 - 2023-2 5 season) 2024 Influenza Vaccine (#1) 2025 Hepatitis B Vaccine Aged Out No longe r eligible based on patient's age to complete this topic Meningococcal B Vaccine Aged Out No l onger eligible based on patient's age to complete this topic Insurance [employer] Care Teams Rag Willow Operator Relationship Specialty Start Date End Date Sajan Jc MD [address] [place] [address] [place] [address] [place] [address] PCP - General Family Medicine 11/28/13
--- OUTSIDE RECORDS SUMMARY | 2025-02-19 08:58 | XMS_ITS | Referral Summary ---
Author Organization [employer] ([place] Address [address] [place] [address] Care Team Providers Care Sleeping Car Conductor Name Role Phone JoseChilo fuentes Primary Care Provider [phone] Encounters Date Type Department Care Team Description 11/20/2024 Orders Only [facility] Cardiology - [address] [address] Isaias Melgar MD Ischemic heart disease (Primary Dx) from Last 3 Months Allergies Active Allergy Reactions Criticality Noted Date [...] reflux disease 10/17/2020 Shortness of breath 09/17/2020 Social History Tobacco Use Types Packs/Day Years [...] Description 04/22/2025 9:45 AM EDT Office Visit [facility] Cardiology - [place] [address] [place] [phone] Isaias Melgar MD [address] [facility] [address] [place] [address] Insurance [facility] MEDICAID Care Teams Sleeping Car Conductor Relationship Specialty Start Date End Date Chilo Cabrera DO [address] [facility] [address] [place] [address] PCP - General Internal Medicine 10/20/24
--- OUTSIDE RECORDS SUMMARY | 2025-02-19 08:58 | XMS_ITS | Encounter Summary ---
Author Organization Healthcare Address [address] [place] [address] Care Team Providers Care Crew Leader/Control Room Operator Name Role Phone Chip Falcon MD Primary Care Provider [phone] Norma Stephenson APRN Primary Care Provider [phone] Encounter Details Date Type Department Care Team ([facility] st Contact Info) Description 02/21/2024 Orders Only External Location [address] [place] [address] Provider, External Social History Tobacco Use Types Packs/Day Years Used Date Smoking Tobacco: Former Cigarettes 2 35 1 973 - 2008 Smokeless Tobacco: Never Alcohol Use Standard Drinks/Week [...] on file documented as of this encounter Goals Goal Patient Goal Type Associated Problems Recent Progress Patient-Stated? Author to get a splint Occupational Therapy No Ana Laura Diaz documented as of this encounter Procedures Procedure Name Priority Date/Time Associated Diagnosis Comments XR OUTSIDE IMAGES 02/21/2024 2:32 PM EDT documented in this encounter Results * XR OUTSIDE IMAGES (02/21/2024 2:32 PM EDT) Anatomical Region Laterality Modality Radiographic Kelsie ging 02/21/2024 2:32 PM EDT us External Provider IMG XR PROCEDURES Final Result documented in this encounter Visit Diagnoses Not on filedocumented in this encounter Additional Health Concerns Assessment Noted Time A fall risk assessment has been complete d for the patient 11/17/2021 10:46 AM EDT A Body Mass Index follow-up plan has been documented for the patient 11/03/2022 8:42 AM EDT documented as of this encounter Care Teams Crew Leader/Control Room Operator Relationship Specialty Start Date End Date Chip Falcon MD [address] [place] [address] PCP - General 11/11/21 05/25/24 Norma Stephenson APRN [address] [place] [address] PCP - General 05/26/24 documented as of this encounter
--- OUTSIDE RECORDS SUMMARY | 2025-02-19 08:58 | XMS_ITS | Encounter Summary ---
Author Organization Healthcare Address [address] [place] [address] Care Team Providers Care Or Scrub Tech Name Role Phone Chip Falcon MD Primary Care Provider [phone] Norma Stephenson APRN Primary Care Provider [phone] Encounter Details Date Type Department Care Team (Late st Contact Info) Description 03/19/2024 Orders Only External Location [address] [place] [address] Edvin Govea, DO [address] [place] [address] Social History Tobacco Use Types Packs/Day Years [...] Procedure Name Priority Date/Time Associated Diagnosis Comments IR OUTSIDE IMAGES 03/19/2024 1:15 PM EDT documented in this encounter Results * IR OUTSIDE IMAGES (03/19/2024 1:15 PM EDT) Anatomical Region Laterality Modality X-Ray Angiograph y 03/19/2024 1:15 PM EDT us Gene Linda Kruegert DO IMG IR PROCEDURES Final Result documented in this encounter Visit Diagnoses Not on filedocumented in this encounter Additional Health Concerns Assessment Noted Time A fall risk assessment has been complete d for the patient 11/17/2021 10:46 AM EDT A Body Mass Index follow-up plan has been documented for the patient 11/03/2022 8:42 AM EDT documented as of this encounter Care Teams Or Scrub Tech Relationship Specialty Start Date End Date Chip Falcon MD [address] [place] [address] PCP - General 11/11/21 05/25/24 Norma Stephenson APRN [address] [place] [address] PCP - General 05/26/24 documented as of this encounter
--- OUTSIDE RECORDS SUMMARY | 2025-02-19 08:58 | XMS_ITS | Clinical Summary ---
Author Organization [facility] Address [address] [place] [address] Care Team Providers Care Training Representative Name Role Phone Norma Stephenson MISHEL Primary Care Provider [phone] Allergies Active Allergy Reactions Criticality Noted Date Comments Azithromycin Other - please docum ent in the comment field Low 11/03/2021 Upset Stomach Clindamycin Other - please docum ent in the comment field Low 11/03/2021 Upset stomach Penicillins Rash Low 11/28/2013 Medications potassium chloride ER (Micro-K) 10 MEQ ER capsule Take 2 capsules (20 mEq) by mouth 1 (one) time each day. 2 Active omeprazole (PriLOSEC) [address] capsule Take 1 capsule (40 mg) by mouth 1 (one) time each day. 2 Active lisinopril 10 MG tablet Take 1 tablet (10 mg) by mouth 1 (one) time each day. 2 Active clopidogrel (Plavix) 75 MG tablet Take 1 tablet (75 mg) by mouth 1 (one) time each day. Last dose 11/05/2021 per surgeon 2 Active citalopram (CeleXA) 20 MG tablet Take 1 tablet (20 mg) by mouth 1 (one) time each day. 2 Active atorvastatin (Lipitor) 20 MG tablet Take 1 tablet (20 mg) by mouth 1 (one) time each day. 2 Active cholecalciferol (Vitamin D-3) 25 MCG (1000 UT) tablet Take 1 tablet (1,000 Units) by mouth 1 (one) time each day. Active cetirizine (ZyrTEC) 10 MG tablet Take 1 tablet (10 mg) by mouth 1 (one) time each day. 2 Active bisoprolol (Zebeta) 10 MG tablet Take 1 tablet (10 mg) by mouth 1 (one) time each day. 4 Active Earwax Removal 6.5 % otic solution Administer 5 drops into each ear if needed for ear pain. 4 Active methocarbamol (Robaxin) 750 MG tablet Take 1 tablet (750 mg) by mouth if needed. 4 Active gabapentin (Neurontin) 100 MG capsule Take 1 capsule (100 mg) by mouth 3 (three) times a day. If this medication makes you drowsy you may take it only at bedtime 30 capsule 4 Active Additional Information Patient not taking.Reported on 08/14/2024 acetaminophen (Tylenol Extra Strength) 500 MG tablet Take 2 tablets (1,000 mg) by mouth every 8 (eight) hours. 100 tablet 5 Active traMADol (Ultram) 50 MG tablet Take 1 tablet (50 mg) by mouth every 8 (eight) hours if needed for severe pain. 20 tablet 5 Active Active Problems Problem Noted Date Diagnosed Date Arthritis of right hip 06/16/2024 Unilateral primary osteoarthritis, right hip 06/2024 Basal cell carcinoma (BCC) of skin of right wris t 11/03/2021 Overview (11/03/2021): Added automatically from request for surgery [id number] Scalp lesion 11/03/2021 Overview (11/03/2021): Added automatically from request for surgery [id number] Immunizations Immunization Administration Dates Next Due Tdap 04/26/2017 Family History Medical History Relation Name Comments Cancer Father Alisha- Mario Broken bones Mother Glilibby Osteoporosis Mother Cristina Anesthesia problems Neg Hx Malig Hyperthermia Neg Hx Relation Name Status Comments Father Alisha- Mario Mother Cristina Social History Tobacco Use Types Packs/Day Years Used Date Smoking Tobacco: Former Cigarettes 2 35 0 07/23/1972 - 2007 Smokeless Tobacco: Never Alcohol Use Standard Drinks/Week Comments Not Currently 0 (1 standard drink = 0.6 oz pur e alcohol) Quit drinking in 1997 Sex and Gender Information Value Date Recorded Sex Assigned at Not on file Legal Sex Male 6:30 PM EDT Gender Identity Not on file Sexual Orientation Not on file Last Filed Vital Signs Vital Sign Reading Time Taken Comments Blood Pressure 132/85 08/14/2024 9:17 AM EST Pulse 65 08/14/2024 9:17 AM EST Temperature 37 C (98.6 F) 08/14/2024 9:17 AM EST Respiratory Rate 16 06/16/2024 2:55 PM EST Oxygen Saturation 98% 08/14/2024 9:17 AM EST Inhaled Oxygen Concentration - - Weight 99.8 kg (220 lb) 08/14/2024 9:17 AM EST Height 175.3 cm (5' 9 ) 08/14/2024 9:17 AM EST Body Mass Index 32.49 08/14/2024 9:17 AM EST Plan of Treatment Health Maintenance Due Date Last Done Comments [facility]-Depression Screening 1960 [facility]-HIV Screening 1960 [facility]-Hepatitis C Screening 1960 [facility]-/Child/Adol SDOH Screenings 1960 [id number] Vaccine (#1) 1965 [facility]- SDOH Screenings 1978 [facility]-Adult SDOH Screenings 1978 [facility]-Pneumococcal Vaccine: 50+ Years (1 of 2 - PCV) 11/03/1979 [facility]-Zoster Vaccines (1 of 2) 11/03/1979 CT Colonography 2005 Colonoscopy 2005 FIT-DNA 2005 FIT 2005 FOBT 2005 Sigmoidoscopy 2005 [facility]-Colorectal Cancer Screening 2005 [facility]-Influenza Vaccine (#1) 2025 [facility]-DTaP,Tdap,and Td Vaccines (2 - Td or Tdap) 04/26/2027 04/26/2017 [facility]-RSV Vaccine: 60+ Years or (1 - 1-dose 75+ series) 11/03/2035 [facility]-Obesity Intervention Completed 025, 07/01/2024, 06/03/2024, Additional history exists HPV Vaccines Aged Out No longer eligi ble based on patient's age to complete this topic [facility]-HIB Vaccines Aged Out No longer e ligible based on patient's age to complete this topic [facility]-Hepatitis A Vaccines Aged Out No longer eligible based on patient's age to complete this topic [facility]-IPV Vaccines Aged Out No longer e ligible based on patient's age to complete this topic [facility]-Rotavirus Vaccines Aged Out No lo nger eligible based on patient's age to complete this topic Goals Goal Patient Goal Type Associated Problems Recent Progress Patient-Stated? Author to get a splint Occupational Therapy No [employer] Implanted Type Area Process Controls Technician Device Identifier Shelf Expiration Date Model / Serial / Lot Chg Shell R3 3 Hole Acet 54mm - [id number] Implanted:Qty: 1 on 06/16/2024 by Cale Staples MD at [facility] Hip Right: Hip [id number] 04/14/2033 [id number] / / [id number] Chg Head Oxinium Fem 07/05 28m - [id number] Implanted:Qty: 1 on 06/16/2024 by Cale Staples MD at [facility] Hip Right: Hip [employer]-[id number] 01/18/2034 [id number] / / [id number] Liner Or3o Dual Mbility 42 54 - [id number] Implanted:Qty: 1 on 06/16/2024 by Cale Staples MD at [facility] Liner Right: Hip [employer]-[id number] 12/02/2033 [id number] / / [id number] Liner Or3o Dual Mbility Xlpe 28 42 - [id number] Implanted:Qty: 1 on 06/16/2024 by Cale Staples MD at [facility] Liner Right: Hip [employer]-[id number] 11/15/2033 [id number] / / [id number] Chg Screw Ref Spher Head 25mm - [id number] Implanted:Qty: 1 on 06/16/2024 by Cale Staples MD at [facility] Screw Right: Hip [employer]-[id number] 12/21/2033 [id number] / / [id number] Chg Screw Ref Spher Head 35mm - [id number] Implanted:Qty: 1 on 06/16/2024 by Cale Staples MD at [facility] Screw Right: Hip [employer]-[id number] 12/29/2033 [id number] / / [id number] Polarstem Cementless Tiha 3 - [id number] Implanted:Qty: 1 on 06/16/2024 by Cale Staples MD at [facility] Stem Right: Hip [employer]-[id number] 11/14/2030 [id number] / / [id number] Stent Stent N/A: Heart [place] [address] [place] [address] MEDICAID Advance Directives * Full Code (Latest Code Status on File) Date Activated Date Inactivated Comments 06/16/2024 9:00 AM 06/16/2024 5:15 PM Question Answer Comments Patient has decision-making capacity? Yes Care Teams Training Representative Relationship Specialty Start Date End Date Norma Stephenson APRN [address] [place] [address] PCP - General 05/26/24
[2025-02-19 09:55] VITALS: BP 138/74; PULSE 65; RESP 18; O2SAT 97; BMI 33.2
--- NOTE | 2025-02-19 10:01 | EXP.PAIN.OV ---
HPI Data of Consult Patient: new to practice Consult date: 02/19/25 Requesting Physician: Patricia Govea APRN Primary Care Provider: Norma Stephenson APRN Reason for consult: Low back pain, bilateral leg numbness tingling History of present illness: Mr. Sheikh is a 64 year old male who presents today as a new patient. He is a referral from Norma russell office. Today he rates his current pain a 2 but does state it will go up to at least a 5 or more with certain movements. He states that he is had this chronic low back and leg pain for longer than a year and 1/2 to 2 years. Patient denies any specific injury or trauma that initially started this and does believe it is more related to wear and tear. Patient is very active and does work 40 to 50-hour work weeks and exercises and stretches on a regular basis with no additional improvement. Patient denies any prior back injections or surgery history. Patient does state that he has gotten IM steroids from his primary care and that that is did really help. Patient does state that the pain is interfering with his ability to perform activities of daily living such as cooking and cleaning. He has tried oral medications such as Tylenol along with heat and ice and topicals such as Voltaren with minimal changes. Patient does state the pain has been so severe the last 2 weeks he has been unable to work. Patient is interested in anything we may be able to provide. He does have a heart history with stents placed and is on blood thinners. His [place] has been reviewed and is appropriate. Pain at rest (0-10 scale): 5 Has patient had previous pain injection?: No Conservative treatment options previously tried: Home exercise plan (Longer than 12 weeks) cc:: CC: Patricia Govea APRN [facility] Disclaimer: The information contained in this section may have been updated after the patient was seen, as this information can be updated by other users. Medical History Food intolerance Bloating Esophageal pain Abdominal pain Cerumen impaction Acute pain of right hip Kidney stone COPD (chronic obstructive pulmonary disease) Asthma Osteoarthritis History of gastroesophageal reflux (GERD) History of chest pain History of heart attack Hyperlipidemia Hypertension Carotid artery stenosis Surgical History Hx of right heart catheterization Family History Father Lymphoma Social History (Updated 02/19/25 @ 10:00 by Ina Sal RN) Smoking Status: Never smoker alcohol intake: never substance use type: denies use current occupational status: employed Travel in the last 8 weeks?: None household members: spouse housing: house Contact w/someone who lives/traveled outside [place] past 30 days?: No Exposure to someone with infectious disease in past 14 days?: No Do you have a fever (greater than 100.4 F or 38 C)?: No Have you tested positive for COVID-19?: No Exposed to someone with COVID-19 in past 14 days?: No Do you have a sore throat?: No Do you have a cough?: No Do you have any weakness?: No Are you experiencing any nausea/vomitting?: No Do you have any diarrhea?: No Are you experiencing any unusual bleeding?: No Do you have any muscle aches/pain?: No Do you have any abdominal pain?: No Are you experiencing loss of taste or smell?: No Review of Systems Review of Systems Review of systems:: pertinent systems reviewed and negative unless documented below Review of systems (narrative): Review of Systems: General: No recent weight changes, no fever, no sleep disturbances Respiratory: No cough, no shortness of air, no recurring pulmonary infections Cardiovascular/peripheral vascular: No chest pain, no palpitations, no edema, no shortness of breath Gastrointestinal: No new onset incontinence, normal bowel movements reported Genitourinary: No new onset incontinence Musculoskeletal: Low back pain, bilateral leg numbness tingling Psychiatric: [Normal mood/affect] Neurological: [Denies weakness in extremities], [denies balance issues] Meds Home Medications and Allergies Home Medications ?Medication ?Instructions ?Recorded ?Confirmed ?Type aspirin 81 mg tablet,delayed 81 mg PO DAILY Heart disease 11/19/17 02/05/25 History release (Adult Low Dose Aspirin) blood sugar diagnostic (OneTouch #100 ea 11/14/22 02/05/25 Rx Ultra Test strips) blood-glucose meter (Blood Glucose #1 ea 07/24/23 02/05/25 Rx Monitoring kit) bisoprolol fumarate 10 mg tablet See Rx Instructions .Route 11/14/23 02/05/25 Rx .COMPLEX #90 tabs blood-glucose meter (OneTouch #1 ea 01/11/24 02/05/25 History Ultra2 Meter) cetirizine 10 mg tablet See Rx Instructions .Route 07/11/24 02/05/25 Rx .COMPLEX #90 tabs atorvastatin 20 mg tablet See Rx Instructions .Route 10/31/24 02/05/25 Rx .COMPLEX #90 tabs citalopram 20 mg tablet 20 mg PO DAILY #90 tabs 10/31/24 02/05/25 Rx clopidogrel 75 mg tablet See Rx Instructions .Route 10/31/24 02/05/25 Rx .COMPLEX #90 tabs lisinopril 10 mg tablet See Rx Instructions .Route 10/31/24 02/05/25 Rx .COMPLEX #90 tabs omeprazole 40 mg capsule,delayed See Rx Instructions .Route 10/31/24 02/05/25 Rx release .COMPLEX #90 caps New Prescriptions to Start Prescriptions: Allergies Allergy/AdvReac Type Severity Reaction Status Date / Time erythromycin base Allergy Mild UPSET Verified 10/03/24 08:40 (ERYTHROMYCIN BASE) STOMACH Macrolide Antibiotics Allergy Mild UPSET Verified 10/03/24 08:40 (MACROLIDE ANTIBIOTICS) STOMACH Objective Narrative: Physical Exam: General: Alert and oriented x3, no acute distress, pleasant and cooperative Lungs: Respirations even and unlabored, symmetrical chest expansion Eyes: PERRL Musculoskeletal: Flexion and extension of lumbar [spine] somewhat guarded secondary to pain, positive leg raise Neurological: Speech clear, no gross sensory deficit Additional findings Additional findings: FINDINGS: CT LUMBAR SPINE TECHNIQUE: Thin section axial CT with sagittal and coronal reconstructions This study was performed with techniques to keep radiation doses as low as reasonably achievable, (ALARA). Individualized dose reduction techniques using automated exposure control or adjustment of mA and/or kV according to the patient's size were employed. FINDINGS: No fracture is present. Alignment is normal. Diffuse degenerative changes are noted. There is significant degenerative canal stenosis at L3-4 and L4-5 with neuroforaminal narrowing. IMPRESSION: No acute bony abnormality. Significant degenerative canal stenosis in the lower lumbar spine. Reviewed, Interpreted and Dictated by Tanner Bell MD Transcribed by Myra Kauffman Authenticated and [facility] Assessment and Plan *Assessment and plan (1) Degenerative disc disease: Status: Acute Category: Medical (2) Lumbar radicular pain: Status: Chronic Category: Medical Code(s): M54.16 - Radiculopathy, lumbar region Plan Patient is experiencing worsening pain in his low back with numbness and tingling into his lower extremities. Patient did have limited range of motion of his lumbar spine with a positive leg raise. I did discuss with patient that I do believe they would benefit from a lumbar epidural steroid injection. Risk and benefits were discussed with patient and the patient would like to proceed forward with this plan of care. Patient is currently on blood thinners written by Dr. Barragan's office. We will reach out to this provider and confirm he can stop this medication prior to this injection.. Patient has tried and failed conservative therapy including oral medications, heat and ice, topicals and continued at home stretching exercise for longer than 12 weeks. Patient has had chronic back pain for longer than 6 months. Patient has not had any previous epidurals to compare to. We will schedule the patient for an LESI L4-L5 under fluoroscopy. I will also order the patient a compounded cream. Patient has been instructed to contact the clinic with any concerns before the next appointment. Dr. Kiran has reviewed this note and agrees with this plan of care. This note was dictated using voice recognition software and make contain errors or omissions. All injections are used with Lidocaine, Bupivacaine and dexamethasone. Occasionally urine drug screen is needed to verify patient's compliance with our office pain contract. This is ordered based off specific treatments related to chronic pain with the potential to abuse certain medications.
== END 2025-02-19 23:59 | disposition home or self-care (01) ==
LOC: SC.PAIN 08:52
PROVIDERS: PCP Family Medicine; Visit Provider Nurse Practitioner Family
DX: M54.16 Radiculopathy, lumbar region (principal)
CPT/HCPCS: 99202; G0463

== ENCOUNTER 2025-03-31 08:20 | Day surgery (SDC) | payer MEDICAID, SELFPAY ==
[2025-03-31 08:39] VITALS: BP 115/69; PULSE 57; RESP 18; O2SAT 98; BMI 33.2
--- NOTE | 2025-03-31 08:58 | EXP.PAIN.PRO ---
Procedure Date: 03/31/25 Time: 08:40 Anesthesiologist:: Gianluca Bray CRNA Complications:: None Pre-procedure Diagnosis:: Generative disc lumbar spine multilevels for lumbar radiculopathy. Post-procedure Diagnosis:: Same. Indications for Procedure:: Patient is a pleasant 64-year-old male who comes our clinic today for lumbar epidural steroid injection. Patient describes low lumbar back pain as constant, dull, aching. He also reports bilateral hip and leg radicular symptoms. He rates his pain 7/10. Procedure Details:: Procedure: Lumbar epidural steroid injection under fluoroscopy Informed consent was obtained and the risks and benefits of the procedure were explained to the patient. The patient was taken to the procedure room and noninvasive monitors placed, including noninvasive blood pressure cuff and pulse oximeter. The back was viewed using C-arm Fluoroscopy and prepped using Chloraprep as a cleansing solution and the L4-L5 interspace was palpated. Skin and subcutaneous tissues were anesthetized using lidocaine 1.5% and a 25-gauge needle. After this, an 18-gauge Touhy epidural needle was placed into the L4-L5 interspace and advanced using fluoroscopic guidance and loss of resistance to air until the epidural space was encountered. After confirmation of needle placement in the epidural space, with dye, a solution containing normal saline, 3 mL and dexamethasone 10 mg were incrementally injected into the lumbar epidural space. The patient tolerated the procedure well with no complications. The patient was observed in the Pain Clinic and then discharged home neurologically intact. Plan and Disposition:: Patient was discharged without incident.
[2025-03-31 09:02] VITALS: BP 117/74; PULSE 56; RESP 18; O2SAT 97
[2025-03-31] MEDS: DEXAMETHASONE 10MG/ML 1ML VIAL 10 MG (09:04)
[2025-03-31 09:05] VITALS: BP 144/70; PULSE 58; RESP 18; O2SAT 97
== END 2025-03-31 09:02 | disposition home or self-care (01) ==
PROVIDERS: PCP Family Medicine; Visit Provider Nurse Anesthetist, Certified Registered
DX: M51.16 Intervertebral disc disorders with radiculopathy, lumbar region (principal); K21.9 Gastro-esophageal reflux disease without esophagitis; E78.5 Hyperlipidemia, unspecified; I10 Essential (primary) hypertension; I25.2 Old myocardial infarction; Z88.1 Allergy status to other antibiotic agents; Z79.899 Other long term (current) drug therapy
CPT/HCPCS: 62323; J1100

== ENCOUNTER 2025-06-16 08:11 | Day surgery (SDC) | payer MEDICAID, SELFPAY ==
[2025-06-16 08:28] VITALS: BP 136/84; PULSE 55; RESP 16; O2SAT 98; BMI 33.0
[2025-06-16 08:50] VITALS: BP 145/83; PULSE 58; RESP 18; O2SAT 98
[2025-06-16] MEDS: DEXAMETHASONE 10MG/ML 1ML VIAL 10 MG (08:53)
[2025-06-16 08:56] VITALS: BP 145/83; PULSE 57; RESP 18; O2SAT 97
[2025-06-16] MEDS: IOPAMIDOL-200 (41%);10ML VIAL 10 ML IV (08:59)
--- NOTE | 2025-06-16 09:00 | P.PCN_ITS ---
Procedure Date: 06/16/25 Time: 09:00 Anesthesiologist:: Gianluca Bray CRNA Complications:: None Pre-procedure Diagnosis:: Degenerative disc cervical spine multilevels. Cervical radiculopathy. Disc bulge cervical spine multilevel. Post-procedure Diagnosis:: Same. Indications for Procedure:: Patient is a very pleasant 64-year-old male who comes to clinic today for cervical epidural steroid injection. Patient describes posterior cervical neck pain as constant, dull, aching. Also left arm and hand radicular symptoms. He rates his pain 6/10. Procedure Details:: Procedure:Cervical epidural steroid injection Informed consent was obtained and the risks and benefits of the procedure were explained to the patient. The patient was taken to the procedure room and noninvasive monitors placed, including noninvasive blood pressure cuff and pulse oximeter. The neck was prepped using Chloraprep as a cleansing solution. The C6- C7 interspace was viewed using fluroscopy. The skin and subcutaneous tissues were anesthetized using lidocaine 1.5% and a 25-gauge needle. After this an 18- gauge Touhy epidural needle was placed into the C6-C7 interspace under fluroscopy guidance and advanced using loss of resistance to air until the epidu ral space was encountered. After confirmation of needle placement in the epidural space using contrast dye, dexamethasone 10 mg ( 1 ML) was incrementally injected into the cervical epidural space.~ The patient tolerated the procedure well with no complications. The patient was observed in the Pain Clinic and then discharged home neurologically intact. Plan and Disposition:: Patient was discharged without incident.
[2025-06-16 09:01] VITALS: BP 150/89; PULSE 65; RESP 16; O2SAT 96
== END 2025-06-16 09:01 | disposition home or self-care (01) ==
PROVIDERS: PCP Family Medicine; Visit Provider Nurse Anesthetist, Certified Registered
DX: M50.123 Cervical disc disorder at C6-C7 level with radiculopathy (principal); J44.9 Chronic obstructive pulmonary disease, unspecified; K21.9 Gastro-esophageal reflux disease without esophagitis; I25.2 Old myocardial infarction; E78.5 Hyperlipidemia, unspecified; I10 Essential (primary) hypertension; Z87.442 Personal history of urinary calculi; M19.90 Unspecified osteoarthritis, unspecified site; Z79.899 Other long term (current) drug therapy; Z79.82 Long term (current) use of aspirin
CPT/HCPCS: 62321; J1100; Q9966